=== PATIENT | female | born 1980 | race Hispanic/Latino ===

== ENCOUNTER 2019-09-09 08:38 | Emergency (ER) | payer OTHER, SELFPAY ==
--- OUTSIDE RECORDS SUMMARY | 2019-09-09 08:40 | XMS REPORT ---
:1980 [facility] Address [address] [place] [address] Dr. D[address] [place] [id number] Care Team Providers Name Role Phone Unavailable Unavailable Unavailable Problems This patient has no known problems. Allergies, Adverse Reactions, Alerts This patient has no known allergies or adverse reactions. Medications This patient has no known medications.
[2019-09-09 10:17] LABS: Absolute Lymphocytes (CBC) 0.7 K/uL (0.7-4.9); Basophils % 0.2 % (0-1.3); Hematocrit 43.4 % (36.0-45.0); Lymphocytes % 7.1 % (15.3-44.8); MPV 9.2 fL (7.6-11.3); RBC Red Blood Cell Count 5.19 M/uL (3.86-4.86)
[2019-09-09 10:31] LABS: ALT/SGPT 86 U/L (12-78); AST/SGOT 51 U/L (15-37); Albumin 3.8 g/dL (3.4-5.0); Alkaline Phosphatase 87 U/L (45-117); BUN Blood Urea Nitrogen 18 mg/dL (7-18); Bicarbonate 27 mmol/L (21-32); Bilirubin Direct 0.2 mg/dL (0-0.2); Bilirubin Total 0.7 mg/dL (0.2-1.0); Glucose Level 88 mg/dL (74-106); Lipase 131 U/L (73-393); Potassium 3.7 mmol/L (3.5-5.1); Protein, Total 7.1 g/dL (6.4-8.2); Sodium Level 142 mmol/L (136-145)
[2019-09-09] MEDS ORDERED: NA CHLORIDE 0.9% 500 ML ONE (10:31)
[2019-09-09 10:39] LABS: Urine Blood NEGATIVE (NEG); Urine Glucose NEGATIVE (NEG); Urine Protein NEGATIVE (NEG); Urine Specific Gravity 1.025 (1.005-1.030); Urine pH 7.5 (5.0-7.0)
--- NOTE | 2019-09-09 10:44 | RAD REPORT ---
EXAM DESCRIPTION: US - Abdomen Exam Limited - 09/09/2019 10:32 am CLINICAL HISTORY: Abdominal pain. COMPARISON: 2016 FINDINGS: The gallbladder wall is borderline thickened. A gallstone is not seen The biliary tree is normal caliber. IMPRESSION: Borderline gallbladder wall thickening probably not significant. Acalculous cholecystiti s can also have this appearance and should be correlated clinically
[2019-09-09 11:00] LABS: Blood Morphology Comment NOT SEEN (NOT SEEN); Platelet Estimate ADEQ
--- NOTE | 2019-09-09 11:37 | EDPHYS ---
Physician Documentation [facility] Name: Yanique Mcrae Age: 38 yrs Sex: Female : 1980 Arrival Date: 09/09/2019 Time: 08:45 Bed 15 Private MD: ED Physician Jarvis Patel HPI: 09/09 09:36 This 38 yrs old Female presents to ER via Ambulatory with complaints of khushboo Abdominal Pain, Vomiting. 09:36 The patient presents to the emergency department with nausea, vomiting, abdominal pain, khushboo of the right upper quadrant and left upper quadrant. Onset: The symptoms/episode began/occurred just prior to arrival, this morning. Possible causes: unknown. The symptoms are aggravated by food , The symptoms are alleviated by nothing. Associated signs and symptoms: The patient has no apparent associated signs or symptoms. 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 - Coronavirus screen:: The patient has NOT traveled to [place], [place], or [place] in the past 14 days. Proceed with normal triage process as indicated. - Social history:: Smoking status: Patient denies any tobacco usage or history of. - Ebola Screening: : Patient denies exposure to infectious person Patient denies travel to an Ebola-affected area in the 21 days before illness onset. ROS: 09:40 Constitutional: Negative for fever, chills, and weight loss, Eyes: Negative for injury, khushboo pain, redness, and discharge, ENT: Negative for injury, pain, and discharge, Neck: Negative for injury, pain, and swelling, Cardiovascular: Negative for chest pain, palpitations, and edema, Respiratory: Negative for shortness of breath, cough, wheezing, and pleuritic chest pain, Back: Negative for injury and pain, : Negative for injury, bleeding, discharge, and swelling, MS/Extremity: Negative for injury and deformity, Skin: Negative for injury, rash, and discoloration, Neuro: Negative for headache, weakness, numbness, tingling, and seizure, Psych: Negative for depression, anxiety, suicide ideation, homicidal ideation, and hallucinations, Allergy/Immunology: Negative for hives, rash, and allergies, Endocrine: Negative for neck swelling, polydipsia, polyuria, polyphagia, and marked weight changes, Hematologic/Lymphatic: Negative for swollen nodes, abnormal bleeding, and unusual bruising. 09:40 Abdomen/GI: Positive for abdominal pain, of the epigastric area, right upper quadrant and left upper quadrant. Exam: 09:40 Constitutional: This is a well developed, well nourished patient who is awake, alert, khushboo and in no acute distress. Head/Face: Normocephalic, atraumatic. Eyes: Pupils equal round and reactive to light, extra-ocular motions intact. Lids and lashes normal. Conjunctiva and sclera are non-icteric and not injected. Cornea within normal limits. Periorbital areas with no swelling, redness, or edema. ENT: Nares patent. No nasal discharge, no septal abnormalities noted. Tympanic membranes are normal and external auditory canals are clear. Oropharynx with no redness, swelling, or masses, exudates, or evidence of obstruction, uvula midline. Mucous membranes moist. Neck: Trachea midline, no thyromegaly or masses palpated, and no cervical lymphadenopathy. Supple, full range of motion without nuchal rigidity, or vertebral point tenderness. No Meningismus. Chest/axilla: Normal chest wall appearance and motion. Nontender with no deformity. No lesions are appreciated. Cardiovascular: Regular rate and rhythm with a normal S1 and S2. No gallops, murmurs, or rubs. Normal PMI, no JVD. No pulse deficits. Respiratory: Lungs have equal breath sounds bilaterally, clear to auscultation and percussion. No rales, rhonchi or wheezes noted. No increased work of breathing, no retractions or nasal flaring. Back: No spinal tenderness. No costovertebral tenderness. Full range of motion. Pelvic Exam: Normal external genitalia. Speculum exam with closed cervical os, no discharge or bleeding noted. Bimanual exam with normal adnexa, no adnexal or cervical motion tenderness. Normal uterus. Female : Normal external genitalia. Skin: Warm, dry with normal turgor. Normal color with no rashes, no lesions, and no evidence of cellulitis. MS/ Extremity: Pulses equal, no cyanosis. Neurovascular intact. Full, normal range of motion. Neuro: Awake and alert, GCS 15, oriented to person, place, time, and situation. Cranial nerves II-XII grossly intact. Motor strength 5/5 in all extremities. Sensory grossly intact. Cerebellar exam normal. Normal gait. Psych: Awake, alert, with orientation to person, place and time. Behavior, mood, and affect are within normal limits. 09:40 Abdomen/GI: Inspection: abdomen appears normal, Bowel sounds: normal, Palpation: Liver: no appreciated palpable abnormalities, Hernia: not appreciated. Vital Signs: 09:04 BP 104 / 75; Pulse 80; Resp 15; Temp 98.4(TE); Pulse Ox 97% on R/A; Weight 55.79 kg; ss Height 5 ft. 1 in. (154.94 cm); Pain 0/10; 10:17 BP 117 / 85; Pulse 74; Resp 18 S; Pulse Ox 95% on R/A; ca1 11:00 BP 106 / 74; Pulse 75; Resp 19 S; Pulse Ox 98% on R/A; ca1 12:00 BP 111 / 73; Pulse 64; Resp 16 S; Pulse Ox 95% on R/A; ca1 09:04 Body Mass Index 23.24 (55.79 kg, 154.94 cm) MDM: 08:52 Patient medically screened. [facility] 09:41 Data reviewed: vital signs, nurses notes, lab test result(s), radiologic studies, [facility] ultrasound. 09/09 09:36 Order name: Basic Metabolic Panel [facility] 09/09 09:36 Order name: CBC with Diff [facility] 09/09 09:36 Order name: Creatinine for Radiology [facility] 09/09 09:36 Order name: Hepatic Function [facility] 09/09 09:36 Order name: Lipase [facility] 09/09 10:15 Order name: Urine Dipstick--Ancillary (enter results) 09/09 10:15 Order name: Urine --Ancillary (enter results) 09/09 10:24 Order name: CBC with Automated Diff; Complete Time: 11:11 [facility] 09/09 10:28 Order name: Creatinine (Radiology Only); Complete Time: 11:11 [facility] 09/09 10:32 Order name: Basic Metabolic Panel; Complete Time: 11:11 [facility] 09/09 10:32 Order name: Liver (Hepatic) Function; Complete Time: 11:11 [facility] 09/09 10:32 Order name: Lipase; Complete Time: 11: [facility] 09/09 10:39 Order name: Urine --Ancillary; Complete Time: : [facility] 09/09 10:39 Order name: Urine Dipstick-Ancillary; Complete Time: 11:11 [facility] 09/09 09:36 Order name: IV Saline Lock; Complete Time: 10:15 [facility] 09/09 09:36 Order name: Labs collected and sent; Complete Time: 10:16 [facility] 09/09 09:36 Order name: US Abdomen Limited [facility] 09/09 09:36 Order name: Urine Dipstick-Ancillary (obtain specimen); Complete Time: 10:14 [facility] 09/09 09:36 Order name: Urine Test (obtain specimen); Complete Time: 10:14 [facility] 09/09 10:50 Order name: US; Complete Time: : [facility] 09/09 11:01 Order name: Manual Differential; Complete Time: : [facility] Administered Medications: 10:30 Drug: NS 0.9% 500 ml Route: IV; Rate: bolus; Site: right antecubital; ca1 11:05 Follow up: Response: No adverse reaction; IV Status: Completed infusion ca1 Disposition: 09/09/19 11:36 Discharged to Home. Impression: Abdominal tenderness, Cholelithiasis, Functional dyspepsia. - Condition is Stable. - Discharge Instructions: Abdominal Pain, Adult, Nausea and Vomiting, Adult, Cholelithiasis, Cholelithiasis, Drpk-fa-[id number], Nausea and Vomiting, Adult, Xwql-td-[id number], Abdominal Pain, Adult, Xrxu-ap-Cqfm. - Prescriptions for Bentyl 20 mg Oral Tablet - take 1 tablet by ORAL route every 6 hours As needed; 20 tablet. Pepcid 20 mg Oral Tablet - take 1 tablet by ORAL route every 12 hours for 10 days; 20 tablet. Zofran 4 mg Oral Tablet - take 1 tablet by ORAL route every 12 hours As needed; 20 tablet. Keflex 500 mg Oral Capsule - take 1 capsule by ORAL route every 6 hours for 10 days; 28 capsule. - Medication Reconciliation Form, Thank You Letter, Antibiotic Education, Prescription Opioid Use form. - Follow up: Fuentes Bishop; When: 2 - 3 days; Reason: Recheck today's complaints, Re-evaluation by your physician. - Problem is new. - Symptoms have improved. Signatures: Dispatcher [employer] EDWI Jarvis Patel MD MD cha Smirch, Shelby, RN RN ss Vi Fierro RN RN ca1 Corrections: (The following items were deleted from the chart) 12:35 11:36 09/09/2019 11:36 Discharged to Home. Impression: Abdominal tenderness; ca1 Cholelithiasis; Functional dyspepsia. Condition is Stable. Discharge Instructions: Abdominal Pain, Adult, Cholelithiasis, Cholelithiasis, Jyeb-ae-Zwgn, Abdominal Pain, Adult, Oluc-qn-Gpyp. Prescriptions for Bentyl 20 mg Oral Tablet - take 1 tablet by ORAL route every 6 hours As needed; 20 tablet, Pepcid 20 mg Oral Tablet - take 1 tablet by ORAL route every 12 hours for 10 days; 20 tablet, Zofran 4 mg Oral Tablet - take 1 tablet by ORAL route every 12 hours As needed; 20 tablet. and Forms are Medication Reconciliation Form, Thank You Letter, Antibiotic Education, Prescription Opioid Use. Follow up: Fuentes Bishop; When: 2 - 3 days; Reason: Recheck today's complaints, Re-evaluation by your physician. Problem is new. Symptoms have improved. khushboo
--- NOTE | 2019-09-09 11:37 | ER ---
Nurse's Notes [facility] Name: Yanique Mcrae Age: 38 yrs Sex: Female : 1980 Arrival Date: 09/09/2019 Time: 08:45 Bed 15 Private MD: Diagnosis: Abdominal tenderness;Cholelithiasis;Functional dyspepsia Presentation: 09/09 09:06 Presenting complaint: Patient states: vomiting x 1 and upper abd cramping that comes ss and goes x 2 days. Transition of care: patient was not received from another setting of care. Onset of symptoms was September 09, 2019. Risk Assessment: Do you want to hurt yourself or someone else? Patient reports no desire to harm self or others. Initial Sepsis Screen: Does the patient meet any 2 criteria? No. Patient's initial sepsis screen is negative. Does the patient have a suspected source of infection? No. Patient's initial sepsis screen is negative. Care prior to arrival: None. 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 - Coronavirus screen:: The patient has NOT traveled to [place], [place], or [place] in the past 14 days. Proceed with normal triage process as indicated. - Social history:: Smoking status: Patient denies any tobacco usage or history of. - Ebola Screening: : Patient denies exposure to infectious person Patient denies travel to an Ebola-affected area in the 21 days before illness onset. Screenin:02 Abuse screen: Denies threats or abuse. Denies injuries from another. Nutritional ca1 screening: No deficits noted. Tuberculosis screening: No symptoms or risk factors identified. Fall Risk IV access (20 points). Assessment: 10:02 General: Appears in no apparent distress. comfortable, Behavior is calm, cooperative, ca1 appropriate for age. 10:02 Pain: Complains of pain in epigastric area and left upper quadrant and right upper ca1 quadrant Pain does not radiate. Pain currently is 6 out of 10 on a pain scale. Pain began 1 day ago. Neuro: Level of Consciousness is awake, alert, obeys commands, Oriented to person, place, time, situation, Appropriate for age. Respiratory: Airway is patent Respiratory effort is even, unlabored, Respiratory pattern is regular, symmetrical, Breath sounds are clear bilaterally. GI: Abdomen is round non-distended, Bowel sounds present X 4 quads. Abd is soft X 4 quads Abdomen is tender to palpation in epigastric area and left upper quadrant and right upper quadrant Reports nausea, vomiting, since last night. : No signs and/or symptoms were reported regarding the genitourinary system. EENT: No deficits noted. No signs and/or symptoms were reported regarding the EENT system. Derm: Skin is intact, is healthy with good turgor, Skin is pink, warm \T\ dry. Musculoskeletal: Circulation, motion, and sensation intact. Capillary refill < 3 seconds. 10:17 Reassessment: Patient appears in no apparent distress at this time. Patient and/or ca1 family updated on plan of care and expected duration. Pain level reassessed. Patient is alert, oriented x 3, equal unlabored respirations, skin warm/dry/pink. 11:11 Reassessment: Patient appears in no apparent distress at this time. Patient and/or ca1 family updated on plan of care and expected duration. Pain level reassessed. Patient is alert, oriented x 3, equal unlabored respirations, skin warm/dry/pink. 12:05 Reassessment: Patient appears in no apparent distress at this time. Patient is alert, ca1 oriented x 3, equal unlabored respirations, skin warm/dry/pink. Vital Signs: 09:04 BP 104 / 75; Pulse 80; Resp 15; Temp 98.4(TE); Pulse Ox 97% on R/A; Weight 55.79 kg; Height 5 ft. 1 in. (154.94 cm); Pain 0/10; 10:17 BP 117 / 85; Pulse 74; Resp 18 S; Pulse Ox 95% on R/A; ca1 11:00 BP 106 / 74; Pulse 75; Resp 19 S; Pulse Ox 98% on R/A; ca1 12:00 BP 111 / 73; Pulse 64; Resp 16 S; Pulse Ox 95% on R/A; ca1 09:04 Body Mass Index 23.24 (55.79 kg, 154.94 cm) ED Course: 08:45 Patient arrived in ED. mr 08:52 Jarvis Patel MD is Attending Physician. khushboo 08:56 Karma Blanc, RN is Primary Nurse. [facility] 09:04 Arm band placed on right wrist. 09:07 Triage completed. 10:02 Patient has correct armband on for positive identification. Placed in gown. Bed in low ca1 position. Call light in reach. Side rails up X 1. Pulse ox on. NIBP on. Warm blanket given. 10:16 No provider procedures requiring assistance completed. Initial lab(s) drawn, by id, ca1 sent to lab. Inserted saline lock: 20 gauge in right antecubital area, using aseptic technique. Blood collected. 11:36 Fuentes Bishop MD is Referral Physician. khushboo 12:33 IV discontinued, intact, bleeding controlled, No redness/swelling at site. Pressure ca1 dressing applied. Administered Medications: 10:30 Drug: NS 0.9% 500 ml Route: IV; Rate: bolus; Site: right antecubital; ca1 11:05 Follow up: Response: No adverse reaction; IV Status: Completed infusion ca1 Outcome: 11:36 Discharge ordered by . khushboo 12:33 Discharged to home ambulatory, with family. ca1 12:33 Condition: stable 12:33 Discharge instructions given to patient, Instructed on discharge instructions, follow up and referral plans. medication usage, Demonstrated understanding of instructions, follow-up care, medications, Prescriptions given X 4. 12:35 Patient left the ED. ca1 Signatures: Jarvis Patel MD MD cha Rivera, Mary mr Chelsey Washington, RN RN Karma Blanc, JENIFFER SWIFT jlVi Rivera RN RN ca1
[2019-09-11 05:51] VITALS: BP 111/73; O2SAT 95
[2019-09-11 06:08] VITALS: TEMP 98.4
== END 2019-09-09 12:35 | disposition home or self-care (01) ==
LOC: ER 08:38
DX: K80.20 Calculus of gallbladder without cholecystitis without obstruction (principal); K30 Functional dyspepsia
CPT/HCPCS: 85025; 80048; 36415; 81025; 80076; 81003; 83690; 76705; 96360; 99284; J7040

== ENCOUNTER 2019-09-19 07:31 | Day surgery (SDC) | payer OTHER ==
--- OUTSIDE RECORDS SUMMARY | 2019-09-19 07:35 | XMS REPORT | Summary of Care ---
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 (vaginal after ) docusate calcium 240 mg Take 1 capsule 60 capsule 1 08/04/2019 Active capsuleIndications: by mouth once (vaginal daily as needed after ) for Constipation. ferrous sulfate 325 mg Take 1 tablet by 60 tablet 2 08/04/2019 Active (65 mg iron) mouth 2 (two) tabletIndications: times daily. (vaginal after ) ibuprofen 600 mg Take 1 tablet by 60 tablet 1 08/04/2019 Active tabletIndications: mouth every 6 (vaginal after (six) hours as ) needed (Pain). Take with food or milk. metroNIDAZOLE (FLAGYL) Take 1 tablet by 10 tablet 0 08/04/2019 Active 500 mg mouth 2 (two) tabletIndications: times daily. (vaginal after ) ibuprofen 800 mg Take 1 tablet by 30 tablet 1 08/04/2019 Active tabletIndications: mouth every 6 (vaginal after (six) hours as ) needed for Pain (scale 4-6). HYDROcodone-acetaminoph Take 1 tablet by 10 tablet 0 08/04/2019 Active en 5-325 mg mouth every 6 tabletIndications: (six) hours as Multiparity needed for Pain (scale 4-6). documented as of this encounter (statuses as of 08/22/2019) Active Problems Problem Noted Date S/P tubal ligation 08/04/2019 Labor and delivery, indication for care 07/31/2019 35 weeks gestation of 07/31/2019 IUGR (intrauterine growth restriction) affecting care of mother, third 2018 trimester, fetus 1 (vaginal after ) 03/21/2018 Rubella non-immune status, antepartum 10/23/2017 Overview: Address Previous delivery affecting , antepartum 10/22/2017 Multiparity 10/22/2017 AMA (advanced maternal age) multigravida 35+, second trimester 10/22/2017 Supervision of high risk in third trimester 12/26/2013 Overview: ICD10 Diagnosis Term Art Gilder Utility documented as of this encounter (statuses as of 08/22/2019) Resolved Problems Problem Noted Date Resolved Date Normal spontaneous vaginal delivery 08/03/2019 08/04/2019 Abnormal maternal glucose tolerance, antepartum 05/14/2019 06/10/2019 Well woman exam 05/10/2018 04/30/2019 Contraceptive management 05/10/2018 04/30/2019 Routine follow-up 04/09/2018 04/30/2019 (spontaneous vaginal delivery) 03/21/2018 03/21/2018 Single live 03/21/2018 04/09/2018 Thrombocytopenia 03/21/2018 04/09/2018 Laceration, obstetrical, Minor 03/21/2018 04/09/2018 39 weeks gestation of 03/20/2018 04/09/2018 Tubal ligation status 01/03/2018 05/10/2018 Overview: desires Pain of round ligament affecting , antepartum 11/19/2017 04/09/2018 Abnormal quad screen 10/23/2017 04/09/2018 Overview: Needs detailed usg with genetics Supervision of high-risk with insufficient 10/22/201705/2018 care History of 10/22/2017 04/09/2018 Overview: 05/2008- see scanned records UTI symptoms 10/03/2016 10/22/2017 Well woman exam 11/23/2015 10/22/2017 Contraceptive management 11/23/2015 10/22/2017 Vaginal yeast infection 11/23/2015 10/22/2017 Missed 01/16/2014 02/09/2014 Family history of Downs syndrome 12/26/2013 02/09/2014 Nausea and vomiting in prior to 22 weeks gestation 12/26/201302/09 Cervical high risk human papillomavirus (HPV) DNA test positive 12/08/2013 Overview: Neg pap. +HR HPV. Repeat screening in 1 year. Rubella non-immune status, antepartum 12/01/2013 11/23/2015 Other malaise and fatigue 11/28/2013 11/23/2015 Supervision of normal 11/28/2013 12/26/2013 documented as of this encounter (statuses as of 08/22/2019) Immunizations Name Administration Dates Next Due MMR 03/21/2018 Tdap 06/10/2019, 01/02/2018, 11/23/2015 documented as of this encounter Social History Tobacco Use Types Packs/Day Years Used Date Never Smoker Smokeless Tobacco: Never Used Alcohol Use Drinks/Week oz/Week Comments Yes 0 Standard drinks or equivalent 0.0 socially prior to Education Answer Date Recorded What is the highest level of school you have completed or 11th grade 2019 the highest degree you have received? Sex Assigned at Date Recorded Not on file Job Start Date Occupation Industry Not on file Not on file Not on file Travel History Travel Start Travel End No recent travel history available. documented as of this encounter Last Filed Vital Signs Not on filedocumented in this encounter Plan of Treatment Date Type Specialty Care Team Description 08/25/2019 Routine Visit [facility] [address] [place] [address] [phone] Health Maintenance Due Date Last Done Comments INFLUENZA VACCINE (#1) 2020 Postponed from 03/30/2019 (Refused) PAP SMEAR 10/22/2020 10/22/2017, 11/23/2015, 11/28/2013 DTaP,Tdap,and Td Vaccines (4 06/10/2029 06/10/2019, - Td) 01/02/2018, 11/23/2015 PNEUMOCOCCAL 0-64 YEARS Aged Out No longer eligible based COMBINED SERIES on patient's age to complete this topic documented as of this encounter Results Not on filedocumented in this encounter Insurance Payer Benefit Plan / Subscriber ID Effective Dates Phone Address Type Group [facility] xxxxxxxxx 2017-Present Medicaid COMM PLAN - MANAGED MEDICAID documented as of this encounter Advance Directives Name Relationship Healthcare Agent Communication Relationship Eros Mcrae Spouse Primary healthcare agent Mackenzie Mcrae Child Second alternate healthcare [phone] agent (Mobile) Jazmine Lancaster Other Second alternate healthcare [phone] agent (Home)
--- OUTSIDE RECORDS SUMMARY | 2019-09-19 07:35 | XMS REPORT ---
:1980 [facility] Address [address] [place] [address] Dr. D[address] [place] [id number] Care Team Providers Name Role Phone Unavailable Unavailable Unavailable Problems This patient has no known problems. Allergies, Adverse Reactions, Alerts This patient has no known allergies or adverse reactions. Medications This patient has no known medications.
--- OUTSIDE RECORDS SUMMARY | 2019-09-19 07:36 | XMS REPORT | Summary of Care ---
:[address] [facility] Address [address] [place] [id number] Care Team Providers Name Role Phone Kristin Ghotra Insurance [employer] Cordelia Fregoso SEALS ENGRAVER Primary Care Provider Reason for Visit Reason Comments Well Woman Exam Encounter Details Date Type Department Care Team Description 09/15/2019 Office Visit [facility]- Cordelia Fregoso Well woman exam (Primary Dx); S[facility] [place] Encounter for surveillance of contraceptives, unspecified contraceptive; [address] [place] [address] History of bilateral tubal ligation [place] [id number] [place] [id number] Allergies No Known Allergiesdocumented as of this encounter (statuses as of 09/15/2019) Medications Medication Sig Dispensed Refills Start Date [...] as Multiparity needed for Pain (scale 4-6). famotidine (PEPCID) 20 Take 20 mg by 0 Active mg tablet mouth 2 (two) times daily. documented as of this encounter (statuses as of 09/15/2019) Active Problems Problem Noted Date S/P tubal ligation 08/04/2019 Rubella non-immune status, antepartum 10/23/2017 Overview: Address documented as of this encounter (statuses as of 09/15/2019) Resolved Problems Problem Noted Date Resolved Date Routine follow-up 08/25/2019 09/15/2019 Normal spontaneous vaginal delivery 08/03/2019 08/04/2019 Labor and delivery, indication for care 07/31/2019 08/25/2019 35 weeks gestation of 07/31/2019 08/25/2019 IUGR (intrauterine growth restriction) affecting care of 06/24/20192019 mother, third trimester, fetus 1 Abnormal maternal glucose tolerance, antepartum 05/14/2019 06/10/2019 Well woman exam 05/10/2018 04/30/2019 Contraceptive management 05/10/2018 04/30/2019 Routine follow-up 04/09/2018 04/30/2019 (spontaneous vaginal delivery) 03/21/2018 03/21/2018 Single live 03/21/2018 04/09/2018 Thrombocytopenia 03/21/2018 04/09/2018 Laceration, obstetrical, Minor 03/21/2018 04/09/2018 (vaginal after ) 03/21/2018 08/25/2019 39 weeks gestation of 03/20/2018 04/09/2018 Tubal ligation status 01/03/2018 05/10/2018 Overview: desires Pain of round ligament affecting , antepartum 11/19/2017 04/09/2018 Abnormal quad screen 10/23/2017 04/09/2018 Overview: Needs detailed usg with genetics Previous delivery affecting , antepartum 10/22/20172019 Multiparity 10/22/2017 08/25/2019 Supervision of high-risk with insufficient 10/22/201705/2018 care AMA (advanced maternal age) multigravida 35+, second trimester 10/22/2017 History of 10/22/2017 04/09/2018 Overview: 05/2008- see scanned records UTI symptoms 10/03/2016 10/22/2017 Well woman exam 11/23/2015 10/22/2017 Contraceptive management 11/23/2015 10/22/2017 Vaginal yeast infection 11/23/2015 10/22/2017 Missed 01/16/2014 02/09/2014 Family history of Downs syndrome 12/26/2013 02/09/2014 Nausea and vomiting in prior to 22 weeks gestation 12/26/201302/09 Supervision of high risk in third trimester 12/26/2013 08/25/2019 Overview: ICD10 Diagnosis Term 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 +HR HPV. Repeat screening in 1 year. Rubella non-immune status, antepartum 12/01/2013 11/23/2015 Other malaise and fatigue 11/28/2013 11/23/2015 Supervision of normal 11/28/2013 12/26/2013 documented as of this encounter (statuses as of 09/15/2019) Immunizations Name Administration Dates Next Due MMR [...] of this encounter Last Filed Vital Signs Vital Sign Reading Time Taken Comments Blood Pressure 97/67 09/15/2019 9:53 AM BUSINESS BANKING REPRESENTATIVE Pulse 64 09/15/2019 9:53 AM BUSINESS BANKING REPRESENTATIVE Temperature 36.4 C (97.5 F) 09/15/2019 9:53 AM BUSINESS BANKING REPRESENTATIVE Respiratory Rate 16 09/15/2019 9:53 AM BUSINESS BANKING REPRESENTATIVE Oxygen Saturation - - Inhaled Oxygen Concentration - - Weight 54.4 kg (120 lb) 09/15/2019 9:53 AM BUSINESS BANKING REPRESENTATIVE Height 154.9 cm (5' 1") 09/15/2019 9:53 AM BUSINESS BANKING REPRESENTATIVE Body Mass Index 22.67 09/15/2019 9:53 AM BUSINESS BANKING REPRESENTATIVE documented in this encounter Patient Instructions Patient InstructionsSonal Christiansen RN - 09/15/2019 9:30 AM CST Breast Health: Breast Self-Awareness What is breast self-awareness? Breast self-awareness is knowing how your breasts normally look and feel. Your breasts change as yougo through different stages of your life. So its important to learn what is normal for your breasts. Knowing about your breasts helps you spot any changes in them right away. Tell your healthcare provider about any changes. Why is breast self-awareness important? Many experts now say that women should focus on breast self-awareness instead of doing a breast self-examination (BSE). These experts include the [employer] and the [place] [employer] Gynec[employer]. Some experts even advise not teaching women to do a BSE. Thats because research hasnt shown a clear benefit to doing BSEs. Breast self-awareness is different than a BSE. It isnt about following a certain method and schedule. Its about knowing what's normal for your breasts. That way you can spot even small changes right away. If you see any changes, tell your healthcare provider. Changes to look for Call your healthcare provider if you find any changes in your breasts that worry you. These changes may be: A lump Nipple discharge other than breastmilk, especially if it's bloody Swelling A change in size or shape Skin changes, such as redness, thickening, or dimpling of the skin Swollen lymph nodes in the armpit Nipple problems, such as pain or redness If you find a lump Call your provider if you find lumpiness in one breast. Also call if you feel something different inthe tissue or feel a definite lump. Sometimes lumpiness may be due to menstrual changes. But there may be reason for concern. Your provider may want to see you right away if you have: Nipple discharge that is bloody Skin changes on your breast, such as dimpling or puckering Its okay to be upset if you find a lump. Be sure to call your provider right away. Remember that most breast lumps are benign. This means they are not cancer. [employer] last reviewed this educational content on 02/27/201719994751-8979 [employer]. [address] [place] [address]. All rights reserved. This information is not intended as a substitute for professional medical care. Always follow your healthcare professional's instructions. Clinical Breast Exam Many health organizations recommend a yearly clinical breast exam. This exam may be done by a civil engineer helper, family healthcare provider, nurse practitioner, nurse sales demonstrator, or specially trained nurse. Yearly breast exams help tomake surethat breast conditions are found early. Your healthcare providers role A healthcare professional knows the tests and follow-up care needed if a problem is found. Your clinical exam is also a great time to ask questions about breast self-exams. You can find out if yourechecking your breasts in the best way. Or you may want to ask how , breast implants, or breast reduction surgery affect the way you should check your breasts. Diagnostic tests If a clinical exam reveals a breast change, you may have other tests to find out more. These tests may include: Mammography. A low-dose X-ray of your breast tissue. Ultrasound. An imaging test that uses sound waves to create images of your breast. Biopsy. A small amount of breast tissue is removed by needle or by a cut ( incision). The tissue is then checked under a microscope. Guidelines for having clinical breast exams The [employer]ians [employer] Gynec[employer] recommends that starting at age 29, you should have a clinical breast exam every 1 to 3 years. After age 40, have a clinical breast exam each year. If youre at higher risk for breast cancer, you may need exams more often. Risk factors for breast cancer may include: Being over 50 or postmenopausal Having a family history of breast cancer Having the BRCA1 or BRCA2 gene mutation or certain other gene mutations Having more menstrual periods due to starting menstruation early(before age 12) or having a late menopause (after age 55) Having no pregnancies Having a first after age 30 Being obese Having a history of radiation treatment to your chest area Exposure to ORLIN during your mother's Not being active Drinking too much alcohol Having dense breast tissue Taking hormone therapy after menopause Other health organizations have different recommendations. Talk with your healthcare provider about what is best for you. [employer] claudia reviewed this educational content on 02/27/201719996427-9086 [employer]. [address] [place] [address]. All rights reserved. This information is not intended as a substitute for professional medical care. Always follow your healthcare professional's instructions. Prevention Guidelines,Women Ages 18 to 39 Screening tests and vaccines are an important part of managing your health. A screening test is doneto find possible disorders or diseases in people who don' t have any symptoms. The goal is to find a disease early so lifestyle changes can be made and you can be watched more closely to reduce the riskof disease, or to detect it early enough to treat it most effectively. Screening tests are not considered diagnostic, but are used to determine if more testing is needed. Health counseling is essential, too. Below are guidelines for these, for women ages 18 to 39. Talk with your healthcare provider tomake sure youre up-to- date on what you need. Screening Who needs it How often Alcohol misuse All women in this age group At routine exams Blood pressure All women in this age group Yearly checkup if your blood pressure is normal Normal blood pressure is less than 120/80 mm Hg If your blood pressure reading is higher than normal, follow the advice of your healthcare provider Breast cancer All women in this age group should talk with their healthcare providers about the needfor clinical breast exams (CBE)1 Clinical breast exam every 3 years1 Cervical cancer Women ages 21 and older Women between ages 21 and 29 should have a Pap test every 3 years; women between ages 30 and 65 are advised to have a Pap test plus an HPV test every 5 years Chlamydia Sexually active women ages 25 and younger, and women at increased risk for infection (suchas having multiple sex partners) Every year if you're at risk or have symptoms Depression All women in this age group At routine exams Type 2 diabetes, prediabetes All women with no symptoms who are overweight or obese and have 1 or more other risk factors for diabetes At least every 3 years. Also, testing for diabetes during after the 24th week. Type 2 diabetes, prediabetes All women diagnosed with gestational diabetes Lifelong testing every 3 years Type 2 diabetes All women with prediabetes Every year Gonorrhea Sexually active women at increased risk for infection At routine exams Hepatitis C Anyone at increased risk At routine exams HIV All women should be tested at least once for HIV between the ages of 13 and 64 At routine exams.Those with risk factors for HIV should be tested at least annually. Obesity All women in this age group At routine exams Syphilis Women at increased risk for infection should talk with their healthcare provider At routineexams Tuberculosis Women at increased risk for infection should talk with their healthcare provider Ask your healthcare provider Vision All women in this age group At least 1 complete exam in your 20s, and 2 in your 30s Vaccine2 Who needs it How often Chickenpox (varicella) All women in this age group who have no record of this infection or vaccine 2doses; the second dose should be given 4 to 8 weeks after the first dose Hepatitis A Women at increased risk for infection should talk with their healthcare provider 2 dosesgiven at least 6 months apart Hepatitis B Women at increased risk for infection should talk with their healthcare provider 3 dosesover 6 months; second dose should be given 1 month after the first dose; the third dose should be given at least 2 months after the second dose and at least 4 months after the first dose Haemophilus influenzaeType B (HIB) Women at increased risk for infection should talk with their healthcare provider 1 to 3 doses Human papillomavirus (HPV) All women in this age group up to age 26 3 doses; the second dose should be given 1 to 2 months after the first dose and the third dose given 6 months after the first dose Influenza (flu) All women in this age group Once a year Measles, mumps, rubella (MMR) All women in this age group who have no record of these infections or vaccines 1 or 2 doses Meningococcal Women at increased risk for infection should talk with their healthcare provider 1 or more doses Pneumococcal conjugate vaccine (PCV13)and pneumococcal polysaccharide vaccine(PPSV23) Women at increased risk for infection should talk with their healthcare provider PCV13: 1 dose ages 19 to 65 (protects against 13 types of pneumococcal bacteria) PPSV23: 1 to2 doses through age 64, or 1 dose at 65 or older (protects against 23 types of pneumococcal bacteria) Tetanus/diphtheria/pertussis (Td/Tdap) booster All women in this age group Td every 10 years, or a one-time dose of Tdap instead of a Td booster after age 18 , then Td every 10 years Counseling Who needs it How often BRCA gene mutation testing for breast and ovarian cancer susceptibility Women with increased risk for having gene mutation When your risk is known Breast cancer and chemoprevention Women at high risk for breast cancer When your risk is known Diet and exercise Women who are overweight or obese When diagnosed, and then at routine exams Domestic violence Women at the age in which they are able to have children At routine exams Sexually transmitted infection prevention Women who are sexually active At routine exams Skin cancer Prevention of skin cancer in fair-skinned adults At routine exams Use of tobacco and the health effects it can cause All women in this age group Every visit 1 According to the ACS, women ages 20 to 39 years should have a clinical breast exam (CBE) as part of their routine health exam every 3 years. Breast self- exams are an option for women starting in their 20s.But the USPSTF does not recommend CBE. [employer] last reviewed this educational content on 04/29/201719998416-7922 [employer]. [address] [place] [address]. All rights reserved. This information is not intended as a substitute for professional medical care. Always follow your healthcare professional's instructions. What Are Sexually Transmitted Infections (STIs)? A sexually transmitted infection (STI) is an infection that is spread during sex. An STI can also becalled STD for sexually transmitted disease. You can become infected with an STI if you have sex with someone who has an STI. Any sex that involves the penis, vagina, anus, or mouth can spread these infections. Some STIs also spread through body fluids such as semen, vaginal fluid, or blood. Others spread through contact with infected skin. The most common STIs are chlamydia, genital warts , genital herpes, syphilis, HIV, gonorrhea, and trichomoniasis. Who is at risk? It doesnt matter if youre straight or delgadillo, male or female, young or old. Any person who has sex can get an STI. Your risk increases if: You have more than one partner. The more partners you have, the greater your risk. Your partner has other partners. If your partner is exposed to an STI, you could be, too. You or your partner have had sex with other people in the past. Either of you might be carrying an STI from an earlier partner. You have an STI. The STI may cause sores or other health problems that increase your risk for newinfections. Your risk will stay high unless you are treated for your current STI and change the behaviors that put you at risk. Prevent future problems Left untreated, certain STIs can lead to cancer or, rarely, . Some can harm unborn babies whosemothers are infected. Others can cause you to not be able to have children (sterility) or can affectchanges in behavior or your ability to think. You can prevent these problems with safer sex, regularcheckups , and early treatment. Always use a latex condom when you have sex. Get tested if youre at risk. And get treated early if you have an STI. Places on or in the body where STDs cause damage include reproductive organs, the rectum, and the mouth. Getting checked The only sure way to know if you have an STI is to get checked by a healthcare provider. If you notice a change in how your body looks or feels, have it checked out. But keep in mind, STIs dont always show symptoms. So if you re at risk for STIs, get checked regularly. If you find you have an STI, have your partner get treatment. If not, his or her health is at risk. And left untreated, your partner could pass the STI back to you, or on to others. Common symptoms Be alert to any changes in your body and your partners body. Symptoms may appear in or near the vagina, penis, rectum, mouth, or throat. They may include: Unusual discharge Lumps, bumps, or rashes Sores that may be painful, itchy, or painless Itchy skin Burning with urination Pain in the pelvis, belly (abdomen), or rectum Bleeding from the rectum Even if you dont have symptoms You may have an STI even if you dont have symptoms. If you think you are at risk, get checked. Goto a clinic or to your healthcare provider. If your partner has an STI, you need to be tested even if you feel fine. Vaccines to prevent disease Vaccines are available to prevent hepatitis A and hepatitis B. These are 2 kinds of STIs. There is also a vaccine to prevent human papillomavirus (HPV). This is a virus that can be passed from person to person through sexual contact. Ask your healthcare provider whether any of these vaccines is right for you. [employer] last reviewed this educational content on 06/29/201819990892-2122 [employer]. [address] [place] [address]. All rights reserved. This information is not intended as a substitute for professional medical care. Always follow your healthcare professional's instructions. Understanding HPV (Human Papillomavirus) HPV (human papillomavirus) is a virus that causes warts. It can be hard to detect, so many people never even know they have it. Some types (strains) of HPV may cause warts on the hands, legs, or other parts of the body. These can spread from person to person. Other strains of HPV cause wartsin the genital area. A few of these strains can cause certain cancers: Cancers of the cervix, vagina, and vulva in women Cancers of the penis in men Cancers of the anus and back of the throat, including the base of the tongue and tonsils in both women and men . Treating genital forms of HPV now can help prevent serious health problems in the future. How was I infected? HPV is passed from person to person through contact with infected skin. Everyone with HPV has a different experience. Some people notice genital warts ( condyloma) within a few months of exposure. In other people, warts take years to appear or may never appear. This makes it almost impossible to know when or by whom you were infected. How warts form HPV lives inside skin and mucous membrane (including in the mouth and vagina). The virus can make skin cells reproduce more often than they should. These extra skin cells build up into warts. 1. HPV invades the skin. 2. DNA from the virus enters skin cells. 3. HPV causes infected skin cells to multiply and form warts. 4. The virus sheds, allowing it to be passed to others. [employer] last reviewed this educational content on 12/28/201819996970-9074 [employer]. [address] [place] [address]. All rights reserved. This information is not intended as a substitute for professional medical care. Always follow your healthcare professional's instructions. Understanding HIV and AIDS It's important to know how HIV can get into your body and what happens once it s there. Then youll be better prepared to protect yourself or others against this virus. A person with HIV can look and feel perfectly healthy. But that person can give HIV to others as soon as he or she is infected with the virus. Having unsafe or unprotected sex or sharing needles puts you at risk for HIV. Talk with your healthcare provider about ways to protect yourself or a loved one from getting HIV. How HIV infection progresses After HIV enters the body, it attacks the immune system in the stages below. A person with HIV can infect others once the virus gets into the blood. HIV with no symptoms. A person with HIV may have no symptoms for years. The only sign of infection may be a positive blood test for HIV 2 weeks to 3 months or later after HIV enters the body. HIV with symptoms. Some people develop an illness similar to mono ( mononucleosis) 2 to 4 weeks after the virus enters the body. This is called acute retroviral syndrome. Symptoms may include swollen lymph glands, chills, fever, night sweats, weakness, weight loss, skin rashes, mouth ulcers, or sore throat. Symptoms may be mild or the person can feel quite sick. Even without treatment the symptoms almost always go away in a few days or up to 2 to 3 weeks. Then the person has no symptoms, often for years. But over time the immune system starts to get weaker and symptoms start appearing. People at this stage may have a yeast infection in the mouth (oral thrush), shingles, skin problems, pneumonia, diarrhea that keeps coming back, or weight loss. AIDS. AIDS is the most advanced stage of HIV infection, when the immune system is severely weakened.Certain rare diseases and cancers that normally would not occur, now can occur because the body can no longer fight them well enough. It is often these diseases that cause in people with AIDS. HIV may also directly attack the brain and nervous system. This causes seizures and loss of memory and body movement. It also affects many other parts of the body. This leads to problems such as anemia, low white blood cell count, diarrhea, belly pain, skin problems, and many others. How HIV enters the body HIV is carried in semen, vaginal fluid, blood, and breastmilk. During sex, HIV can enter the body. It gets in through the fragile tissue and linings, sores, or cuts in or around the vagina, penis, anus, and mouth. During drug use, tattooing, or body piercing, the virus can enter the blood through an infected needle. A mother who has HIV can infect her child during , childbirth, and . [employer] last reviewed this educational content on 12/28/201819999011-6144 [employer]. [address] [place] [address]. All rights reserved. This information is not intended as a substitute for professional medical care. Always follow your healthcare professional's instructions. Control Methods control methods are used to help prevent .There are many different methods to choose from. Talk to your healthcare provider about which method is right for you.Be sure to ask your provider about the effectiveness of each method. Also ask about the benefits, risks, and side effects of each method. Hormones Some control methods work by releasing hormones such as progestin and estrogen. These methods include hormone implants, hormone shots, the vaginal ring, the patch,and control pills. They all work by stopping ovulation ( release of the egg from the ovary). The implant is a small device that needs to be placed in the upper arm by a trained healthcare provider. It works for up to 3 years.Hormone injections must be repeated every 3 months.The vaginal ring must be replaced monthly (it can be removed during the fourth week of each cycle). The patch must be replaced weekly (it is not worn during the fourth week of each cycle). control pills must be taken every day. All of these methods are effective and can be stopped at any time. Intrauterine device (IUD) An IUD is a small, T-shaped device. It must be placed in the uterus by a trained healthcare provider.There are different types of IUDs available. They work by causing changes in the uterus that make it harder for sperm to reach the egg. Depending on the type of IUD you have, it may work for several years or longer. The IUD is a reversible control method. This means it can be removed at any time. Condom A condom is a sheath that forms a thin barrier between the penis and the vagina.It helps prevent by keeping sperm from entering the vagina. When latex condoms are used, they have the added benefit of protecting against most STIs (sexually transmitted infections).Condoms are used each time there is sexual intercourse and should be discarded after each use. Ask your healthcare provider about the different types of condoms available. These include both the male condom and female condom. Spermicide Spermicides come as foams, jellies, creams, suppositories, andtablets. They help prevent by killing sperm. When used alone they are not that reliable. They work best when combined with other control methods such as diaphragms and cervical caps. Sponge, diaphragm, and cervical cap All of these methods help prevent by covering the opening of the uterus (cervix). This prevents sperm from passing through. The sponge contains spermicide. It can be bought over the counter. The sponge must be left in place for at least 6 hours after the last time you have sex. However, it should not stay in place for morethan 24 hours. It should be discarded after it is used. Thediaphragmand cervical cap must be fitted and prescribed by your healthcare provider. Both areused with spermicide.The diaphragm must be left in place for at least 6 hours after sex. However, it should not stay in place for more than 24 hours.It can be washed and reused. The cervical cap must be left in place for at least 6 hours after sex. However, it should not stay in place for more than 48 hours. It can be washed and reused. Withdrawal method This is when the man pulls his penis out of the vagina just before ejaculation ( coming). This lowers the amount of sperm entering the vagina. Be aware that fluids released just before ejaculationoften still contain some sperm, so this method is not as reliable as certain other methods. Rhythm method This method requires that you know when in your menstrual cycle you are likely to become . Then, you avoid sex during those days. This requires careful planning and good discipline. Your healthcare provider can explain more about how this works. Tubal ligation and vasectomy These are surgical methods to prevent . Tubal ligation is an option for women. The fallopian tubes are blocked or cut (ligated). This keeps the egg from passing into the uterus or sperm from reaching the egg. Vasectomy is an option for men. The tubes that normally carry sperm to the penis areeither closed or blocked. Both tubal ligation and vasectomy are permanent control methods. This means reversal is either not possible or unlikely to work.They are good choices for women and menwho know that they do not want to have children in the future. [employer] last reviewed this educational content on 05/30/201719997045-5438 [employer]. [address] [place] [address]. All rights reserved. This information is not intended as a substitute for professional medical care. Always follow your healthcare professional's instructions. How Control Works control prevents by preventing conception. Some methods prevent an egg from maturing. Some keep the sperm and egg from meeting. And some methods work in both ways. Preventing ovulation Certain hormones help prevent an egg from maturing and being released. Hormone methods include: control pills Skin patches Contraceptive vaginal rings Injections Preventing sperm and egg from meeting Methods that prevent the sperm and egg from joining include: Barrier methods, such as the condom, the diaphragm, and the cervical cap Spermicide The IUD (intrauterine device) Sterilization Natural family planning Some types of hormone methods [employer] last reviewed this educational content on 09/27/201619996930-7698 [employer]. [address] [place] [id number]. All rights reserved. This information is not intended as a substitute for professional medical care. Always follow your healthcare professional's instructions. 4 Steps for Eating Healthier Changing the way you eat can improve your health. It can lower your cholesterol and blood pressure, and help you stay at a healthy weight. Your diet doesnt have to be bland and boring to be healthy.Just watch your calories and follow these steps: Step 1. Eat fewer unhealthy fats Choose more fish and lean meats instead of fatty cuts of meat. Skip butter and lard, and use less margarine. Pass on foods that have palm, coconut, or hydrogenated oils. Eat fewer high-fat dairy foods like cheese, ice cream, and whole milk. Get a heart-healthy cookbook and try some low-fat recipes. Step 2.Go light on salt Keep the saltshaker off the table. Limit high-salt ingredients, such as soy sauce, bouillon, and garlic salt. Instead of adding salt when cooking, season your food with herbs and flavorings. Try lemon, garlic, and onion, or salt-free herb seasonings. Limit convenience foods, such as boxed or canned foods and restaurant food. Read food labels and choose lower-sodium options. Step 3. Limit sugar Pause before you add sugars to pancakes, cereal, coffee, or tea. This includes white and brown table sugar, syrup, honey, and molasses. Cut your usual amount by half. Use non-sugar sweeteners. Stevia, aspartame, and sucralose can satisfy a sweet tooth without adding calories. Swap out sugar-filled soda and other drinks. Buy sugar-free or low-calorie beverages. Remember water is always the best choice. Read labels and choose foods with less added sugar. Keep in mind that dairy foods and foods with fruit will have some natural sugar. Cut the sugar in recipes by 1/3 to 1/2. Boost the flavor with extracts like almond, vanilla, or orange. Or add spices such as cinnamon or nutmeg. Step 4. Eatmore fiber Eat fresh fruits and vegetables every day. Boost your diet with whole grains. Go for oats, whole-grain rice, and bran. Add beans and lentils to your meals. Drink more water to match your fiber increase to help prevent constipation. [employer] last reviewed this educational content on 12/28/201619998327-0403 [employer]. [address] [place] [address]. All rights reserved. This information is not intended as a substitute for professional medical care. Always follow your healthcare professional's instructions. 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 Patient delivered baby on 08/02/2019. Patient denies any complaints at this time time. Patient reports having a bilateral tubal ligation on . Patient declines need for STD and STI testing. Patient denies current or past physical, sexual or emotional abuse. Histories OB History Para Term AB Living 8 5 4 1 3 5 SAB TAB Ectopic Multiple Live Births 3 0 0 0 5 # Outcome Date GA Lbr Jose/2nd Weight Sex Delivery Anes PTL Lv 8 08/02/19 36w0d 4 lb 0.7 oz (1.835 kg) M NORMAL SPONT Declines Y CORONA 7 Term 03/20/18 39w0d 5 lb 7 oz (2.466 kg) F VAGINAL CORONA 6 SAB 12/28/13 13w0d 5 Term 06/02/08 39w0d 08:00 5 lb (2.268 kg) M NORMAL SPONT NONE CORONA 4 SAB 02/21/06 6w0d 3 SAB 10/22/02 6w0d 2 Term 09/08/99 39w0d 08:00 6 lb (2.722 kg) M NORMAL SPONT NONE CORONA 1 Term 02/04/98 39w0d 08:00 5 lb 8.9 oz (2.52 kg) F SEC EPIDURAL N CORONA Obstetric Comments All pregnancies from same partner, including SABs. Past Medical History: Diagnosis Date Abnormal maternal glucose tolerance, antepartum 05/14/2019 Cervical high risk human papillomavirus (HPV) DNA test positive 12/08/2013 STD (sexually transmitted disease) 2002 chlamydia, treated Thrombocytopenia 03/21/2018 Vaginal yeast infection 11/23/2015 Family History Problem Relation Age of Onset Diabetes Mother High cholesterol Father Hypertension Father Arthritis Maternal Grandmother Diabetes Maternal Grandmother Heart Maternal Grandfather Asthma NoFHx defects NoFHx Breast Cancer NoFHx Colon Cancer NoFHx Ovarian Cancer NoFHx Uterine Cancer NoFHx Cancer NoFHx Depression NoFHx Genetic NoFHx Mental retardation NoFHx Neurological NoFHx Osteoporosis NoFHx Psychiatry NoFHx Family Status Relation Name Status Mo Alive Fa Alive MGMo Alive MGFa Alive NoFHx (Not Specified) Past Surgical History: Procedure Laterality Date SECTION 02/04/1998 DILATION AND CURETTAGE (SHX) 2006 DILATION AND CURETTAGE (SHX) 2002 TUTTLE BULB PLACEMENT. OBTAIN SUPPLIES AND NOTIFY ULTRASOUND APPLICATIONS SPECIALIST WHEN READY 08/02/2019 TUBAL LIGATION N/A 08/02/2019 Surgeon: Bola See MD; Location: Labor and Delivery - [place] Social History Socioeconomic History Marital status: Spouse name: Eors Mcrae Number of children: 2 Years of education: 12 Highest education level: 11th grade Occupational History Occupation: unemployed Social Needs Financial resource strain: Not on file Food insecurity: Worry: Not on file Inability: Not on file Transportation needs: Medical: Not on file Non-medical: Not on file Tobacco Use Smoking status: Never Smoker Smokeless tobacco: Never Used Substance and Sexual Activity Alcohol use: Yes Alcohol/week: 0.0 standard drinks Comment: socially prior to Drug use: No Sexual activity: Yes Partners: Male control/protection: Surgical Comment: last sexual intercourse: 09/14/2019 Lifestyle Physical activity: Days per week: Not on file Minutes per session: Not on file Stress: Not on file Relationships Social connections: Talks on phone: Not on file Gets together: Not on file Attends anglican service: Not on file Active member of club or organization: Not on file Attends meetings of clubs or organizations: Not on file Relationship status: Not on file Intimate partner violence: Fear of current or ex partner: Not on file Emotionally abused: Not on file Physically abused: Not on file Forced sexual activity: Not on file Other Topics Concern Service Not Asked Blood Transfusions No Caffeine Concern Not Asked Occupational Exposure Not Asked Hobby Hazards Not Asked Sleep Concern Not Asked Stress Concern Not Asked Weight Concern Not Asked Special Diet Not Asked Back Care Not Asked Exercise Not Asked Bike Helmet Not Asked Seat Belt Not Asked Self-Exams Not Asked Social History Narrative Pt denies current or past physical, sexual or emotional abuse. Patient lives with , patient feels safe at home. Patient denies any cats. Social History Substance and Sexual Activity Sexual Activity Yes Partners: Male control/protection: Surgical Comment: last sexual intercourse: 09/14/2019 Labs Labs are pending. Radiology No new radiology. Allergies Yanique has No Known Allergies. Medications Yanique has a current medication list which includes the following prescription(s) : famotidine, vitamin w/fa, docusate calcium, ferrous sulfate, hydrocodone-acetaminophen, ibuprofen, ibuprofen, and metronidazole. Review of Systems Constitutional: Negative for activity change, appetite change, fatigue, unexpected weight change, weight gain and weight loss. HENT: Negative for sore throat. Eyes: Negative for visual disturbance. Respiratory: Negative for cough and shortness of breath. Breasts: Negative for discharge, mass, pain and unequal size. Cardiovascular: Negative for chest pain, palpitations and leg swelling. Gastrointestinal: Negative. Negative for abdominal pain, anal bleeding, blood in stool, constipation, diarrhea, nausea, rectal pain and vomiting. Genitourinary: Negative for bladder incontinence, dysuria, urgency, flank pain, vaginal bleeding, vaginal discharge, genital sores, vaginal pain and pelvic pain. Skin: Negative for color change and rash. Neurological: Negative. Negative for dizziness, syncope and headaches. Psychiatric/Behavioral: Negative for confusion, self-injury and sleep disturbance. The patient is not nervous/anxious. Hematological: Negative for cold intolerance and heat intolerance. Endocrine: Negative for hair loss, cold intolerance, heat intolerance, weight gain and weight loss. BP 97/67 (BP Location: Right arm, Patient Position: Sitting, BP CUFF SIZE: Adult Medium) | Pulse 64 | Temp 36.4 C (97.5 F) (Oral) | Resp 16 | Ht 5' 1" (1.549 m) | Wt 120 lb (54.4 kg) | LMP 11/23/2018 | No | BMI 22.67 kg/m Pregravid BMI: 22.3 Physical Exam Vitals reviewed. Constitutional: She is oriented to person, place, and time. She appears well- developed, well-nourished and well-groomed. She has no deformities. Neck: No tenderness and no mass. No thyroid nodules and no thyromegaly palpated. Cardiovascular: Regular rate and rhythm. No murmur auscultated. Pulmonary/Chest: Breath sounds clear to auscultation. Normal inspiratory effort. Abdominal: Abdomen is soft. No mass palpated. No tenderness present. There is no guarding. Neuro/Psychiatric: She has a normal mood and affect. She is oriented to person, place, and time. Skin: Skin normal. No lesion and no rash present. Tattoo present on right ankle, left inner wrist and back of neck. BTL incision healing well, no redness or drainage noted. Breast: Right breast exhibits no mass, no nipple discharge and no tenderness. Left breast exhibits no mass, no nipple discharge and no tenderness. Normal left breast and normal right breast Rectal: normal rectum External genitalia: Normal external genitalia appropriate for age. Normal hair distribution. No labial lesion. Vagina:Normal vagina. No lesion inspected. No abnormal vaginal discharge found. Cervix: Normal cervix. No lesion. No tenderness and no discharge present. Uterus: Uterus is normal size and non-tender. Normal uterus Adnexa: Right adnexa without tenderness or mass. Left adnexa without tenderness or mass. Normal leftadnexa and normal right adnexa Anus/perineum: Normal perineum. Assessment/Plan Rubella:Equivocal VZV:POsitive BMI:22.67 Td:2019 Pap Smear:2018, WNL Gardasil:N/A Mammogram:N/A Guaiac:N/A Colonoscopy:N/A Well woman exam (primary encounter diagnosis) Comment: Routine WWE Plan: Denies zika virus risk, signs and symptoms such as fever,rash,joint pain, conjunctivitis (red eyes), muscle pain, headaches; outside [place] travel to areas affected by zika, and FOB exposure to zika.Educated on use of mosquito repellent. Encounter for surveillance of contraceptives, unspecified contraceptive History of bilateral tubal ligation Comment: patient happy with method Plan: patient desires to continue. Return to clinic in 1 year for WWE or PRN. Discussed treatment options. Medications as ordered. Reviewed patient instructions and provided printed copy. This visit did not involve counseling and coordination that comprised more than 50% of the visit time. SACHA Waller 09/15/2019 10:42 AM Sonal Nolasco RN - 09/15/2019 9:30 AM CST38 year old presented to the clinic for WWE. 1) Previous BCM: BTL 2) Desired BCM: BTL 3) LMP: Recently 4) Last [place]: 09/14/2019 without protection 5) Last Pap: 10/22/2017 Results: Neg HPV: neg 6) Tdap in last 10 years? yes 7) C/O none 8) Patient denies history of physical, emotional, or sexual abuse. Patient states she currently feels safe at home. documented in this encounter Plan of Treatment Health Maintenance Due Date Last Done Comments INFLUENZA VACCINE (#1) 2020 Postponed from 03/30/2019 (Refused) PAP SMEAR 10/22/2020 10/22/2017, 11/23/2015, 11/28/2013 DTaP,Tdap,and Td Vaccines (4 06/10/2029 06/10/2019, - Td) 01/02/2018, 11/23/2015 PNEUMOCOCCAL 0-64 YEARS Aged Out No longer eligible based COMBINED SERIES on patient's age to complete this topic documented as of this encounter Results Not on filedocumented in this encounter Visit Diagnoses Diagnosis Well woman exam - Primary Routine general medical examination at a health care facility Encounter for surveillance of contraceptives, unspecified contraceptive History of bilateral tubal ligation documented in this encounter Insurance Payer Benefit Plan / Subscriber ID Effective Dates Phone Address Type Group [facility] xxxxxxxxx 2017-Present Medicaid COMM PLAN - MANAGED MEDICAID documented as of this encounter Advance Directives Name Relationship Healthcare Agent Communication Relationship Eros Mcrae Spouse Primary healthcare agent Mackenzie Mcrae Child Second alternate healthcare [phone] agent (Mobile) Jazmine Lancaster Other [facility] healthcare [phone] agent (Home)
--- OUTSIDE RECORDS SUMMARY | 2019-09-19 07:36 | XMS REPORT | Summary of Care ---
:1980 Author Organization [facility] Address [address] [place] [address] Care Team Providers Name Role Phone Kristin Ghotra Insurance Hmo Cordelia Fregoso Primary Care Provider Reason for Visit Reason Comments Care 3WK (Routine) Status Reason Specialty Diagnoses / Referred By Referred To Procedures Contact Contact New Request OB Satellites Diagnoses (vaginal after ) Yanira Page, Procedures DISCHARGE FOLLOW-UP: [facility] [address] [place] [address] Encounter Details Date Type Department Care Team Description 08/25/2019 Routine [facility]- [place], Routine Visit ISMAEL Hall follow-up (Primary [address] Dx) [facility] [address] [facility] [phone] [place] [phone] Allergies No Known Allergiesdocumented as of this encounter (statuses as of 08/25/2019) Medications Medication Sig Dispensed Refills Start Date [...] as of this encounter (statuses as of 08/25/2019) Active Problems Problem Noted Date Routine follow-up 08/25/2019 S/P tubal ligation 08/04/2019 Rubella non-immune status, antepartum 10/23/2017 Overview: Address documented as of this encounter (statuses as of 08/25/2019) Resolved Problems Problem Noted Date Resolved Date Normal spontaneous vaginal delivery 08/03/2019 08/04/2019 Labor [...] trimester 12/26/2013 08/25/2019 Overview: ICD10 Diagnosis Term 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 +HR HPV. Repeat screening in 1 year. Rubella non-immune status, antepartum 12/01/2013 11/23/2015 Other malaise and fatigue 11/28/2013 11/23/2015 Supervision of normal 11/28/2013 12/26/2013 documented as of this encounter (statuses as of 08/25/2019) Immunizations Name Administration Dates Next Due MMR [...] Sign Reading Time Taken Comments Blood Pressure 110/79 08/25/2019 9:28 AM SHIP WASHER Pulse 72 08/25/2019 9:28 AM SHIP WASHER Temperature 36.5 C (97.7 F) 08/25/2019 9:28 AM SHIP WASHER Respiratory Rate 16 08/25/2019 9:28 AM SHIP WASHER Oxygen Saturation - - Inhaled Oxygen Concentration - - Weight 56.9 kg (125 lb 6 oz) 08/25/2019 9:28 AM SHIP WASHER Height 154.9 cm (5' 1") 08/25/2019 9:28 AM SHIP WASHER Body Mass Index 23.69 08/25/2019 9:28 AM SHIP WASHER documented in this encounter Progress Notes Hue Ellis, CNP - 08/25/2019 9:15 AM CST Chief complaint: Chief Complaint Patient presents with Care 3WK HPI The patient is here for a routine PP visit. She has no complaints today. She states that she is formula feeding her infant, is bonding well, and coping well with less sleep. She reports that she has no pain, small lochia, and denies all s/s of PP depression. She received tubal for PP contraception. Patient was teary eyed on todays visit, reporting that she is not pleased with her tubal ligation site, stating she feels as though her incision looks like a second belly button. She reports feeling insecure around her . Histories OB History Para Term AB Living [...] TUTTLE BULB PLACEMENT. OBTAIN SUPPLIES AND NOTIFY BOOT REPAIRER WHEN READY 08/02/2019 TUBAL LIGATION N/A 08/02/2019 Surgeon: Bola See MD; Location: Labor and Delivery - [place] Social History Socioeconomic History Marital status: Spouse name: Eros Mcrae Number of children: 2 Years of [...] No Sexual activity: Yes Partners: Male control/protection: None Comment: last sexual intercourse: 04/16/2019 Lifestyle Physical activity: Days per week: Not on file Minutes per session: Not on file Stress: Not on file Relationships Social connections: Talks on phone: Not on file Gets together: Not on file Attends evangelical service: Not on file Active member of [...] Activity Sexual Activity Yes Partners: Male control/protection: None Comment: last sexual intercourse: 04/16/2019 Labs No new labs and Admission on 07/31/2019, Discharged on 08/04/2019 Component Date Value ABO & RH 07/31/2019 B POSITIVE IAT 07/31/2019 Negative APPEARANCE 08/01/2019 Clear COLOR 08/01/2019 Straw* PH 08/01/2019 7.0 SP GRAVITY 08/01/2019 1.012 GLU U QUAL 08/01/2019 Normal BLOOD 08/01/2019 Negative KETONES 08/01/2019 Negative PROTEIN 08/01/2019 Negative UROBILIN 08/01/2019 Normal BILIRUBIN 08/01/2019 Negative NITRITE 08/01/2019 Negative LEUK JOSE 08/01/2019 Negative RBC/HPF 08/01/2019 1 WBC/HPF 08/01/2019 <1 BACTERIA 08/01/2019 Negative MUCOUS 08/01/2019 Slight* SQ EPITH 08/01/2019 1 ASCORBIC ACID 08/01/2019 Negative URINE CULTURE 08/01/2019 > 100,000 CFU/mL mixed aerobic organisms - suggests endogenous microbial contamination C. trachomatis Nucleic A* 07/31/2019 Negative N. gonorrhoeae Nucleic A* 07/31/2019 Negative Group B Streptococcus by* 07/31/2019 Negative Syphilis IgG/IgM 08/02/2019 Non-reactive HIV 1/2 Ag-Ab with Reflex 08/02/2019 Negative HIV Semi-quantitative 08/02/2019 0.07 HBsAg 08/02/2019 Negative HBsAg Semi-Quantitative 08/02/2019 0.06 VENOUS BASE EXCESS, CORD 08/02/2019 -2.3 VENOUS PH, CORD 08/02/2019 7.42 VENOUS PC02, CORD 08/02/2019 34 VENOUS PO2, CORD 08/02/2019 24 VENOUS BICARBONATE, CORD 08/02/2019 21 Case Report 08/03/2019 Value:Surgical Pathology Case: [id number] Authorizing Provider: Bola See MD Collected: 2019 0056 Ordering Location: Labor and Delivery ([facility]) Received: 2019 0847 Pathologist: Deshaun Jensen MD Specimens: A) - FALLOPIAN TUBE, LEFT B) - FALLOPIAN TUBE, RIGHT Final Diagnosis 08/03/2019 Value:This result contains rich text formatting which cannot be displayed here. Clinical Information 08/03/2019 Value:38yo s/p MPDPS Gross Description 08/03/2019 Value:This result contains rich text formatting which cannot be displayed here. RHIG CANDIDATE? 07/31/2019 No- see comment WBC 08/03/2019 17.66* RBC 08/03/2019 4.12 HGB 08/03/2019 11.3* HCT 08/03/2019 34.5* MCV 08/03/2019 83.7 MCH 08/03/2019 27.4 MCHC 08/03/2019 32.8 RDW-SD 08/03/2019 40.0 RDW-CV 08/03/2019 13.3 PLT 08/03/2019 161* MPV 08/03/2019 12.1 NRBC/100 WBC 08/03/2019 0.3 NRBC x10^3 08/03/2019 0.06 GRAN MAT (NEUT) % 08/03/2019 80.3 IMM GRAN % 08/03/2019 1.50 LYMPH % 08/03/2019 10.4 MONO % 08/03/2019 7.7 EOS % 08/03/2019 0.0 BASO % 08/03/2019 0.1 GRAN MAT x10^3(ANC) 08/03/2019 14.19* IMM GRAN x10^3 08/03/2019 0.26* LYMPH x10^3 08/03/2019 1.83 MONO x10^3 08/03/2019 1.36* EOS x10^3 08/03/2019 <0.03* BASO x10^3 08/03/2019 <0.03 Routine Visit on 07/31/2019 Component Date Value POCT U PROT 07/31/2019 trace POCT U GLU 07/31/2019 neg Routine Visit on 07/28/2019 Component Date Value POCT PH U 07/28/2019 . POCT U LEUK EST 07/28/2019 . POCT U NIT 07/28/2019 . POCT U PROT 07/28/2019 Trace POCT U GLU 07/28/2019 Neg POCT U KETONE 07/28/2019 . POCT U BLD 07/28/2019 .. Group B Streptococcus by* 07/28/2019 Negative WBC 07/28/2019 7.63 RBC 07/28/2019 4.42 HGB 07/28/2019 12.1 HCT 07/28/2019 37.6 MCV 07/28/2019 85.1 MCH 07/28/2019 27.4 MCHC 07/28/2019 32.2 RDW-SD 07/28/2019 40.7 RDW-CV 07/28/2019 13.2 PLT 07/28/2019 166 MPV 07/28/2019 12.5 NRBC/100 WBC 07/28/2019 0.0 NRBC x10^3 07/28/2019 <0.01 GRAN MAT (NEUT) % 07/28/2019 69.1 IMM GRAN % 07/28/2019 0.80 LYMPH % 07/28/2019 22.9 MONO % 07/28/2019 6.0 EOS % 07/28/2019 0.8 BASO % 07/28/2019 0.4 GRAN MAT x10^3(ANC) 07/28/2019 5.27 IMM GRAN x10^3 07/28/2019 0.06 LYMPH x10^3 07/28/2019 1.75 MONO x10^3 07/28/2019 0.46 EOS x10^3 07/28/2019 0.06 BASO x10^3 07/28/2019 0.03 Routine Visit on 07/08/2019 Component Date Value POCT PH U 07/08/2019 7 POCT U LEUK EST 07/08/2019 tr POCT U NIT 07/08/2019 neg POCT U PROT 07/08/2019 neg POCT U GLU 07/08/2019 neg POCT U KETONE 07/08/2019 neg POCT U BLD 07/08/2019 neg HIV 1/2 Ag-Ab with Reflex 07/08/2019 Negative HIV Semi-quantitative 07/08/2019 0.07 Syphilis IgG/IgM 07/08/2019 Non-reactive Routine Visit on 06/24/2019 Component Date Value POCT U PROT 06/24/2019 trace POCT U GLU 06/24/2019 negative HIV 1/2 Ag-Ab with Reflex 06/24/2019 Negative HIV Semi-quantitative 06/24/2019 0.11 Syphilis IgG/IgM 06/24/2019 Non-reactive Routine Visit on 06/10/2019 Component Date Value POCT PH U 06/10/2019 7 POCT U LEUK EST 06/10/2019 neg POCT U NIT 06/10/2019 neg POCT U PROT 06/10/2019 tr POCT U GLU 06/10/2019 neg POCT U KETONE 06/10/2019 neg POCT U BLD 06/10/2019 neg Routine Visit on 05/28/2019 Component Date Value POCT U PROT 05/28/2019 trace POCT U GLU 05/28/2019 negative Radiology No new radiology. Allergies Yanique has No Known Allergies. Medications Yanique has a current medication list which includes the following prescription(s) : ibuprofen, vitamin w/fa, docusate calcium, ferrous sulfate, hydrocodone-acetaminophen, ibuprofen, and metronidazole. Review of Systems Constitutional: Negative. HENT: Negative. Eyes: Negative. Respiratory: Negative. Breasts: Negative. Cardiovascular: Negative. Gastrointestinal: Negative. Genitourinary: Positive for vaginal bleeding. Musculoskeletal: Negative. Skin: Negative. Neurological: Negative. Psychiatric/Behavioral: Negative. Endocrine: Endocrine negative BP 110/79 (BP Location: Right arm, Patient Position: Sitting, BP CUFF SIZE: Adult Medium) | Pulse 72 | Temp 36.5 C (97.7 F) (Oral) | Resp 16 | Ht 5 ' 1" (1.549 m) | Wt 125 lb 6 oz (56.9 kg) | LMP 11/23/2018 | BMI 23.69 kg/m Pregravid BMI: 22.3 Physical Exam Vitals reviewed. Constitutional: She is oriented to person, place, and time. She appears well- developed, well-nourished and well-groomed. Cardiovascular: Regular rate and rhythm. No peripheral edema present. Pulmonary/Chest: Normal inspiratory effort. Abdominal: Abdomen is soft. Normal appearance. No mass palpated. No tenderness present. There is no hepatosplenomegaly, splenomegaly or hepatomegaly. There is no rigidity and no guarding. No hernia palpated or inspected. Fundus firm Neuro/Psychiatric: She has a normal mood and affect. She is oriented to person, place, and time. Skin: Skin normal. Tubal ligation site well approximated, no redness, drainage noted at site Breast: Right breast exhibits no mass, no nipple discharge and no tenderness. Left breast exhibits no mass, no nipple discharge and no tenderness. Breasts are symmetrical. Normal left breast and normalright breast Rectal: Rectal exam with normal anal tone. No mass, no external hemorrhoid and no internal hemorrhoid palpated or inspected. normal rectum External genitalia: Normal external genitalia appropriate for age. Normal hair distribution. No labial lesion. Vagina:No lesion inspected. Normal estrogen effect. Normal support. Vaginal discharge found. Lochia WNL, small rubra Uterus: Uterus is normal size, normal contour, normal position and non-tender. Involution WNL Normal uterus Assessment/Plan Return to clinic in 3 weeks. Routine follow-up (primary encounter diagnosis) Comment: routine Plan: return in 3 weeks This visit did not involve counseling and coordination that comprised more than 50% of the visit time. ISMAEL Almeida 08/25/2019 10:31 AM Christi Carbajal RN - 08/25/2019 9:15 AM CSTPt in clinic today for 3 wk pp visit. 1) Delivery method Vaginal 2) Patient delivered on 08/02/2019 at [facility] 3) Patient is currently bottlefeeding 4) Desired BCM: BTL 5) Patient experiencing pp depression, Pp depression screening, a 16. Provider notified. 5. Pt complains of left sided incision pain 4/10, patient complains of drainage from site. Pt denies any vaginal bleeding. CHRISTI JULIO RN 08/25/2019 9:38 AM documented in this encounter Plan of Treatment Date Type Specialty Care Team Description 09/15/2019 Office Visit OB Satellites Cordelia Fregoso, RN SECURITY [address] [place], [place] [address] Health Maintenance Due Date Last Done Comments [...] filedocumented in this encounter Visit Diagnoses Diagnosis Routine follow-up - Primary documented in this encounter Insurance Payer Benefit Plan / Subscriber ID Effective Dates Phone Address Type Group [facility] xxxxxxxxx 2017-Present Medicaid COMM PLAN - MANAGED MEDICAID documented as of this encounter Advance Directives Name Relationship Healthcare Agent Communication Relationship Eros Sosan Spouse Primary healthcare agent Mackenzie Mcrae Child [facility] healthcare [phone] agent (Mobile) Jazmine Lancaster Other [facility] [phone] agent (Home)
--- OUTSIDE RECORDS SUMMARY | 2019-09-19 07:37 | XMS REPORT | Summary of Care ---
:1980 Author Organization [facility] Address [address] [place] [address] Care Team Providers Name Role Phone Kristin Ghotra Insurance Hmo Cordelia Fregoso CORD TIRE BUILDER Primary Care Provider Reason for Visit Reason Comments Well Woman Exam Encounter Details Date Type Department Care Team Description 09/15/2019 Office Visit [facility]- Cordelia Fregoso Well woman exam (Primary Dx); S[facility] [place] Encounter for surveillance of contraceptives, unspecified contraceptive; [address] [place] [address] History of bilateral tubal ligation [place] [address] [place] [phone] Allergies No Known Allergiesdocumented as of this [...] trimester 12/26/2013 08/25/2019 Overview: ICD10 Diagnosis Term Powder Worker 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 Cervical high risk human papillomavirus (HPV) [...] Comments Blood Pressure 97/67 09/15/2019 9:53 AM TELEVISION PROGRAM DIRECTOR Pulse 64 09/15/2019 9:53 AM TELEVISION PROGRAM DIRECTOR Temperature 36.4 C (97.5 F) 09/15/2019 9:53 AM TELEVISION PROGRAM DIRECTOR Respiratory Rate 16 09/15/2019 9:53 AM TELEVISION PROGRAM DIRECTOR Oxygen Saturation - - Inhaled Oxygen Concentration - - Weight 54.4 kg (120 lb) 09/15/2019 9:53 AM TELEVISION PROGRAM DIRECTOR Height 154.9 cm (5' 1") 09/15/2019 9:53 AM TELEVISION PROGRAM DIRECTOR Body Mass Index 22.67 09/15/2019 9:53 AM TELEVISION PROGRAM DIRECTOR documented in this encounter Patient Instructions Patient [...] breast self-examination (BSE). These experts include the [place] [employer] and the [place] [employer] of Obstetricians and Gynecologists. Some experts [...] benign. This means they are not cancer. [employer] last reviewed this educational content on 02/27/201719991254-3055 [facility]. [address] [place] [address]. All rights reserved. This information is not intended as a substitute for professional medical care. Always follow your healthcare professional's instructions. Clinical Breast Exam Many health organizations recommend a yearly clinical breast exam. This exam may be done by a wire roller, family healthcare provider, nurse practitioner, nurse logging operations inspector, or specially trained nurse. Yearly breast exams [...] Guidelines for having clinical breast exams The [place] [employer] Obst[employer]ians and Gynecologists recommends that [...] provider about what is best for you. [employer] claudia reviewed this educational content on 02/27/201719998882-0983 [facility]. [address] [place] [address]. All rights reserved. This information is not [...] 20s.But the USPSTF does not recommend CBE. [employer] last reviewed this educational content on 04/29/201719997309-4604 [facility]. [address] [place] [address]. All rights reserved. This information is not [...] of these vaccines is right for you. [employer] last reviewed this educational content on 06/29/201819998967-4902 [facility]. [address] [place] [address]. All rights reserved. This information is not [...] allowing it to be passed to others. [employer] last reviewed this educational content on 12/28/201819992335-3572 [facility]. [address] [place] [address]. All rights reserved. This information is not [...] her child during , childbirth, and . [employer] last reviewed this educational content on 12/28/201819994188-2160 [facility]. [address] [place] [address]. All rights reserved. This information is not [...] want to have children in the future. [employer] last reviewed this educational content on 05/30/201719999160-9278 [facility]. [address] [place] [address]. All rights reserved. This information is not [...] family planning Some types of hormone methods [employer] last reviewed this educational content on 09/27/201619995402-9872 [facility]. [address] [place] [address]. All rights reserved. This information is not [...] your fiber increase to help prevent constipation. [employer] last reviewed this educational content on 12/28/201619991403-5700 [facility]. [address] [place] [address]. All rights reserved. This information is not intended as a substitute for professional medical care. Always follow your healthcare professional's instructions. VISION PROGRAM DIRECTOR documented in this encounter Progress Notes Cordelia [...] TUTTLE BULB PLACEMENT. OBTAIN SUPPLIES AND NOTIFY SENIOR PROPERTY ACCOUNTANT WHEN READY 08/02/2019 TUBAL LIGATION N/A 08/02/2019 Surgeon: Bola See MD; Location: Labor and Delivery - [place] Social History Socioeconomic History Marital status: Spouse [...] file Gets together: Not on file Attends orthodox service: Not on file Active member of [...] BCM: BTL 3) LMP: Recently 4) Last Zinc: 09/14/2019 without protection 5) Last Pap: 10/22/2017 [...] ID Effective Dates Phone Address Type Group [facility] xxxxxxxxx 2017-Present Medicaid COMM PLAN - MANAGED MEDICAID documented as of this encounter Advance Directives Name Relationship Healthcare Agent Communication Relationship Eros Mcrae Spouse Primary healthcare agent Mackenzie Mcrae Child [facility] alternate healthcare [phone] agent (Mobile) Jazmine Lancaster Other [facility] healthcare [phone] agent (Home)
[2019-09-19] MEDS ORDERED: Ringers Lactate 1,000 ML IV ONE (07:39)
[2019-09-19] MEDS ORDERED: LIDOCAINE 1% MPF 5 ML VIAL ONE (08:16)
[2019-09-19] MEDS ORDERED: propofoL 200 MG/20 ML VIAL IV ONE ×2 (08:16→08:47)
--- NOTE | 2019-09-19 08:41 | ENDO RPT ---
[address], [address] EGD PROCEDURE REPORT EXAM DATE: 09/19/2019 PATIENT NAME: Yanique Mcrae MR#: [id number] BIRTHDATE: 1980 ATTENDING: Fuentes Bishop DR STATUS: outpatient ACCOUNT AUDITOR: Charity Harrell CST, Saji Vargas [facility], and Mag Day RN INDICATIONS: The patient is a 38 yr old Female here for an EGD due to mid epigastric abdominal pain, dyspepsia, and History of H.Pylori PROCEDURE PERFORMED: EGD with biopsy for H. pylori MEDICATIONS: Per Anesthesia. TOPICAL ANESTHETIC: none CONSENT: The patient understands the risks and benefits of the procedure and understands that these risks include, but are not limited to: sedation, allergic reaction, infection, perforation and/or bleeding. Alternative means of evaluation and treatment include, among others: physical exam, x-rays, and/or surgical intervention. The patient elects to proceed with this endoscopic procedure. DESCRIPTION OF PROCEDURE: During intra-op preparation period all mechanical medical equipment was checked for proper function. Hand hygiene and appropriate measures for infection prevention was taken. Procedure, possible complications, and alternatives including but not limited to the possibility of bleeding, perforation, tear, infection, sepsis, need for surgery, need for blood transfusion, and anesthesia related complications were explained to the patient. After the risks, benefits and alternatives of the procedure were thoroughly explained, Informed consent was verified, confirmed and timeout was successfully executed by the treatment team. The patient was placed in the left lateral position. The patient was anesthetized with topical anesthesia. Through the anesthetized oropharyngeal area, the scope was passed without any difficulty. The Pentax [id number] ([id number]) endoscope was introduced through the mouth and advanced to the second portion of the duodenum. Retroflexed views revealed a small hiatal hernia. The gastroscope was then slowly withdrawn and removed. Mild gastritis was found at the pylorus. A biopsy for H. pylori was taken. A small hiatal hernia was found ADVERSE EVENTS: There were no complications. IMPRESSIONS: 1. Mild gastritis was found at the pylorus 2. A small hiatal hernia was found RECOMMENDATIONS: 1. anti-reflux regimen 2. await biopsy results 3. follow-up: office 2 week(s) 4. avoid NSAIDS 5. follow-up of helicobacter pylori status, treat if indicated REPEAT EXAM: Fuentes Bishop DR eSigned: Fuentes Bishop DR 09/19/2019 8:41 AM cc: CPT CODES: ICD9 CODES: PATIENT NAME: Yanique McraePaulette MR#: [id number]
[2019-09-19 08:57] VITALS: TEMP 97.8
[2019-09-19 09:16] VITALS: BP 116/61; O2SAT 99
== END 2019-09-19 09:20 | disposition home or self-care (01) ==
LOC: OR 07:31
PROVIDERS: ATTEND Surgery
PROC: 0DB78ZX Excision of Stomach, Pylorus, Via Natural or Artificial Opening Endoscopic, Diagnostic (ICD-10-PCS; 2019-09-19)
PROC: 0DB98ZX Excision of Duodenum, Via Natural or Artificial Opening Endoscopic, Diagnostic (ICD-10-PCS; principal; 2019-09-19 08:15)
DX: K29.50 Unspecified chronic gastritis without bleeding (principal); K29.80 Duodenitis without bleeding; K44.9 Diaphragmatic hernia without obstruction or gangrene
CPT/HCPCS: 88312; 88305; 43239; J2704 ×2; J7120

== ENCOUNTER 2022-01-02 11:40 | Observation (INO) | payer OTHER ==
--- OUTSIDE RECORDS SUMMARY | 2022-01-02 11:45 | XMS REPORT | Continuity of Care Document ---
:1980 Author Organization [facility] t Address [address] [place] [address] Care Team Providers Name Role Phone Uvaldo Greco DO Attending Clinician Bret Taylor Attending Clinician Bret SCHOFIELD Attending Clinician Unavailable Rhonda GUEVARA C Attending Clinician Payers Payer Name Policy Type Policy Number Effective Date Expiration Date S ource Problems Condition Condition Condition Status Onset Resolution Last Treating Co mments Source Name Details Category Date Date Treatment Clinician Date Routine Routine Disease Active Univers 08-25 [place] S/P tubal S/P tubal Disease Active Uni vers ligation ligation -06 ity of 00:00: [place] 00 [facility] Branch Labor and Labor and Disease Active Uni vers delivery, delivery, 07-31 [place] indication [place] for care for care 00 Medica l Branch 35 weeks 35 weeks Disease Active Unive rs gestation gestation - ity of of of 00:00: [place] 00 [facility] IUGR IUGR Disease Active 2018-07 Univers (intrauter (intrauter 08-24 it y of ine growth ine [place] restrict[place] restrictio 00 Me dical n) n) Branch affecting affecting care of care of mother, mother, third third trimester, trimester, fetus 1 fetus 1 Disease Active Univers (vaginal (vaginal 8-23 ity of 00:00: [place] after after 00 Medical ) ) Bran ch Rubella Rubella Disease Active Overview: Univ ers non-immune non-immune 10-23 Address i ty of status, status, 00:00: [place] antepartum antepartum [facility] Previous Previous Disease Active Unive rs 10-22 ity of delivery delivery 00:00: [place] affecting affecting 00 Medi jefry , , Br anch antepartum antepartum Multiparit Multiparit Disease Active U nivers y y 10-22 ity of 00:00: [place] 00 Medical Branch AMA AMA Disease Active Univers (advanced (advanced 10-22 ity of maternal maternal 00:00: [place] age) age) 00 Medical multigravi multigravi Br anch da 35+, da 35+, second second trimester trimester Supervisio Supervisio Disease Active Overview : Univers n of high n of high 5-30 ICD10 ity of risk risk 00:00: Diagnosis [place] 00 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 Utility Allergies, Adverse Reactions, Alerts Allergy Allergy Status Severity Reaction(s) Onset Inactive Treating Comm ents Source Name Type Date Date Clinician NO KNOWN Drug Active Univers ALLERGIE Class ity of S [facility] Social History Social Habit Start Date Stop Date Quantity Comments Source Alcohol intake 2019-09-15 2019-09-15 Current drinker Unive rsity of 00:00:00 00:00:00 of alcohol [facility] (finding) [place] Tobacco use and 2019-09-15 2019-09-15 Never used Universit y of exposure 00:00:00 00:00:00 [facility] History SDOH 2019-08-01 2019-08-01 11 University o f Education 00:00:00 00:00:00 [facility] Alcohol Comment 2013-11-28 2013-11-28 socially prior to Un iversity of 00:00:00 00:00:00 [facility] Sex [birth year] At [birth year] Universit y of 00:00:00 00:00:00 [facility] Smoking Status Start Date Stop Date Source Never smoker [facility] Medications Ordered Filled Start Stop Current Ordering Indication Dosage Frequency Signature Comments Components Source Medication Medication Date Date Medication? Clinician (SIG) Name Name famotidine Yes 20mg Take 20 mg U nivers (PEPCID) 20 2-17 by mouth 2 it y of mg tablet 16:06: (two) [place] 38 times Medical daily. Branch famotidine 2020-0 Yes 20mg Take 20 mg U nivers (PEPCID) 20 2-17 by mouth 2 it y of mg tablet 16:06: (two) [place] 38 times Medical daily. Branch famotidine 2020-0 Yes 20mg Take 20 mg U nivers (PEPCID) 20 2-17 by mouth 2 it y of mg tablet 16:06: (two) [place] 38 times Medical daily. Branch ibuprofen 2020-0 Yes [id number] 800mg Take 1 Univers 800 mg 1-06 tablet by ity of tablet 00:00: mouth [place] 00 every 6 Medical (six) Branch hours as needed for Pain (scale 4-6). HYDROcodone 2020-0 Yes [id number] 1{tbl} Take 1 Univers -acetaminop 1-06 tablet by ity of hen 5-325 00:00: mouth [place] mg tablet 00 every 6 Medical (six) Branch hours as needed for Pain (scale 4-6). 2020-0 Yes [id number] 1{tbl} Take 1 Univers vitamin 1-06 tablet by ity of w/FA tablet 00:00: mouth [place] 00 daily. Medical Branch docusate 2020-0 Yes [id number] 240mg Take 1 U nivers calcium 240 1-06 capsule by it y of mg capsule 00:00: mouth once [place] 00 daily as Medical needed for Branch Constipati on. ferrous 2020-0 Yes [id number] 325mg Take 1 Un everardo sulfate 325 1-06 tablet by ity of mg (65 mg 00:00: mouth 2 [place] iron) 00 (two) Medical tablet times Branch daily. ibuprofen 2020-0 Yes [id number] 600mg Take 1 Univers 600 mg 1-06 tablet by ity of tablet 00:00: mouth [place] 00 every 6 Medical (six) Branch hours as needed (Pain). Take with food or milk. metroNIDAZO 2020-0 Yes [id number] 500mg Take 1 Univers LE (FLAGYL) 1-06 tablet by ity of 500 mg 00:00: mouth 2 [place] tablet 00 (two) Medical times Branch daily. ibuprofen 2020-0 Yes [id number] 800mg Take 1 Univers 800 mg 1-06 tablet by ity of tablet 00:00: mouth [place] 00 every 6 Medical (six) Branch hours as needed for Pain (scale 4-6). HYDROcodone 2020-0 Yes [id number] 1{tbl} Take 1 Univers -acetaminop 1-06 tablet by ity of hen 5-325 00:00: mouth [place] mg tablet 00 every 6 Medical (six) Branch hours as needed for Pain (scale 4-6). 2020-0 Yes [id number] 1{tbl} Take 1 Univers vitamin 1-06 tablet by ity of w/FA tablet 00:00: mouth [place] 00 daily. Medical Branch docusate 2020-0 Yes [id number] 240mg Take 1 U nivers calcium 240 1-06 capsule by it y of mg capsule 00:00: mouth once [place] 00 daily as Medical needed for Branch Constipati on. ferrous 2020-0 Yes [id number] 325mg Take 1 Un everardo sulfate 325 1-06 tablet by ity of mg (65 mg 00:00: mouth 2 [place] iron) 00 (two) Medical tablet times Branch daily. ibuprofen 2020-0 Yes [id number] 600mg Take 1 Univers 600 mg 1-06 tablet by ity of tablet 00:00: mouth [place] 00 every 6 Medical (six) Branch hours as needed (Pain). Take with food or milk. metroNIDAZO 2020-0 Yes [id number] 500mg Take 1 Univers LE (FLAGYL) 1-06 tablet by ity of 500 mg 00:00: mouth 2 [place] tablet 00 (two) Medical times Branch daily. ibuprofen 2020-0 Yes [id number] 800mg Take 1 Univers 800 mg 1-06 tablet by ity of tablet 00:00: mouth [place] 00 every 6 Medical (six) Branch hours as needed for Pain (scale 4-6). HYDROcodone 2020-0 Yes [id number] 1{tbl} Take 1 Univers -acetaminop 1-06 tablet by ity of hen 5-325 00:00: mouth [place] mg tablet 00 every 6 Medical (six) Branch hours as needed for Pain (scale 4-6). 2020-0 Yes [id number] 1{tbl} Take 1 Univers vitamin 1-06 tablet by ity of w/FA tablet 00:00: mouth [place] 00 daily. Medical Branch docusate 2020-0 Yes [id number] 240mg Take 1 U nivers calcium 240 1-06 capsule by it y of mg capsule 00:00: mouth once [place] 00 daily as Medical needed for Branch Constipati on. ferrous 2020-0 Yes [id number] 325mg Take 1 Un everardo sulfate 325 1-06 tablet by ity of mg (65 mg 00:00: mouth 2 [place] iron) 00 (two) Medical tablet times Branch daily. ibuprofen 2020-0 Yes [id number] 600mg Take 1 Univers 600 mg 1-06 tablet by ity of tablet 00:00: mouth [place] 00 every 6 Medical (six) Branch hours as needed (Pain). Take with food or milk. metroNIDAZO 2020-0 Yes [id number] 500mg Take 1 Univers LE (FLAGYL) 1-06 tablet by ity of 500 mg 00:00: mouth 2 [place] tablet 00 (two) Medical times Branch daily. ibuprofen 2020-0 Yes [id number] 800mg Take 1 Univers 800 mg 1-06 tablet by ity of tablet 00:00: mouth [place] 00 every 6 Medical (six) Branch hours as needed for Pain (scale 4-6). HYDROcodone 2020-0 Yes [id number] 1{tbl} Take 1 Univers -acetaminop 1-06 tablet by ity of hen 5-325 00:00: mouth [place] mg tablet 00 every 6 Medical (six) Branch hours as needed for Pain (scale 4-6). 2020-0 Yes [id number] 1{tbl} Take 1 Univers vitamin 1-06 tablet by ity of w/FA tablet 00:00: mouth [place] 00 daily. Medical Branch docusate 2020-0 Yes [id number] 240mg Take 1 U nivers calcium 240 1-06 capsule by it y of mg capsule 00:00: mouth once [place] 00 daily as Medical needed for Branch Constipati on. ferrous 2020-0 Yes [id number] 325mg Take 1 Un everrado sulfate 325 1-06 tablet by ity of mg (65 mg 00:00: mouth 2 [place] iron) 00 (two) Medical tablet times Branch daily. ibuprofen 2020-0 Yes [id number] 600mg Take 1 Univers 600 mg 1-06 tablet by ity of tablet 00:00: mouth [place] 00 every 6 Medical (six) Branch hours as needed (Pain). Take with food or milk. metroNIDAZO 2020-0 Yes [id number] 500mg Take 1 Univers LE (FLAGYL) 1-06 tablet by ity of 500 mg 00:00: mouth 2 [place] tablet 00 (two) Medical times Branch daily. ibuprofen 2020-0 Yes [id number] 800mg Take 1 Univers 800 mg 1-06 tablet by ity of tablet 00:00: mouth [place] 00 every 6 Medical (six) Branch hours as needed for Pain (scale 4-6). HYDROcodone 2020-0 Yes [id number] 1{tbl} Take 1 Univers -acetaminop 1-06 tablet by ity of hen 5-325 00:00: mouth [place] mg tablet 00 every 6 Medical (six) Branch hours as needed for Pain (scale 4-6). 2020-0 Yes [id number] 1{tbl} Take 1 Univers vitamin 1-06 tablet by ity of w/FA tablet 00:00: mouth [place] 00 daily. Medical Branch docusate 2020-0 Yes [id number] 240mg Take 1 U nivers calcium 240 1-06 capsule by it y of mg capsule 00:00: mouth once [place] 00 daily as Medical needed for Branch Constipati on. ferrous 2020-0 Yes [id number] 325mg Take 1 Un everardo sulfate 325 1-06 tablet by ity of mg (65 mg 00:00: mouth 2 [place] iron) 00 (two) Medical tablet times Branch daily. ibuprofen 2020-0 Yes [id number] 600mg Take 1 Univers 600 mg 1-06 tablet by ity of tablet 00:00: mouth [place] 00 every 6 Medical (six) Branch hours as needed (Pain). Take with food or milk. metroNIDAZO 2020-0 Yes [id number] 500mg Take 1 Univers LE (FLAGYL) 1-06 tablet by ity of 500 mg 00:00: mouth 2 [place] tablet 00 (two) Medical times Branch daily. Immunizations Ordered Filled Immunization Date Status Comments [facility] e Immunization Name Name TDAP 2019-06-10 Completed University of 00:00:00 [facility] Tdap 2019-06-10 Completed University of 00:00:00 [facility] Tdap 2019-06-10 Completed University of 00:00:00 [facility] Tdap 2019-06-10 Completed University of 00:00:00 [facility] Tdap 2019-06-10 Completed University of 00:00:00 [facility] MMR 2018-03-21 Completed University of 00:00:00 [facility] MMR 2018-03-21 Completed University of 00:00:00 [facility] MMR 2018-03-21 Completed University of 00:00:00 [place] [facility] MMR 2018-03-21 Completed University of 00:00:00 [place] [facility] MMR 2018-03-21 Completed University of 00:00:00 [place] [facility] TDAP 2018-01-02 Completed University of 00:00:00 [place] [facility] Tdap 2018-01-02 Completed University of 00:00:00 [place] [facility] Tdap 2018-01-02 Completed University of 00:00:00 [place] [facility] Tdap 2018-01-02 Completed University of 00:00:00 [place] [facility] Tdap 2018-01-02 Completed University of 00:00:00 [place] [facility] TDAP 2015-11-23 Completed University of 00:00:00 [place] [facility] Tdap 2015-11-23 Completed University of 00:00:00 [place] [facility] Tdap 2015-11-23 Completed University of 00:00:00 [place] [facility] Tdap 2015-11-23 Completed University of 00:00:00 [place] [facility] Tdap 2015-11-23 Completed University of 00:00:00 [facility] Vital Signs Vital Name Observation Time Observation Value Comments Source Systolic blood 2019-09-15 15:53:00 97 mm[Hg] Univer sity of pressure [facility] Diastolic blood 2019-09-15 15:53:00 67 mm[Hg] Unive rsity [facility] Heart rate 2019-09-15 15:53:00 64 /min [facility] Body temperature 2019-09-15 15:53:00 36.39 [facility] 2019-09-15 15:53:00 16 /min [facility] Body height 2019-09-15 15:53:00 154.9 cm [facility] Body weight 2019-09-15 15:53:00 54.432 kg [facility] BMI 2019-09-15 15:53:00 22.67 kg/m2 [facility] Systolic blood 2019-08-25 15:28:00 110 mm[Hg] Univer sity of pressure [facility] Diastolic blood 2019-08-25 15:28:00 79 mm[Hg] Unive rsity of pressure [facility] Heart rate 2019-08-25 15:28:00 72 /min [facility] Body temperature 2019-08-25 15:28:00 36.5 Chastity [facility] Respiratory rate 2019-08-25 15:28:00 16 /min [facility] Body height 2019-08-25 15:28:00 154.9 cm [facility] Body weight 2019-08-25 15:28:00 56.87 kg [facility] BMI 2019-08-25 15:28:00 23.69 kg/m2 [facility] Procedures This patient has no known procedures. Encounters Start End Encounter Admission Attending Care Care Encounter Source Date/Time Date/Time Type Type Clinicians Facility Department ID 2020-10-18 2020-10-18 Patient Angus [facility] [id number] Univers 00:00:00 00:00:00 Outreach Tushar PRIMARY [id number] i ty [facility] [id number] [place] [phone] [place] [address] 2019-09-15 2019-09-[address] [facility] [id number] Univers 09:38:32 10:23:11 Visit Cordelia Queen [employer] [id number] ity of REGIONAL [id number] [place] as MATERNAL [phone] Med ical & CHILD [address] [place] [address] 2019-09-15 2019-09-15 Outpatient R CHANDU [facility] [id number] Univers 09:30:00 10:23:11 CORDELIA ity o f [facility] 2019-08-25 2019-08-25 Routine Akinkvng [facility] [id number] Univers 09:15:24 10:15:07 Hue C [employer] [id number] ity of Visit [facility] [id number] [place] as MATERNAL [phone] [facility] ical & CHILD [address] [place] [address] 2019-08-22 2019-08-22 [facility] [id number] Univers 00:00:00 00:00:00 Rosedmundo Queen [employer] [id number] ity of [facility] [id number] [place] as MATERNAL [phone] Med ical & CHILD [address] [place] [address] Results This patient has no known results.
[2022-01-02 12:21] LABS: Absolute Lymphocytes (CBC) 1.7 K/uL (0.7-4.9); Hematocrit 42.1 % (36.0-45.0); Lymphocytes % 16.1 % (15.3-44.8)
--- NOTE | 2022-01-02 12:33 | RAD REPORT ---
EXAM DESCRIPTION: US - Abdomen Exam Limited - 01/02/2022 12:10 pm CLINICAL HISTORY: upper abdomen pain COMPARISON: Abdomen Exam Limited dated 09/09/2019 FINDINGS: The gallbladder demonstrates no gallstones. No pericholecystic fluid or gallbladder wall t hickening. The common bile duct is normal measuring 4 mm. The liver demonstrates no findings of intrahepatic biliary dilatation. IMPRESSION: Unremarkable examination.
[2022-01-02 13:03] LABS: Urine Blood 1+ (Negative); Urine Glucose Negative (Negative); Urine Protein Negative (Negative); Urine Specific Gravity 1.025 (1.005-1.030); Urine pH 6.5 (5.0-7.0)
[2022-01-02 13:05] LABS: Albumin 3.9 g/dL (3.4-5.0); Bilirubin Total 0.5 mg/dL (0.2-1.0); Potassium 3.9 mmol/L (3.5-5.1); Protein, Total 7.6 g/dL (6.4-8.2)
[2022-01-02] MEDS ORDERED: NA CHLORIDE 0.9% 1,000 ML ONE (13:12)
[2022-01-02] MEDS ORDERED: ONDANSETRON 4 MG/2 ML VIAL ONE ×2 (13:12→16:42)
[2022-01-02] MEDS ORDERED: PANTOPRAZOLE 40 MG INJ ONE (13:14)
[2022-01-02 13:18] LABS: Urine Bacteria 20-50 /HPF (<20); Urine RBC <5 /HPF (NONE SEEN)
[2022-01-02 13:19] LABS: Urine Mucus 1+ /HPF (NONE SEEN)
--- NOTE | 2022-01-02 13:37 | RAD REPORT ---
EXAM DESCRIPTION: CT - Abdomen Pelvis W Contrast - 01/02/2022 1:22 pm CLINICAL HISTORY: Abdominal pain, acute, nonlocalized COMPARISON: Transvaginal OB dated 08/22/2017; TRANSVAGINAL STUDY PROBE dated 02/02/2014 TECHNIQUE: Biphasic, helical CT imaging of the abdomen and pelvis was performed following 100 ml non -ionic IV contrast. No oral contrast administered. All CT scans are performed using dose optimization technique as appropriate and may include automated exposure control or mA/KV adjustment according to patient size. FINDINGS: No suspicious findings in the lung bases. The liver, spleen, and pancreas show no suspicious findings. Gallbladder and biliary tree are also wi thout suspicious finding. Symmetric renal function is seen with no hydronephrosis or suspicious renal mass. No pyelonephritis o r acute parenchymal process. No bladder abnormalities. No adrenal abnormalities. No ovarian abnormality. Overall uterine size is within normal range. There is a 4 centimeter area of generally rounded heterogeneous hypodense attenuation in the fundal portion. This is probably a pia l fibroid as a common etiology. The endometrial mass or hydrometrocolpos cannot be excluded. Gastric han are not thickened or edematous. No duodenal abnormality seen. The appendix is abnormal. There is thickening and edema of the tip of the cecum. Base of the appendix shows thickened and roger atous han. Overall diameter of the appendix is enlarged at 12 mm with a mild stranding or edema in the periappendiceal fat. Appendix is in classic right lower quadrant location. Perforation is not eusebio pected. No free air abscess or extravasation of bowel content. No hernia, mass or bulky lymphadenopathy. No suspicious bony findings. IMPRESSION: Acute appendicitis. Perforation or other complication is not suspected. Appendix is in classic right lower quadrant location. A 4 centimeter sized area of rounded heterogeneous hypodense attenuation is seen in the fundal portio n of the uterus. May represent development of fibroids since prior imaging. An endometrial abnormali ty or hydrometrocolpos cannot be excluded. Follow-up outpatient endovaginal pelvic ultrasound could b e performed once the patient has recovered from the appendicitis.
[2022-01-02] MEDS ORDERED: PIPERACIL/TAZO 3.375 GM VIAL IV ONE (14:06)
[2022-01-02] MEDS ORDERED: NA CHLORIDE 0.9% 100 ML ONE (14:06)
[2022-01-02 14:45] LABS: Urine Specific Gravity/Preg 1.025 (1.005-1.030)
--- NOTE | 2022-01-02 14:50 | ER ---
Nurse's Notes [facility] Name: Yanique Mcrae Age: 41 yrs Sex: Female : 1980 Arrival Date: 01/02/2022 Time: 11:44 Bed 9 Private MD: Diagnosis: Unspecified acute appendicitis Presentation: 01/02 11:50 Chief complaint: Patient states: upper and pain, epigastric pain since last night. iw Coronavirus screen: At this time, the client does not indicate any symptoms associated with coronavirus-19. Ebola Screen: Patient negative for fever greater than or equal to 101.5 degrees Fahrenheit, and additional compatible Ebola Virus Disease symptoms Patient denies exposure to infectious person. Patient denies travel to an Ebola-affected area in the 21 days before illness onset. No symptoms or risks identified at this time. Initial Sepsis Screen: Does the patient meet any 2 criteria? No. Patient's initial sepsis screen is negative. Does the patient have a suspected source of infection? No. Patient's initial sepsis screen is negative. Risk Assessment: Do you want to hurt yourself or someone else? Patient reports no desire to harm self or others. Onset of symptoms was January 01, 2022. 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 Denies injuries from another. Nutritional iw screening: No deficits noted. Tuberculosis screening: No symptoms or risk factors identified. Fall Risk None identified. Assessment: 15:14 Reassessment: Patient appears in no apparent distress at this time. Patient and/or iw family updated on plan of care and expected duration. Pain level reassessed. Patient is alert, oriented x 3, equal unlabored respirations, skin warm/dry/pink. Vital Signs: 11:50 BP 102 / 69; Pulse 82; Resp 16; Temp 98.6; Pulse Ox 98% on R/A; iw ED Course: 11:44 Patient arrived in ED. as 11:51 Jarvis Waldron PA is PHCP. cp 11:51 Kirby Lugo MD is Attending Physician. cp 11:51 Triage completed. iw 11:51 Arm band placed on. iw 12:12 Abdomen Limited US In Process Unspecified. EDMS 12:14 Initial lab(s) drawn, by me, sent to lab. Inserted saline lock: 22 gauge in left em1 antecubital area, using aseptic technique. Blood collected. 12:36 Yvonne Edwards RN is Primary Nurse. iw 13:24 CT Abd/Pelvis - IV Contrast Only In Process Unspecified. EDMS 14:49 Shayne Ford MD is Hospitalizing Provider. cp Administered Medications: 13:13 Drug: NS 0.9% 1000 ml Route: IV; Rate: 1 bolus; Site: left antecubital; iw 14:15 Follow up: IV Status: Completed infusion iw 13:14 Drug: Zofran (Ondansetron) 4 mg Route: IVP; Site: left antecubital; iw 14:00 Follow up: Response: No adverse reaction iw 13:14 Drug: ProTONIX (pantoprazole) 40 mg Route: IVP; Site: left antecubital; iw 13:40 Follow up: Response: No adverse reaction iw 14:37 Drug: Zosyn (piperacillin-tazobactam) 3.375 grams Route: IVPB; Infused Over: 60 mins; iw Site: left antecubital; 15:10 Follow up: IV Status: Completed infusion iw Outcome: 14:49 Decision to Hospitalize by Provider. cp 16:05 Patient left the ED. iw Signatures: Dispatcher [employer] EDRI Marta Lancaster as Yvonne Edwards RN RN [facility] em1 Jarvis Waldron PA PA cp Corrections: (The following items were deleted from the chart) 11:52 11:50 Resp 16bpm; Pulse Ox 98% RA; Temp 98.6F; iw iw
--- NOTE | 2022-01-02 14:50 | EDPHYS ---
Physician Documentation [facility] Name: Yanique Mcrae Age: 41 yrs Sex: Female : 1980 Arrival Date: 01/02/2022 Time: 11:44 Bed 9 Private MD: ED Physician Kirby Lugo HPI: 01/02 11:52 This 41 yrs old Female presents to ER via Ambulatory with complaints of cp Abdominal Pain. 11:52 The patient presents with abdominal pain in the upper abdomen. Onset: The cp symptoms/episode began/occurred last night. 11:52 The symptoms do not radiate. cp 11:52 Associated signs and symptoms: Pertinent negatives: constipation, diarrhea, dysuria, cp fever, hematuria, vomiting. The symptoms are described as constant. Severity of pain: in the emergency department the pain is unchanged despite home interventions. 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 cp 11:55 Eyes: Negative for injury, pain, redness, and discharge. cp 11:55 ENT: Negative for drainage from ear(s), ear pain, sore throat, difficulty swallowing, difficulty handling secretions. 11:55 Cardiovascular: Negative for chest pain, palpitations. 11:55 Respiratory: Negative for cough, shortness of breath, wheezing. 11:55 Abdomen/GI: Positive for abdominal pain, anorexia, Negative for vomiting, diarrhea, constipation. 11:55 Back: Negative for pain at rest, pain with movement. 11:55 Neuro: Negative for altered mental status, headache, weakness. 11:55 All other systems are negative. Exam: 12:00 Constitutional: The patient appears in no acute distress, alert, awake, non-toxic, well cp developed, well nourished, uncomfortable. 12:00 Head/Face: Normocephalic, atraumatic. cp 12:00 Eyes: Periorbital structures: appear normal, Conjunctiva: normal, no exudate, no injection, Lids and lashes: appear normal, bilaterally. 12:00 ENT: External ear(s): are unremarkable, Nose: is normal, Mouth: Lips: moist, Oral mucosa: moist, Posterior pharynx: Airway: no evidence of obstruction, patent. 12:00 Chest/axilla: Inspection: normal. 12:00 Cardiovascular: Rate: normal, Rhythm: regular. 12:00 Respiratory: the patient does not display signs of respiratory distress, Respirations: normal, no use of accessory muscles, no retractions, labored breathing, is not present, Breath sounds: are clear throughout, no decreased breath sounds, no stridor, no wheezing. 12:00 Abdomen/GI: Inspection: abdomen appears normal, Bowel sounds: active, all quadrants, Palpation: soft, in all quadrants, moderate abdominal tenderness, in the right upper quadrant and right lower quadrant, rebound tenderness, is not appreciated, voluntary guarding, is not appreciated, involuntary guarding, is not appreciated. 12:00 Back: CVA tenderness, is absent. 12:00 Skin: no rash present. 12:00 Neuro: Orientation: to person, place \\T\\ time. Mentation: is normal, Motor: moves all fours, strength is normal, Sensation: is normal. Vital Signs: 11:50 BP 102 / 69; Pulse 82; Resp 16; Temp 98.6; Pulse Ox 98% on R/A; iw MDM: 12:00 Patient medically screened. 12:00 Differential diagnosis: appendicitis, cholecystitis, Cholelithiasis, non-specific abd cp pain, Ovarian Torsion, Pelvic Inflammatory Disease, Pyelonephritis, Ureterolithiasis, urinary tract infection. 13:44 Physician consultation: Shayne Ford MD was called at 13:44, left message on voicemail. 13:45 Data reviewed: vital signs, nurses notes, lab test result(s), radiologic studies, CT cp scan, and as a result, I will admit patient. 13:45 Counseling: I had a detailed discussion with the patient and/or guardian regarding: the cp historical points, exam findings, and any diagnostic results supporting the discharge/admit diagnosis, lab results, radiology results, the need for further work-up and treatment in the hospital. 14:41 Physician consultation: Shayne Ford MD sent text message. 01/02 11:52 Order name: CBC with Diff; Complete Time: 12:39 01/02 13:38 Interpretation: Normal except: RBC 5.10; MICHAEL% 75.9; NEUT A 8.2. cp 01/02 11:52 Order name: CMP; Complete Time: 13:37 cp 01/02 13:37 Interpretation: Normal except: AST 13; GLOB 3.7. cp 01/02 11:52 Order name: Lipase; Complete Time: 13:37 cp 01/02 11:52 Order name: Urine Microscopic Only; Complete Time: 13:37 cp 01/02 13:38 Interpretation: Normal except: UBACT 20-50. cp 01/02 13:03 Order name: Urine Dipstick-Ancillary; Complete Time: 13:37 EDMS 01/02 13:38 Interpretation: Normal except: UBLD 1+. cp 01/02 13:05 Order name: Urine --Ancillary (enter results); Complete Time: 14:52 bd 01/02 13:22 Order name: Urine Culture EDMS 01/02 13:42 Order name: COVID-19 SARS RT PCR (Document "Date of Onset" if Symptomatic) cp 01/02 15:11 Order name: Basic Metabolic Panel EDMS 01/02 15:11 Order name: Basic Metabolic Panel EDMS 01/02 15:11 Order name: CBC with Automated Diff EDMS 01/02 15:11 Order name: CBC with Automated Diff EDMS 01/02 15:11 Order name: Lipase EDMS 01/02 15:11 Order name: Lipase EDMS 01/02 11:52 Order name: Abdomen Limited US; Complete Time: 12:39 cp 01/02 13:39 Interpretation: Report reviewed. cp 01/02 11:52 Order name: IV Saline Lock; Complete Time: 12:14 cp 01/02 11:52 Order name: Labs collected and sent; Complete Time: 12:14 cp 01/02 11:52 Order name: Urine Dipstick-Ancillary (obtain specimen); Complete Time: 13:05 cp 01/02 11:52 Order name: Urine Test (obtain specimen); Complete Time: 13:05 cp 01/02 11:52 Order name: NPO; Complete Time: 13:14 cp 01/02 12:41 Order name: CT Abd/Pelvis - IV Contrast Only; Complete Time: 14:41 cp 01/02 15:11 Order name: NPO EDMS 01/02 15:11 Order name: Liver (Hepatic) Function EDMS 01/02 15:11 Order name: Liver (Hepatic) Function EDMS Administered Medications: 13:13 Drug: NS 0.9% 1000 ml Route: IV; Rate: 1 bolus; Site: left antecubital; iw 14:15 Follow up: IV Status: Completed infusion iw 13:14 Drug: Zofran (Ondansetron) 4 mg Route: IVP; Site: left antecubital; iw 14:00 Follow up: Response: No adverse reaction iw 13:14 Drug: ProTONIX (pantoprazole) 40 mg Route: IVP; Site: left antecubital; iw 13:40 Follow up: Response: No adverse reaction iw 14:37 Drug: Zosyn (piperacillin-tazobactam) 3.375 grams Route: IVPB; Infused Over: 60 mins; iw Site: left antecubital; 15:10 Follow up: IV Status: Completed infusion iw Disposition: 17:41 Co-signature as Attending Physician, Kirby Lugo MD I agree with the assessment and rn plan of care. Attestation: The patient's history, exam findings, diagnostics, and a summary of any interventions or procedures was reviewed in detail with Jarvis LIN. Disposition Summary: 01/02/22 14:49 Hospitalization Ordered Provider: Shayne Ford cp Condition: Stable cp Problem: new cp Symptoms: have improved cp Bed/Room Type: Standard cp Location: Operating Room(01/02/22 14:56) cp Room Assignment: (01/02/22 14:56) cp Hospitalization Status: Observation(01/02/22 15:09) cp Diagnosis - Unspecified acute appendicitis cp Forms: - Medication Reconciliation Form cp - SBAR form cp Signatures: Dispatcher [employer] EDMS Yvonne Edwards RN RN iw Nieto, Roman, MD MD rn Page, Corey, PA PA cp Corrections: (The following items were deleted from the chart) 13:38 13:37 Normal except. cp cp 14:56 14:49 Telemetry/MedSurg (Inpatient) cp cp 14:56 14:49 cp cp 15:09 14:49 Inpatient Admission cp cp 06 08:29 06/06 12:00 Abdomen/GI: Inspection: abdomen appears normal, Bowel sounds: active, all cp quadrants, Palpation: soft, in all quadrants, moderate abdominal tenderness, in the right lower quadrant, rebound tenderness, is not appreciated, voluntary guarding, is not appreciated, involuntary guarding, is not appreciated, cp
[2022-01-02] MEDS ORDERED: ONDANSETRON 4 MG/2 ML VIAL IV PRN (15:08)
[2022-01-02] MEDS ORDERED: MORPHINE 2 MG/ML SYR IV PRN (15:08)
[2022-01-02] MEDS ORDERED: Ringers Lactate 1,000 ML IV ONE (16:01)
[2022-01-02] MEDS ORDERED: propofoL 200 MG/20 ML VIAL IV ONE (16:23)
[2022-01-02] MEDS ORDERED: LIDOCAINE 1% MPF 5 ML VIAL ONE (16:23)
--- NOTE | 2022-01-02 16:24 | P.HP ---
Date of Service: 01/02/22 PC: This 41-year-old female presented to the emergency room with severe right lower quadrant abdominal pain for diagnosis and treatment. HPC: Patient began yesterday evening. Noticed that she was having some vague abdominal comfort and did not feel well. Throughout the night and early this morning the pain intensified, is now located in the lower portion of her abdomen. Has not had anything to eat or drink since last night. PSHx: Previous tubal ligation, PMHx: Negative Social Hx: No known allergies Sys R: No cough, wheeze, shortness of breath. No chest pain or palpitations. No urinary complaints O/E: Awake alert vital signs are stable HEENT: Within normal limits Chest: Chest movement equal bilaterally Abd: Tender with guarding in the right lower quadrant [place]: Intact Data: Slight shift in white count, CT scan correlates with clinical diagnosis of acute abdomen and appendicitis Impression: Acute abdomen with appendicitis Plan: I will take to the operating room for laparoscopic possible open appendectomy. The risks of this procedure have been discussed. The possibility of bleeding, infection, injury to bowel and surrounding structures was outlined. Scar formation, abscess formation, and other unforeseen complications were outlined. She understands and wants us to proceed.
[2022-01-02] MEDS ORDERED: FENTANYL CITR 100 MCG/2 ML ONE (16:25)
[2022-01-02] MEDS ORDERED: ROCURONIUM 50 MG/5 ML VIAL IV ONE (16:25)
[2022-01-02] MEDS ORDERED: dexAMETHasone 10 MG/ML VIAL ONE (16:42)
[2022-01-02] MEDS ORDERED: KETOROLAC 30 MG/ML INJ ONE (16:42)
[2022-01-02] MEDS ORDERED: GLYCOPYRROLATE 0.2 MG/ML SYR ONE (16:44)
[2022-01-02] MEDS ORDERED: NEOSTIGMINE 1 MG/ML -10 ML VIAL ONE (16:45)
--- NOTE | 2022-01-02 17:29 | P.OP ---
Preoperative diagnosis: Acute abdomen with appendicitis Postoperative diagnosis: The same Primary procedure: Laparoscopic appendectomy Anesthesia: General anesthesia Estimated blood loss: 17 cc Specimen: Appendix Operative Technique: Patient brought the operating room placed supine on the table. After the induction of adequate general anesthesia, there the abdomen was prepped with a DuraPrep solution, she was draped in usual aseptic manner. Attention was turned towards the patient's umbilicus. The subumbilical scar that she had from her tubal ligation was excised. This allowed us access to the subcutaneous tissue and the muscles in the midline. Gentle dissection allowed us to expose the fascia. The blunt trocar was placed down this to ensure we are down to the fascia. A pneumoperitoneum was created to approximately 12 mmHg. The cutting trocar was then used to gently enter the peritoneal cavity. The 10 mm camera was then placed down through this. We could see an acutely inflamed appendix in the right lower quadrant. The the bladder was found to be distended. Careful probing with the index finger allowed us to make an incision in the skin above the peritoneum over the bladder. A 5 mm trocar was placed. Another for 5 mm trocar was placed in the right upper quadrant. The patient was then placed into Trendelenburg and the table rolled to the left side. We could clearly visualize the appendix itself. It had a considerable retroperitoneal attachment. On grasping the appendix we could isolate the peritoneum and gently dissected off. This having been done a window was made between the appendix and the cecum itself. We tried to place the trocar above the cecum at this time however the vasculature prevented easy placement. Hence the vasculature was taken down first. This was done by using a 40 mm stapler. Placed across the mesentery of the appendix and fired. The base of the appendix was clearly seen. The reload of the stapling device allowed us to place it across the base of the appendix at its junction with the cecum. The instrument was fired. The appendix having been detached was now placed into an Endopouch, and brought out through the umbilical trocar site. At this point attention was turned back to the right lower quadrant. General irrigation allowed us to clear the area of the small amount of blood and clot in the area. This was inspected to ensure adequate hemostasis. The patient was returned to the neutral position on the OR table. The umbilical trocar site was now approximated using the Endo Close and an absorbable suture. The pneumoperitoneum was now collapsed, the trochars removed, and dao were applied to the skin. Where we had exposed the scar tissue at the umbilicus was cleared. The skin was then loosely approximated u sing dao. At the end of the procedure she was in a stable condition was sent to the recovery room. Needle sponge instrument count were correct. No drains were placed.
[2022-01-02] MEDS ORDERED: MEPERIDINE HCL 25 MG/ML SYR ONE (17:40)
[2022-01-02] MEDS ORDERED: HYDROCODONE/APAP 7.5/325 MG TAB PO PRN (17:41)
[2022-01-02 18:05] VITALS: O2SAT 99
[2022-01-02] MEDS ORDERED: HYDROCODONE/APAP 7.5/325 MG TAB ONE (18:15)
[2022-01-02] MEDS: D5 0.45 NS 1,000 ML IV SCH (19:45)
[2022-01-02 20:14] VITALS: BMI 23.8
[2022-01-03] MEDS: PIPER TAZO 3.375 GM in NA CHLORIDE 0.9% 100 ML IV SCH ×2 (00:44→08:27)
[2022-01-03 03:49] LABS: Absolute Lymphocytes (CBC) 0.7 K/uL (0.7-4.9); Hematocrit 36.9 % (36.0-45.0); Lymphocytes % 7.2 % (15.3-44.8); MPV 9.4 fL (7.6-11.3); RBC Red Blood Cell Count 4.53 M/uL (3.86-4.86)
[2022-01-03 04:04] LABS: Albumin 3.4 g/dL (3.4-5.0); Bilirubin Direct 0.1 mg/dL (0-0.2); Bilirubin Total 0.4 mg/dL (0.2-1.0); Protein, Total 6.9 g/dL (6.4-8.2)
[2022-01-03 04:26] LABS: Blood Morphology Comment NOT SEEN (NOT SEEN); Platelet Estimate ADEQ; White Blood Cell Scan OK (OK)
[2022-01-03] MEDS: D5 0.45 NS 1,000 ML IV SCH ×2 (07:36→08:00)
[2022-01-03 12:51] VITALS: BP 94/49; TEMP 98
== END 2022-01-03 14:15 | disposition home health service (06) ==
LOC: ER 11:40 → ERHOLD 15:07 → 4TH 16:09
PROVIDERS: ADMIT Surgery; ATTEND Surgery
PROC: 0DTJ4ZZ Resection of Appendix, Percutaneous Endoscopic Approach (ICD-10-PCS; principal; 2022-01-02 16:30)
DX: K35.80 Unspecified acute appendicitis (principal); Z98.51 Tubal ligation status; Z20.822 Contact with and (suspected) exposure to COVID-19
CPT/HCPCS: 96365; 96361; 87088; 85025 ×2; 87086; 80048; 36415; 81025; 80076; 88304; 83690 ×2; 80053; 74177; 76705; 94010; 96375; 99284; 44970; U0003; Q9967; J2704; J2710; J2543 ×3; C9113; J3010; J1100; J2175; J7799 ×2; J7120; J7030; J2405 ×3; G0378 ×3; 81003; 81015

== ENCOUNTER 2022-01-04 18:53 | Emergency (ER) | payer OTHER ==
--- OUTSIDE RECORDS SUMMARY | 2022-01-04 18:55 | XMS REPORT | Continuity of Care Document ---
:1980 Author Organization [facility] t Address [address] [place] [address] Care Team Providers Name Role Phone Uvaldo Greco DO Attending Clinician Bret Taylor Attending Clinician Bret SCHOFIELD Attending Clinician Unavailable Adarsh Jean Attending Clinician Payers Payer Name Policy Type [...] ligation -06 ity of 00:00: [place] [facility] Labor and Labor and Disease Active Uni vers delivery, delivery, 07-31 [place] of [place] for care 00 Medica l Branch 35 weeks 35 weeks Disease Active Unive rs gestation gestation - ity of of of 00:00: [place] 00 [facility] IUGR IUGR Disease Active 2018-07 Univers (intrauter (intrauter 1 it y of ine growth ine growth [...] 00:00: [facility] [place] [facility] Previous Previous Disease Active Unive rs [...] 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 Utility Allergies, Adverse Reactions, Alerts Allergy Allergy Status Severity Reaction(s) Onset Inactive Treating Comm ents Source Name Type Date Date Clinician NO KNOWN Drug Active Univers ALLERGIE Class ity of S [facility] Social History Social Habit Start Date Stop Date Quantity Comments Source Alcohol intake 2019-09-15 2019-09-15 Current drinker Unive rsity of 00:00:00 00:00:00 of alcohol [facility] (finding) [place] Tobacco use and 2019-09-15 2019-09-15 Never used Universit y of exposure 00:00:00 00:00:00 [facility] History SDOH 2019-08-01 2019-08-01 11 University o f Education 00:00:00 00:00:00 [facility] Alcohol Comment 2013-11-28 2013-11-28 socially prior to Un iversity of 00:00:00 00:00:00 [facility] Sex [birth year] Universit y of 00:00:00 00:00:00 [facility] Smoking Status Start Date Stop Date Source Never smoker [facility] Medications Ordered Filled Start Stop Current Ordering Indication Dosage Frequency Signature Comments Components Source Medication Medication Date Date Medication? Clinician (SIG) Name Name famotidine Yes 20mg Take 20 mg U nivers (PEPCID) 20 2-17 by mouth 2 it y of mg tablet 16:06: (two) [place] 38 times Medical daily. Branch famotidine 2020-0 Yes 20mg Take 20 mg U nivers (PEPCID) 20 2-17 by mouth 2 it y of mg tablet 16:06: (two) [place] 38 times Medical daily. Branch famotidine 2020-0 Yes 20mg Take 20 mg U nivers (PEPCID) 20 2-17 by mouth 2 it y of mg tablet 16:06: (two) [place] 38 times Medical daily. Branch ibuprofen 2020-0 Yes [id number] 800mg Take 1 Univers 800 mg 1-06 tablet by ity of tablet 00:00: mouth [place] 00 every 6 Medical (six) Branch hours as needed for Pain (scale 4-6). HYDROcodone 2020-0 Yes [id number] 1{tbl} Take 1 Univers -acetaminop 1-06 tablet by ity of hen 5-325 00:00: mouth [place] mg tablet 00 every 6 Medical (six) Branch hours as needed for Pain (scale 4-6). 2020-0 Yes [id number] 1{tbl} Take 1 Univers vitamin 1-06 tablet by ity of w/FA tablet 00:00: mouth [place] 00 daily. Medical Branch docusate 2020-0 Yes [id number] 240mg Take 1 U nivers calcium 240 1-06 capsule by it y of mg capsule 00:00: mouth once [place] 00 daily as Medical needed for Branch Constipati on. ferrous 2020-0 Yes [id number] 325mg Take 1 Un everardo sulfate 325 1-06 tablet by ity of mg (65 mg 00:00: mouth 2 [place] iron) 00 (two) Medical tablet times Branch daily. ibuprofen 2020-0 Yes [id number] 600mg Take 1 Univers 600 mg 1-06 tablet by ity of tablet 00:00: mouth [place] 00 every 6 Medical (six) Branch hours as needed (Pain). Take with food or milk. metroNIDAZO 2020-0 Yes [id number] 500mg Take 1 Univers LE (FLAGYL) 1-06 tablet by ity of 500 mg 00:00: mouth 2 [place] tablet 00 (two) Medical times Branch daily. ibuprofen 2020-0 Yes [id number] 800mg Take 1 Univers 800 mg 1-06 tablet by ity of tablet 00:00: mouth [place] 00 every 6 Medical (six) Branch hours as needed for Pain (scale 4-6). HYDROcodone 2020-0 Yes [id number] 1{tbl} Take 1 Univers -acetaminop 1-06 tablet by ity of hen 5-325 00:00: mouth [place] mg tablet 00 every 6 Medical (six) Branch hours as needed for Pain (scale 4-6). 2020-0 Yes [id number] 1{tbl} Take 1 Univers vitamin 1-06 tablet by ity of w/FA tablet 00:00: mouth [place] 00 daily. Medical Branch docusate 2020-0 Yes [id number] 240mg Take 1 U nivers calcium 240 1-06 capsule by it y of mg capsule 00:00: mouth once [place] 00 daily as Medical needed for Branch Constipati on. ferrous 2020-0 Yes [id number] 325mg Take 1 Un everardo sulfate 325 1-06 tablet by ity of mg (65 mg 00:00: mouth 2 [place] iron) 00 (two) Medical tablet times Branch daily. ibuprofen 2020-0 Yes [id number] 600mg Take 1 Univers 600 mg 1-06 tablet by ity of tablet 00:00: mouth [place] 00 every 6 Medical (six) Branch hours as needed (Pain). Take with food or milk. metroNIDAZO 2020-0 Yes [id number] 500mg Take 1 Univers LE (FLAGYL) 1-06 tablet by ity of 500 mg 00:00: mouth 2 [place] tablet 00 (two) Medical times Branch daily. ibuprofen 2020-0 Yes [id number] 800mg Take 1 Univers 800 mg 1-06 tablet by ity of tablet 00:00: mouth [place] 00 every 6 Medical (six) Branch hours as needed for Pain (scale 4-6). HYDROcodone 2020-0 Yes [id number] 1{tbl} Take 1 Univers -acetaminop 1-06 tablet by ity of hen 5-325 00:00: mouth [place] mg tablet 00 every 6 Medical (six) Branch hours as needed for Pain (scale 4-6). 2020-0 Yes [id number] 1{tbl} Take 1 Univers vitamin 1-06 tablet by ity of w/FA tablet 00:00: mouth [place] 00 daily. Medical Branch docusate 2020-0 Yes [id number] 240mg Take 1 U nivers calcium 240 1-06 capsule by it y of mg capsule 00:00: mouth once [place] 00 daily as Medical needed for Branch Constipati on. ferrous 2020-0 Yes [id number] 325mg Take 1 Un everardo sulfate 325 1-06 tablet by ity of mg (65 mg 00:00: mouth 2 [place] iron) 00 (two) Medical tablet times Branch daily. ibuprofen 2020-0 Yes [id number] 600mg Take 1 Univers 600 mg 1-06 tablet by ity of tablet 00:00: mouth [place] 00 every 6 Medical (six) Branch hours as needed (Pain). Take with food or milk. metroNIDAZO 2020-0 Yes [id number] 500mg Take 1 Univers LE (FLAGYL) 1-06 tablet by ity of 500 mg 00:00: mouth 2 [place] tablet 00 (two) Medical times Branch daily. ibuprofen 2020-0 Yes [id number] 800mg Take 1 Univers 800 mg 1-06 tablet by ity of tablet 00:00: mouth [place] 00 every 6 Medical (six) Branch hours as needed for Pain (scale 4-6). HYDROcodone 2020-0 Yes [id number] 1{tbl} Take 1 Univers -acetaminop 1-06 tablet by ity of hen 5-325 00:00: mouth [place] mg tablet 00 every 6 Medical (six) Branch hours as needed for Pain (scale 4-6). 2020-0 Yes [id number] 1{tbl} Take 1 Univers vitamin 1-06 tablet by ity of w/FA tablet 00:00: mouth [place] 00 daily. Medical Branch docusate 2020-0 Yes [id number] 240mg Take 1 U nivers calcium 240 1-06 capsule by it y of mg capsule 00:00: mouth once [place] 00 daily as Medical needed for Branch Constipati on. ferrous 2020-0 Yes [id number] 325mg Take 1 Un everardo sulfate 325 1-06 tablet by ity of mg (65 mg 00:00: mouth 2 [place] iron) 00 (two) Medical tablet times Branch daily. ibuprofen 2020-0 Yes [id number] 600mg Take 1 Univers 600 mg 1-06 tablet by ity of tablet 00:00: mouth [place] 00 every 6 Medical (six) Branch hours as needed (Pain). Take with food or milk. metroNIDAZO 2020-0 Yes [id number] 500mg Take 1 Univers LE (FLAGYL) 1-06 tablet by ity of 500 mg 00:00: mouth 2 [place] tablet 00 (two) Medical times Branch daily. ibuprofen 2020-0 Yes [id number] 800mg Take 1 Univers 800 mg 1-06 tablet by ity of tablet 00:00: mouth [place] 00 every 6 Medical (six) Branch hours as needed for Pain (scale 4-6). HYDROcodone 2020-0 Yes [id number] 1{tbl} Take 1 Univers -acetaminop 1-06 tablet by ity of hen 5-325 00:00: mouth [place] mg tablet 00 every 6 Medical (six) Branch hours as needed for Pain (scale 4-6). 2020-0 Yes [id number] 1{tbl} Take 1 Univers vitamin 1-06 tablet by ity of w/FA tablet 00:00: mouth [place] 00 daily. Medical Branch docusate 2020-0 Yes [id number] 240mg Take 1 U nivers calcium 240 1-06 capsule by it y of mg capsule 00:00: mouth once [place] 00 daily as Medical needed for Branch Constipati on. ferrous 2020-0 Yes [id number] 325mg Take 1 Un everardo sulfate 325 1-06 tablet by ity of mg (65 mg 00:00: mouth 2 [place] iron) 00 (two) Medical tablet times Branch daily. ibuprofen 2020-0 Yes [id number] 600mg Take 1 Univers 600 mg 1-06 tablet by ity of tablet 00:00: mouth [place] 00 every 6 Medical (six) Branch hours as needed (Pain). Take with food or milk. metroNIDAZO 2020-0 Yes [id number] 500mg Take 1 Univers LE (FLAGYL) 1-06 tablet by ity of 500 mg 00:00: mouth 2 [place] tablet 00 (two) Medical times Branch daily. Immunizations Ordered Filled Immunization Date Status Comments [facility] e Immunization Name Name TDAP 2019-06-10 Completed University of 00:00:00 [facility] Tdap 2019-06-10 Completed University of 00:00:00 [facility] Tdap 2019-06-10 Completed University of 00:00:00 [facility] Tdap 2019-06-10 Completed University of 00:00:00 [facility] Tdap 2019-06-10 Completed University of 00:00:00 [facility] MMR 2018-03-21 Completed University of 00:00:00 [facility] MMR 2018-03-21 Completed University of 00:00:00 [facility] MMR 2018-03-21 Completed University of 00:00:00 [place] [facility] MMR 2018-03-21 Completed University of 00:00:00 [place] [facility] MMR 2018-03-21 Completed University of 00:00:00 [place] [facility] TDAP 2018-01-02 Completed University of 00:00:00 [place] [facility] Tdap 2018-01-02 Completed University of 00:00:00 [place] [facility] Tdap 2018-01-02 Completed University of 00:00:00 [place] [facility] Tdap 2018-01-02 Completed University of 00:00:00 [place] [facility] Tdap 2018-01-02 Completed University of 00:00:00 [place] [facility] TDAP 2015-11-23 Completed University of 00:00:00 [place] [facility] Tdap 2015-11-23 Completed University of 00:00:00 [place] [facility] Tdap 2015-11-23 Completed University of 00:00:00 [place] [facility] Tdap 2015-11-23 Completed University of 00:00:00 [place] [facility] Tdap 2015-11-23 Completed University of 00:00:00 [facility] Vital Signs Vital Name Observation Time Observation Value Comments Source Systolic blood 2019-09-15 15:53:00 97 mm[Hg] Univer sity of pressure [facility] Diastolic blood 2019-09-15 15:53:00 67 mm[Hg] Unive rsity [facility] Heart rate 2019-09-15 15:53:00 64 /min [facility] Body temperature 2019-09-15 15:53:00 36.39 [facility] Res[facility] rate 2019-09-15 15:53:00 16 /min [facility] Body height 2019-09-15 15:53:00 154.9 cm [facility] Body weight 2019-09-15 15:53:00 54.432 kg [facility] BMI 2019-09-15 15:53:00 22.67 kg/m2 [facility] Systolic blood 2019-08-25 15:28:00 110 mm[Hg] Univer sity of pressure [facility] Diastolic blood 2019-08-25 15:28:00 79 mm[Hg] Unive rsity of pressure [facility] Heart rate 2019-08-25 15:28:00 72 /min [facility] Body temperature 2019-08-25 15:28:00 36.5 Chastity [facility] Respiratory rate 2019-08-25 15:28:00 16 /min [facility] Body height 2019-08-25 15:28:00 154.9 cm [facility] Body weight 2019-08-25 15:28:00 56.87 kg [facility] BMI 2019-08-25 15:28:00 23.69 kg/m2 [facility] Procedures This patient has no known procedures. 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 [id number] ity of REGIONAL [id number] [place] as MATERNAL [id number] Med ical & CHILD [address] [place] [address] 2019-09-15 2019-09-15 Outpatient R CHANDU [facility] [id number] Univers 09:30:00 10:23:11 CORDELIA ity o f [facility] 2019-08-25 2019-08-25 Routine Akinkvng [facility] [id number] Univers 09:15:24 10:15:07 Hue C INVESTMENT BANKING MANAGER [id number] ity of Visit [facility] [id number] [place] as MATERNAL [id number] [facility] ical & CHILD [address] [place] [address] 2019-08-22 2019-08-22 [facility] [id number] Univers 00:00:00 00:00:00 Rosedmundo Queen INVESTMENT BANKING MANAGER [id number] ity of [facility] [id number] [place] as MATERNAL [id number] Med ical & CHILD [address] [place] [address] Results This patient has no known results.
[2022-01-04] MEDS ORDERED: NA CHLORIDE 0.9% 1,000 ML ONE (20:27)
[2022-01-04 21:00] LABS: Absolute Lymphocytes (CBC) 1.6 K/uL (0.7-4.9); Hematocrit 39.6 % (36.0-45.0); Lymphocytes % 21.4 % (15.3-44.8); RBC Red Blood Cell Count 4.81 M/uL (3.86-4.86)
[2022-01-04 21:06] LABS: Protime INR 1.02
[2022-01-04 21:20] LABS: Potassium 3.5 mmol/L (3.5-5.1)
--- NOTE | 2022-01-04 21:58 | EDPHYS ---
Physician Documentation 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 19:34 The patient presents with vaginal bleeding that is moderate, with clots. Onset: The rn symptoms/episode began/occurred today. Modifying factors: The symptoms are alleviated by nothing, the symptoms are aggravated by standing. Associated signs and symptoms: Pertinent positives: cramping, Pertinent negatives: fever, hematuria. Severity of symptoms: At their worst the symptoms were moderate, in the emergency department the symptoms have improved. The patient has not experienced similar symptoms in the past. The patient has been recently seen by a physician: The patient has been recently been admitted at [facility]. Pt reports just admitted and discharged for uncomplicated appendicitis. Today started having vaginal bleeding, states is her menstrual period but is heavier than usual. No new abd pain. No vomiting. No fever. + tubal ligation in past.. Historical: - Allergies: 19:11 No Known Allergies; ll1 - PMHx: 19:11 H Pylori; ll1 - PSHx: 19:11 Appendectomy; section; tubal; ll1 - Immunization history:: Client reports receiving the 2nd dose of the Covid vaccine. - Social history:: Smoking status: Patient denies any tobacco usage or history of. - Family history:: not pertinent. - Hospitalizations: : The patient was recently seen at [facility]. ROS: 19:34 Positive for vaginal bleeding, Negative for hematuria, burning with urination, rn vaginal discharge. 19:34 Constitutional: Negative for fever, chills, and weight loss, Eyes: Negative for injury, pain, redness, and discharge, Cardiovascular: Negative for chest pain, palpitations, and edema, Respiratory: Negative for shortness of breath, cough, wheezing, and pleuritic chest pain, Abdomen/GI: + abd cramping, neg for vomiting/diarrhea : + vaginal bleeding MS/Extremity: Negative for injury and deformity, Skin: Negative for injury, rash, and discoloration, Neuro: + lightheaded and generalized weakness Exam: 19:34 Constitutional: This is a well developed, well nourished patient who is awake, alert, rn and in no acute distress. Head/Face: Normocephalic, atraumatic. Eyes: Periorbital areas with no swelling, redness, or edema. Cardiovascular: Regular rate and rhythm. No pulse deficits. Respiratory: No increased work of breathing, no retractions or nasal flaring. Abdomen/GI: soft, non-tender, non-distended Skin: Warm, dry MS/ Extremity: Pulses equal, no cyanosis. Neuro: Awake and alert, GCS 15 Vital Signs: 19:08 BP 118 / 69; Pulse 85; Resp 17; Temp 98.5; Pulse Ox 99% ; Weight 57.61 kg; Height 5 ft. ll1 1 in. (154.94 cm); Pain 6/10; 20:26 BP 107 / 72; Pulse 73; Resp 18; Pulse Ox 99% on R/A; Pain 3/10; ld1 20:57 BP 102 / 77; Pulse 73; Resp 18; Pulse Ox 99% on R/A; ld1 21:41 BP 116 / 83; Pulse 72; Resp 18; Pulse Ox 100% on R/A; ld1 22:14 BP 109 / 67; Pulse 84; Resp 18; Pulse Ox 100% on R/A; ld1 19:08 Body Mass Index 24.00 (57.61 kg, 154.94 cm) ll1 MDM: 19:02 Patient medically screened. rn 21:56 Differential diagnosis: menometrorrhagia, menorrhea, dehydration. Data reviewed: vital rn signs, nurses notes, lab test result(s), and as a result, I will discharge patient. Counseling: I had a detailed discussion with the patient and/or guardian regarding: the historical points, exam findings, and any diagnostic results supporting the discharge/admit diagnosis, the need for outpatient follow up, to return to the emergency department if symptoms worsen or persist or if there are any questions or concerns that arise at home. Response to treatment: the patient's symptoms have markedly improved after treatment, and as a result, I will discharge patient. Special discussion: I discussed with the patient/guardian in detail that at this point there is no indication for admission to the hospital. It is understood, however, that if the symptoms persist or worsen the patient needs to return immediately for re-evaluation. ED course: Pt feels better after fluids, bleeding decreasing, stable vitals, normal h/h, offered oral contraceptives to slow bleeding, after long discussion, decision made to treat conservatively with watch and wait plan and understands return precautions.. 01/04 19:21 Order name: CBC with Diff; Complete Time: 21:37 rn 01/04 19:21 Order name: Basic Metabolic Panel; Complete Time: 21:37 rn 01/04 19:21 Order name: IV Start; Complete Time: 20:57 rn 01/04 19:21 Order name: Protime (+inr); Complete Time: 21:37 rn 01/04 19:21 Order name: Ptt, Activated; Complete Time: 21:37 rn Administered Medications: 20:27 Drug: NS 0.9% 1000 ml Route: IV; Rate: 1000 ml; Site: right antecubital; ld1 Disposition Summary: 01/04/22 21:57 Discharge Ordered Location: Home rn Problem: new rn Symptoms: have improved rn Condition: Stable rn Diagnosis - Abnormal uterine and vaginal bleeding, unspecified rn Followup: rn - With: Private Physician - When: 1 - 2 days - Reason: Recheck today's complaints, Re-evaluation by your physician Discharge Instructions: - Discharge Summary Sheet rn - Abnormal Uterine Bleeding rn Forms: - Medication Reconciliation Form rn - Thank You Letter rn - Antibiotic claim attorney - Prescription Opioid Use rn Signatures: Dispatcher [employer] Kirby Devries MD MD rn Lewis, Lynsay RN RN ll1 Kayla Parra RN RN ld1
--- NOTE | 2022-01-04 21:58 | ER ---
Nurse's Notes [facility] Name: Yanique Mcrae Age: 41 yrs Sex: Female : 1980 Arrival Date: 01/04/2022 Time: 18:54 Bed 24 Private MD: Diagnosis: Abnormal uterine and vaginal bleeding, unspecified Presentation: 01/04 19:08 Chief complaint: Patient states: 01/02/22 appendectomy. Started her period yesterday. ll1 Today, had a heavier bleeding than normal with clots. + feels weak. Coronavirus screen: Vaccine status: Patient reports being unvaccinated. Client denies travel out of the [place] in the last 14 days. At this time, the client does not indicate any symptoms associated with coronavirus-19. Ebola Screen: Patient denies travel to an Ebola-affected area in the 21 days before illness onset. Initial Sepsis Screen: Does the patient meet any 2 criteria? No. Patient's initial sepsis screen is negative. Does the patient have a suspected source of infection? Yes: Acute abdominal pain. Risk Assessment: Do you want to hurt yourself or someone else? Patient reports no desire to harm self or others. Onset of symptoms was January 02, 2022. 19:08 Method Of Arrival: Wheelchair ll1 19:08 Acuity: ANNE 3 ll1 Triage Assessment: 19:11 General: Appears uncomfortable, Behavior is cooperative, appropriate for age. Pain: ll1 Complains of pain in pelvic Quality of pain is described as aching, crampy. : Reports vaginal bleeding that is. Historical: - Allergies: 19:11 No Known Allergies; ll1 - PMHx: 19:11 H Pylori; ll1 - PSHx: 19:11 Appendectomy; section; tubal; ll1 - Immunization history:: Client reports receiving the 2nd dose of the Covid vaccine. - Social history:: Smoking status: Patient denies any tobacco usage or history of. - Family history:: not pertinent. - Hospitalizations: : The patient was recently seen at [facility]. Screenin:26 Abuse screen: Denies threats or abuse. Denies injuries from another. Nutritional ld1 screening: No deficits noted. Tuberculosis screening: No symptoms or risk factors identified. Fall Risk None identified. Assessment: 20:26 Reassessment: See triage assessment. Patient denies pain at this time. ld1 20:57 Reassessment: Patient appears in no apparent distress at this time. No changes from ld1 previously documented assessment. Patient and/or family updated on plan of care and expected duration. Pain level reassessed. Patient is alert, oriented x 3, equal unlabored respirations, skin warm/dry/pink. 21:41 Reassessment: Patient appears in no apparent distress at this time. Patient and/or ld1 family updated on plan of care and expected duration. Pain level reassessed. Patient is alert, oriented x 3, equal unlabored respirations, skin warm/dry/pink. 22:14 Reassessment: Patient appears in no apparent distress at this time. No changes from ld1 previously documented assessment. Patient and/or family updated on plan of care and expected duration. Pain level reassessed. Vital Signs: 19:08 BP 118 / 69; Pulse 85; Resp 17; Temp 98.5; Pulse Ox 99% ; Weight 57.61 kg; Height 5 ft. ll1 1 in. (154.94 cm); Pain 6/10; 20:26 BP 107 / 72; Pulse 73; Resp 18; Pulse Ox 99% on R/A; Pain 3/10; ld1 20:57 BP 102 / 77; Pulse 73; Resp 18; Pulse Ox 99% on R/A; ld1 21:41 BP 116 / 83; Pulse 72; Resp 18; Pulse Ox 100% on R/A; ld1 22:14 BP 109 / 67; Pulse 84; Resp 18; Pulse Ox 100% on R/A; ld1 19:08 Body Mass Index 24.00 (57.61 kg, 154.94 cm) ll1 ED Course: 18:54 Patient arrived in ED. rg4 19:02 Kirby Lugo MD is Attending Physician. rn 19:11 Triage completed. ll1 19:11 Arm band placed on. ll1 20:19 Kayla Parra, JENIFFER is Primary Nurse. ld1 20:26 Patient has correct armband on for positive identification. Placed in gown. Bed in low ld1 position. Call light in reach. Side rails up X2. monitoring coordinator on. Pulse ox on. NIBP on. Door closed. Noise minimized. Warm blanket given. 20:26 No provider procedures requiring assistance completed. ld1 20:57 Inserted saline lock: 20 gauge in right antecubital area, using aseptic technique. ld1 Blood collected. 22:14 IV discontinued, intact, bleeding controlled, No redness/swelling at site. ld1 Administered Medications: 20:27 Drug: NS 0.9% 1000 ml Route: IV; Rate: 1000 ml; Site: right antecubital; ld1 Medication: 20:26 VIS not applicable for this client. ld1 Outcome: :57 Discharge ordered by . rn 22:14 Discharged to home ambulatory, with family. ld1 22:14 Condition: stable 22:14 Discharge instructions given to patient, family, Instructed on discharge instructions, follow up and referral plans. Demonstrated understanding of instructions, follow-up care. 22:15 Patient left the ED. ld1 Signatures: Kirby uLgo MD MD rn Garcia, Rubi rg4 Mathieu Shin RN RN 1 Kayla Parra RN RN ld1
[2022-01-04 22:44] VITALS: TEMP 98.5
[2022-01-04 22:52] VITALS: O2SAT 100
[2022-01-04 22:53] VITALS: BP 109/67
== END 2022-01-04 22:15 | disposition home or self-care (01) ==
LOC: ER 18:53
DX: N93.9 Abnormal uterine and vaginal bleeding, unspecified (principal); Z98.890 Other specified postprocedural states
CPT/HCPCS: 85025; 80048; 36415; 85610; 85730; 99284; J7030

== ENCOUNTER 2023-01-21 17:28 | Emergency (ER) | payer OTHER ==
--- OUTSIDE RECORDS SUMMARY | 2023-01-21 17:31 | XMS REPORT | Continuity of Care Document ---
:1980 [facility] t Address [address] [facility] [address] [place] [address] Care Team Providers Name Role Phone Elis GONCALEVS, Eli Primary Care Physician [phone] Tushar Greco DO Attending Clinician Cordelia Taylor Attending Clinician CORDELIA SCHOFIELD Attending Clinician Unavailable Hue Jean Attending Clinician [phone] Payers Payer Name Policy Type Policy Number Effective Date Expiration Date S ource Problems Condition Condition Condition Status Onset Resolution Last Treating Co mments Source Name Details Category Date Date Treatment Clinician Date Routine Routine Disease Active Univers 08-25 [place] [address] [place] [address] S/P tubal S/P tubal Disease Active Uni vers ligation ligation 08-04 ity of 00:00: [address] Labor and Labor and Disease Active Uni vers delivery, delivery, 07-31 [place] 00 [facility] 35 weeks 35 weeks Disease Active Unive rs gestation gestation 07-31 ity of of of 00:00: [place] 00 [facility] IUGR IUGR Disease Active 2018-07 Univers (intrauter [...] 00:00: Postpartu [place] antepartum antepartum 00 m Ga dical Branch Previous Previous Disease Active Unive rs 3- ity of delivery delivery 00:00: [place] affecting affecting 00 Medi jefry , , Br anch antepartum antepartum Multiparit Multiparit Disease Active U nivers y y 3- ity of 00:00: [place] 00 Medical Branch AMA AMA Disease Active Univers (advanced (advanced 3-26 ity of maternal maternal 00:00: [place] age) age) 00 Medical multigravi multigravi Br anch da 35+, da 35+, second second trimester trimester Supervisio Supervisio Disease Active Overview : Univers n of high n of high 5-30 ICD10 ity of risk risk 00:00: Diagnosis [place] 00 Term Medi jefry in third in third [employer] Bran ch trimester trimester Utility Allergies, Adverse Reactions, Alerts Allergy Allergy Status Severity Reaction(s) Onset Inactive Treating Comm ents Source Name Type Date Date Clinician NO KNOWN Drug Active Univers ALLERGIE Class ity of S [facility] Social History Social Habit Start Date Stop Date Quantity Comments Source Alcohol intake 2019-09-15 2019-09-15 Current drinker Unive rsity of 00:00:00 00:00:00 of alcohol [facility] (finding) [facility] Tobacco use and 2019-09-15 2019-09-15 Never used Universit y of exposure 00:00:00 00:00:00 [facility] History SDOH 2019-08-01 2019-08-01 11 University o f Education 00:00:00 00:00:00 [facility] Alcohol Comment 2013-11-28 2013-11-28 socially prior to Un iversity of 00:00:00 00:00:00 [facility] Sex [birth year] Universit y of 00:00:00 00:00:00 [facility] Smoking Status Start Date Stop Date Source Never smoker [facility] Branch Medications Ordered Filled Start Stop Current Ordering Indication Dosage Frequency Signature Comments Components Source Medication Medication Date Date Medication? Clinician (SIG) Name Name metronidazo No 1mg le 500 mg - tablet 00:00: 00 permethrin No 1% 5 % topical 02-02 cream 00:00: 00 triamcinolo No 1% ne 02-02 acetonide 00:00: 0.1 % 00 topical cream hydroxyzine No 1mg HCl 25 mg - tablet 00:00: 00 erythromyci No 1(0.5 n 5 mg/gram 9-24 %) (0.5 %) eye 00:00: ointment 00 famotidine 0 Yes 20mg Take 20 mg U nivers (PEPCID) 20 2-17 by mouth 2 it y of mg tablet 16:06: (two) [place] 38 times Medical daily. Branch famotidine 2019-0 Yes 20mg Take 20 mg U nivers (PEPCID) 20 2-17 by mouth 2 it y of mg tablet 16:06: (two) [place] 38 times Medical daily. Branch famotidine 2019-0 Yes 20mg Take 20 mg U nivers (PEPCID) 20 2-17 by mouth 2 it y of mg tablet 16:06: (two) [place] 38 times Medical daily. Branch ibuprofen 2019-0 Yes [id number] 800mg Take 1 Univers 800 mg 1-06 tablet by ity of tablet 00:00: mouth [place] 00 every 6 Medical (six) Branch hours as needed for Pain (scale 4-6). HYDROcodone 2019-0 Yes [id number] 1{tbl} Take 1 Univers -acetaminop 1-06 tablet by ity of hen 5-325 00:00: mouth [place] mg tablet 00 every 6 Medical (six) Branch hours as needed for Pain (scale 4-6). 2020-0 Yes [id number] 1{tbl} Take 1 Univers vitamin 1-06 tablet by ity of w/FA tablet 00:00: mouth [place] 00 daily. Medical Branch docusate 2020-0 Yes [id number] 240mg Take 1 U nivers calcium 240 1-06 capsule by it y of mg capsule 00:00: mouth once [place] 00 daily as Medical needed for Branch Constipati on. ferrous 2020-0 Yes [id number] 325mg Take 1 Un everardo sulfate 325 1-06 tablet by ity of mg (65 mg 00:00: mouth 2 [place] iron) 00 (two) Medical tablet times Branch daily. ibuprofen 2020-0 Yes [id number] 600mg Take 1 Univers 600 mg 1-06 tablet by ity of tablet 00:00: mouth [place] 00 every 6 Medical (six) Branch hours as needed (Pain). Take with food or milk. metroNIDAZO 2020-0 Yes [id number] 500mg Take 1 Univers LE (FLAGYL) 1-06 tablet by ity of 500 mg 00:00: mouth 2 [place] tablet 00 (two) Medical times Branch daily. ibuprofen 2020-0 Yes [id number] 800mg Take 1 Univers 800 mg 1-06 tablet by ity of tablet 00:00: mouth [place] 00 every 6 Medical (six) Branch hours as needed for Pain (scale 4-6). HYDROcodone 2020-0 Yes [id number] 1{tbl} Take 1 Univers -acetaminop 1-06 tablet by ity of hen 5-325 00:00: mouth [place] mg tablet 00 every 6 Medical (six) Branch hours as needed for Pain (scale 4-6). 2020-0 Yes [id number] 1{tbl} Take 1 Univers vitamin 1-06 tablet by ity of w/FA tablet 00:00: mouth [place] 00 daily. Medical Branch docusate 2020-0 Yes [id number] 240mg Take 1 U nivers calcium 240 1-06 capsule by it y of mg capsule 00:00: mouth once [place] 00 daily as Medical needed for Branch Constipati on. ferrous 2020-0 Yes [id number] 325mg Take 1 Un everardo sulfate 325 1-06 tablet by ity of mg (65 mg 00:00: mouth 2 [place] iron) 00 (two) Medical tablet times Branch daily. ibuprofen 2020-0 Yes [id number] 600mg Take 1 Univers 600 mg 1-06 tablet by ity of tablet 00:00: mouth [place] 00 every 6 Medical (six) Branch hours as needed (Pain). Take with food or milk. metroNIDAZO 2020-0 Yes [id number] 500mg Take 1 Univers LE (FLAGYL) 1-06 tablet by ity of 500 mg 00:00: mouth 2 [place] tablet 00 (two) Medical times Branch daily. ibuprofen 2020-0 Yes [id number] 800mg Take 1 Univers 800 mg 1-06 tablet by ity of tablet 00:00: mouth [place] 00 every 6 Medical (six) Branch hours as needed for Pain (scale 4-6). HYDROcodone 2020-0 Yes [id number] 1{tbl} Take 1 Univers -acetaminop 1-06 tablet by ity of hen 5-325 00:00: mouth [place] mg tablet 00 every 6 Medical (six) Branch hours as needed for Pain (scale 4-6). 2020-0 Yes [id number] 1{tbl} Take 1 Univers vitamin 1-06 tablet by ity of w/FA tablet 00:00: mouth [place] 00 daily. Medical Branch docusate 2020-0 Yes [id number] 240mg Take 1 U nivers calcium 240 1-06 capsule by it y of mg capsule 00:00: mouth once [place] 00 daily as Medical needed for Branch Constipati on. ferrous 2020-0 Yes [id number] 325mg Take 1 Un everardo sulfate 325 1-06 tablet by ity of mg (65 mg 00:00: mouth 2 [place] iron) 00 (two) Medical tablet times Branch daily. ibuprofen 2020-0 Yes [id number] 600mg Take 1 Univers 600 mg 1-06 tablet by ity of tablet 00:00: mouth [place] 00 every 6 Medical (six) Branch hours as needed (Pain). Take with food or milk. metroNIDAZO 2020-0 Yes [id number] 500mg Take 1 Univers LE (FLAGYL) 1-06 tablet by ity of 500 mg 00:00: mouth 2 [place] tablet 00 (two) Medical times Branch daily. ibuprofen 2020-0 Yes [id number] 800mg Take 1 Univers 800 mg 1-06 tablet by ity of tablet 00:00: mouth [place] 00 every 6 Medical (six) Branch hours as needed for Pain (scale 4-6). HYDROcodone 2020-0 Yes [id number] 1{tbl} Take 1 Univers -acetaminop 1-06 tablet by ity of hen 5-325 00:00: mouth [place] mg tablet 00 every 6 Medical (six) Branch hours as needed for Pain (scale 4-6). 2020-0 Yes [id number] 1{tbl} Take 1 Univers vitamin 1-06 tablet by ity of w/FA tablet 00:00: mouth [place] 00 daily. Medical Branch docusate 2020-0 Yes [id number] 240mg Take 1 U nivers calcium 240 1-06 capsule by it y of mg capsule 00:00: mouth once [place] 00 daily as Medical needed for Branch Constipati on. ferrous 2020-0 Yes [id number] 325mg Take 1 Un everardo sulfate 325 1-06 tablet by ity of mg (65 mg 00:00: mouth 2 [place] iron) 00 (two) Medical tablet times Branch daily. ibuprofen 2020-0 Yes [id number] 600mg Take 1 Univers 600 mg 1-06 tablet by ity of tablet 00:00: mouth [place] 00 every 6 Medical (six) Branch hours as needed (Pain). Take with food or milk. metroNIDAZO 2020-0 Yes [id number] 500mg Take 1 Univers LE (FLAGYL) 1-06 tablet by ity of 500 mg 00:00: mouth 2 [place] tablet 00 (two) Medical times Branch daily. ibuprofen 2020-0 Yes [id number] 800mg Take 1 Univers 800 mg 1-06 tablet by ity of tablet 00:00: mouth [place] 00 every 6 Medical (six) Branch hours as needed for Pain (scale 4-6). HYDROcodone 2020-0 Yes [id number] 1{tbl} Take 1 Univers -acetaminop 1-06 tablet by ity of hen 5-325 00:00: mouth [place] mg tablet 00 every 6 Medical (six) Branch hours as needed for Pain (scale 4-6). 2020-0 Yes [id number] 1{tbl} Take 1 Univers vitamin 1-06 tablet by ity of w/FA tablet 00:00: mouth [place] 00 daily. Medical Branch docusate 2020-0 Yes [id number] 240mg Take 1 U nivers calcium 240 1-06 capsule by it y of mg capsule 00:00: mouth once [place] 00 daily as Medical needed for Branch Constipati on. ferrous 2020-0 Yes [id number] 325mg Take 1 Un everardo sulfate 325 1-06 tablet by ity of mg (65 mg 00:00: mouth 2 [place] iron) 00 (two) Medical tablet times Branch daily. ibuprofen 2020-0 Yes [id number] 600mg Take 1 Univers 600 mg 1-06 tablet by ity of tablet 00:00: mouth [place] 00 every 6 Medical (six) Branch hours as needed (Pain). Take with food or milk. metroNIDAZO 2020-0 Yes [id number] 500mg Take 1 Univers LE (FLAGYL) 1-06 tablet by ity of 500 mg 00:00: mouth 2 [place] tablet 00 (two) Medical times [facility] daily. Bactrim DS No 1mg 800 mg-160 3-03 mg tablet 00:00: 00 neomycin-po No 1mg/mL- lymyxin-hyd 7-05 unit/mL rocort 3.5 00:00: -% mg-10,000 00 unit/mL-1 % ear drops,susp fluconazole No 1mg 150 mg 7-05 tablet 00:00: 00 triamcinolo No 1% ne 6-08 acetonide 00:00: 0.1 % 00 dental paste clarithromy No 1mg ezekiel 500 mg 5-13 tablet 00:00: 00 amoxicillin No 2mg 500 mg 5-13 tablet 00:00: 00 omeprazole No 1mg 20 mg 5-13 tablet,norm 00:00: yed release 00 Immunizations Ordered Filled Immunization Date Status Comments Sour e Immunization Name Name HPV9 2022-02-21 Completed 00:00:00 TDAP 2019-06-10 Completed University of 00:00:00 [facility] Tdap 2019-06-10 Completed University of 00:00:00 [facility] Tdap 2019-06-10 Completed University of 00:00:00 [facility] Tdap 2019-06-10 Completed University of 00:00:00 [facility] Tdap 2019-06-10 Completed University of 00:00:00 [facility] MMR 2018-03-21 Completed University of 00:00:00 [facility] MMR 2018-03-21 Completed University of 00:00:00 [facility] MMR 2018-03-21 Completed University of 00:00:00 [facility] MMR 2018-03-21 Completed University of 00:00:00 [facility] MMR 2018-03-21 Completed University of 00:00:00 [facility] TDAP 2018-01-02 Completed University of 00:00:00 [facility] Tdap 2018-01-02 Completed University of 00:00:00 [facility] Tdap 2018-01-02 Completed University of 00:00:00 [facility] Tdap 2018-01-02 Completed University of 00:00:00 [facility] Tdap 2018-01-02 Completed University of 00:00:00 [place] [facility] TDAP 2015-11-23 Completed University of 00:00:00 [place] [facility] Tdap 2015-11-23 Completed University of 00:00:00 [place] [facility] Tdap 2015-11-23 Completed University of 00:00:00 [place] [facility] Tdap 2015-11-23 Completed University of 00:00:00 [place] [facility] Tdap 2015-11-23 Completed University of 00:00:00 [facility] Vital Signs Vital Name Observation Time Observation Value Comments Source Systolic blood 2019-09-15 15:53:00 97 mm[Hg] Univer sity of pressure [facility] Diastolic blood 2019-09-15 15:53:00 67 mm[Hg] Unive rsity of pressure [facility] Heart rate 2019-09-15 15:53:00 64 /min Universi ty of [facility] Body temperature 2019-09-15 15:53:00 36.39 Chastity Univ ersity of [facility] Respiratory rate 2019-09-15 15:53:00 16 /min Univ ersity of [facility] Body height 2019-09-15 15:53:00 154.9 cm Universi ty of [place] [facility] Body weight 2019-09-15 15:53:00 54.432 kg Universi ty of [place] [facility] BMI 2019-09-15 15:53:00 22.67 kg/m2 Universi ty of [facility] Systolic blood 2019-08-25 15:28:00 110 mm[Hg] Univer sity of pressure [facility] Diastolic blood 2019-08-25 15:28:00 79 mm[Hg] Unive rsity of pressure [facility] Heart rate 2019-08-25 15:28:00 72 /min Universi ty of [facility] Branch Body temperature 2019-08-25 15:28:00 36.5 Chastity Univ ersity of [facility] Branch Respiratory rate 2019-08-25 15:28:00 16 /min Univ ersity of [facility] Body height 2019-08-25 15:28:00 154.9 cm Universi ty of [place] [facility] Body weight 2019-08-25 15:28:00 56.87 kg Universi ty of [place] [facility] BMI 2019-08-25 15:28:00 23.69 kg/m2 Universi ty of [facility] BP Systolic 2022-02-21 13:35:00 103 mm[Hg] BP Diastolic 2022-02-21 13:35:00 71 mm[Hg] Weight Measured 2022-02-21 13:35:00 124.00 pounds Height Measured 2022-02-21 13:35:00 61.00 inches Body Temperature 2022-02-21 13:35:00 98.10 degrees Heart Rate 2022-02-21 13:35:00 87.00 /min Respiratory Rate 2022-02-21 13:35:00 16.00 /min BP Systolic 2021-02-02 14:24:00 107 mm[Hg] BP Diastolic 2021-02-02 14:24:00 76 mm[Hg] Weight Measured 2021-02-02 14:24:00 122.40 pounds Height Measured 2021-02-02 14:24:00 61.00 inches Body Temperature 2021-02-02 14:24:00 98.20 degrees Heart Rate 2021-02-02 14:24:00 81.00 /min Respiratory Rate 2021-02-02 14:24:00 16.00 /min BP Systolic 2020-04-22 14:15:00 103 mm[Hg] BP Diastolic 2020-04-22 14:15:00 69 mm[Hg] Weight Measured 2020-04-22 14:15:00 121.80 pounds Height Measured 2020-04-22 14:15:00 61.00 inches Body Temperature 2020-04-22 14:15:00 98.50 degrees Heart Rate 2020-04-22 14:15:00 86.00 /min Respiratory Rate 2020-04-22 14:15:00 17.00 /min BP Systolic 2019-08-27 17:10:00 102 mm[Hg] BP Diastolic 2019-08-27 17:10:00 72 mm[Hg] Weight Measured 2019-08-27 17:10:00 123.80 pounds Height Measured 2019-08-27 17:10:00 61.00 inches Body Temperature 2019-08-27 17:10:00 97.90 degrees Heart Rate 2019-08-27 17:10:00 78.00 /min Respiratory Rate 2019-08-27 17:10:00 20.00 /min Respiratory Rate 2017-06-05 11:18:00 BP Systolic 2017-06-05 11:18:00 95 mm[Hg] BP Diastolic 2017-06-05 11:18:00 67 mm[Hg] Weight Measured 2017-06-05 11:18:00 112.80 pounds Height Measured 2017-06-05 11:18:00 61.00 inches Body Temperature 2017-06-05 11:18:00 97.90 degrees Heart Rate 2017-06-05 11:18:00 69.00 /min BP Systolic 2016-09-28 13:53:00 115 mm[Hg] BP Diastolic 2016-09-28 13:53:00 75 mm[Hg] Weight Measured 2016-09-28 13:53:00 111.00 pounds Height Measured 2016-09-28 13:53:00 61.00 inches Body Temperature 2016-09-28 13:53:00 98.60 degrees Heart Rate 2016-09-28 13:53:00 95.00 /min Respiratory Rate 2016-09-28 13:53:00 BP Systolic 2016-02-01 15:14:00 97 mm[Hg] BP Diastolic 2016-02-01 15:14:00 64 mm[Hg] Weight Measured 2016-02-01 15:14:00 102.60 pounds Height Measured 2016-02-01 15:14:00 61.00 inches Body Temperature 2016-02-01 15:14:00 98.00 degrees Heart Rate 2016-02-01 15:14:00 81.00 /min Respiratory Rate 2016-02-01 15:14:00 14.00 /min BP Systolic 2016-01-05 14:35:00 104 mm[Hg] BP Diastolic 2016-01-05 14:35:00 70 mm[Hg] Weight Measured 2016-01-05 14:35:00 98.80 pounds Height Measured 2016-01-05 14:35:00 61.00 inches Body Temperature 2016-01-05 14:35:00 97.80 degrees Heart Rate 2016-01-05 14:35:00 75.00 /min Respiratory Rate 2016-01-05 14:35:00 17.00 /min Height Measured 2015-12-10 15:38:00 61.00 inches Body Temperature 2015-12-10 15:38:00 97.70 degrees Heart Rate 2015-12-10 15:38:00 70.00 /min Respiratory Rate 2015-12-10 15:38:00 16.00 /min BP Systolic 2015-12-10 15:38:00 105 mm[Hg] BP Diastolic 2015-12-10 15:38:00 73 mm[Hg] Weight Measured 2015-12-10 15:38:00 106.40 pounds Procedures This patient has no known procedures. Plan of Care Planned Activity Planned Date Details Comments Source Goal Plan of Care Note [code = 58131-5] Goal Plan of Care Note [code = 37113-0] Goal Plan of Care Note [code = 75183-7] Goal Plan of Care Note [code = 09620-8] Goal Plan of Care Note [code = 59397-6] Goal Plan of Care Note [code = 50244-4] Goal Plan of Care Note [code = 68155-3] Goal Plan of Care Note [code = 05500-3] Goal Plan of Care Note [code = 97661-4] Goal Plan of Care Note [code = 11875-3] Goal Plan of Care Note [code = 87619-6] Goal Plan of Care Note [code = 80609-7] Goal Plan of Care Note [code = 74633-1] Goal Plan of Care Note [code = 81608-4] Goal Plan of Care Note [code = 97899-4] Goal Plan of Care Note [code = 19440-7] Goal Plan of Care Note [code = 37388-9] Goal Plan of Care Note [code = 51162-6] Encounters Start End Encounter Admission Attending Care Care Encounter Source Date/Time Date/Time Type Type Clinicians Facility Department ID 2022-07-06 2022-07-06 Outpatient [facility] SFA [id number] Andi 17:09:15 17:09:15 1208 F Yvan 2022-02-21 2022-02-21 Outpatient [id number] 00:00:00 00:00:00 Visit [id number] 2020-10-18 2020-10-18 Patient BARBARA Greco [id number] Univers 00:00:00 00:00:00 Outreach [facility] [id number] i ty of [facility] [id number] [place] [phone] Ga dical [address] [place] [address] 2019-09-15 2019-09-15 [facility] [id number] Univers 09:38:32 10:23:11 Visit 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 [id number] ity of REGIONAL 4.2.7.2.686 [place] as MATERNAL [phone] [facility] & CHILD [address] [place] [address] 2019-09-15 2019-09-15 [facility] [id number] Univers 09:30:00 10:23:11 CORDELIA ity o f [facility] 2019-08-25 2019-08-25 [facility] [id number] Univers 09:15:24 10:15:07 Hue C 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 [id number] ity of Visit [facility] 4.2.7.2.686 [place] as MATERNAL [phone] [facility] & [address] 2019-08-22 2019-08-22 Telephone [facility] [id number] Univers 00:00:00 00:00:00 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 CHLAMYDIA, NAAT NEGATIVE NEGATIVE IMPORTA NT NOTICE: SEE ANNOUNCEMENT AT (test code = [email or web address] Note: 01202) Assay methodolo gy is nucleic acid amplification by transcriptio n mediated amplification (TMA) utilizing the A ptima Combo 2 Assay. VAGINAL PATHOGENS DNA [id number] 17:04:02 Test Item Value Reference Range Interpretation Comments LAVON SPECIES (test NEGATIVE NEGATIVE code = ) G. VAGINALIS (test NEGATIVE NEGATIVE code = ) T. VAGINALIS (test NEGATIVE NEGATIVE UNLESS O THERWISE code = ) INDICATED, ALL TESTING PERFORMED [facility] PATHOLOGY LABOR [email or web address] [address] [place] [address] 4 LABORATORY DIRE CTOR: ORALIA QURESHI M.D. CLIA NUMBER [id number] [place] [id number] HIV 1/2 4TH GEN, RFLX [id number] 06:34:55 Test Item Value Reference Range Interpretation Comments HIV 1/2 4TH GEN, RFLX CONF (test NON-REACTIVE NON-REACTIVE code = 3514) HEPATITIS PANEL, [id number] 06:34:55 Test Item Value Reference Range Interpretation Comments HEPATITIS A IgM (test NON-REACTIVE NON-REACTIVE code = 70219) HEPATITIS B CORE IgM NON-REACTIVE NON-REACTIVE (test code = 4644) HEPATITIS B SURF AG NON-REACTIVE NON-REACTIVE (test code = 2739) HEPATITIS C ANTIBODY NON-REACTIVE NON-REACTIVE (test code = 4675) INTERPRETATION (NOTE) Hepatitis A HEPATITIS A: (test code sero logy shows no = 2552) evidence of acu te hepatitis A. INTERPRETATION (NOTE) Hepatitis B HEPATITIS B: (test code sero logy shows no = 44460) evidence of acu te hepatitis B and no indication of exposure to hepatitis B vir us in the previous lulu eight months. INTERPRETATION (NOTE) Hepatitis C HEPATITIS C: (test code sero logy shows no = 70608) evidence of exposure to hepatitisC viru s at this time. I t can take up to 12 months after exposure tothe hepatitis C vir us for antibodies to become detectab le in the blood in certain patient s. [id number] 03:18:37 Test Item Value Reference Range Interpretation Comments RPR RESULT (test code = NON-REACTIVE NON-REACTIVE 3501) RPR TITER (test code = 3500) NOT INDIC. TITER NOT INDIC. CBC W/AUTO [id number] 00:00:00 Test Item Value Reference Range Interpretation Comments WBC (test code = 1001) 8.7 K/UL RBC (test code = 1002) 4.92 M/UL HEMOGLOBIN (test code = 1003) 14.4 G/DL HEMATOCRIT (test code = 1004) 42.3 % MCV (test code = 1005) 86.0 fL MCH (test code = 1006) 29.3 PG MCHC (test code = 1007) 34.0 G/DL RDW (test code = 1038) 11.9 % NEUTROPHILS (test code = 1008) 64.7 % LYMPHOCYTES (test code = 1010) 25.3 % MONOCYTES (test code = 1011) 7.6 % EOSINOPHILS (test code = 1012) 1.8 % BASOPHILS (test code = 1013) 0.6 % PLATELET COUNT (test code = 1015) 233 K/UL CBC W/AUTO [id number] 00:00:00 Test Item Value Reference Range Interpretation Comments WBC (test code = 1001) 8.7 K/UL RBC (test code = 1002) 4.92 M/UL HEMOGLOBIN (test code = 1003) 14.4 G/DL HEMATOCRIT (test code = 1004) 42.3 % MCV (test code = 1005) 86.0 fL MCH (test code = 1006) 29.3 PG MCHC (test code = 1007) 34.0 G/DL RDW (test code = 1038) 11.9 % NEUTROPHILS (test code = 1008) 64.7 % LYMPHOCYTES (test code = 1010) 25.3 % MONOCYTES (test code = 1011) 7.6 % EOSINOPHILS (test code = 1012) 1.8 % BASOPHILS (test code = 1013) 0.6 % PLATELET COUNT (test code = 1015) 233 K/UL PAP TEST, THINPREP, IMAGED [ADDED]2017-06-08 00:00:00 Test Item Value Reference Range Interpretation Comments SOURCE: (test code = Cervical/Endocervical 8001) SLIDES: (test code = 1 8011) LMP: (test code = 8021) 05/19/17 SPECIMEN ADEQUACY: (test (NOTE) code = 14164) INTERPRETATION: (test NO EPITHELIAL code = 73245) ABNORMALITY SEE BELOW E LEARNING MANAGER: (test VIKTOR code = 8101) LIDIA PERKINS(ASCP) PATHOLOGIST Freddie Clarke, INTERPRETATION BY: (test M.DPaulette code = 8122) LOCATION: (test code = (NOTE) 31719) CPT: (test code = 8140) (NOTE) CT/NG, TMA, THINPREP [ADDED]2017-06-08 00:00:00 Test Item Value Reference Range Interpretation Comments GONORRHEA, TMA (test code = 81705) NEGATIVE CHLAMYDIA, TMA (test code = 60792) NEGATIVE HPV HIGH RISK WITH GENOTYPE, TP [ADDED]2017-06-07 00:00:00 Test Item Value Reference Range Interpretation Comments HPV HIGH RISK INTERP (test code = NEGATIVE 72628) HPV 16 (test code = 57733) NEGATIVE HPV 18 (test code = 74409) NEGATIVE HPV, HR, OTHER GENOTYPES (test code NEGATIVE = 89885) CBC W/AUTO [id number] 00:00:00 Test Item Value Reference Range Interpretation Comments WBC (test code = 1001) 5.8 K/UL RBC (test code = 1002) 4.81 M/UL HEMOGLOBIN (test code = 1003) 14.4 G/DL HEMATOCRIT (test code = 1004) 43.1 % MCV (test code = 1005) 89.6 fL MCH (test code = 1006) 29.9 PG MCHC (test code = 1007) 33.4 G/DL RDW (test code = 1038) 12.1 % NEUTROPHILS (test code = 1008) 68.3 % LYMPHOCYTES (test code = 1010) 24.6 % MONOCYTES (test code = 1011) 6.1 % EOSINOPHILS (test code = 1012) 0.5 % BASOPHILS (test code = 1013) 0.5 % PLATELET COUNT (test code = 1015) 220 K/UL CBC W/AUTO [id number] 00:00:00 Test Item Value Reference Range Interpretation Comments WBC (test code = 1001) 5.8 K/UL RBC (test code = 1002) 4.81 M/UL HEMOGLOBIN (test code = 1003) 14.4 G/DL HEMATOCRIT (test code = 1004) 43.1 % MCV (test code = 1005) 89.6 fL MCH (test code = 1006) 29.9 PG MCHC (test code = 1007) 33.4 G/DL RDW (test code = 1038) 12.1 % NEUTROPHILS (test code = 1008) 68.3 % LYMPHOCYTES (test code = 1010) 24.6 % MONOCYTES (test code = 1011) 6.1 % EOSINOPHILS (test code = 1012) 0.5 % BASOPHILS (test code = 1013) 0.5 % PLATELET COUNT (test code = 1015) 220 K/UL ACUTE HEPATITIS [id number] 00:00:00 Test Item Value Reference Range Interpretation Comments HEPATITIS A IgM (test code = NON-REACTIVE 80894) HEPATITIS B CORE IgM (test code NON-REACTIVE = 4644) HEPATITIS B SURF AG (test code = NON-REACTIVE 3749) HEPATITIS C ANTIBODY (test code NON-REACTIVE = 4675) INTERPRETATION HEPATITIS A: (NOTE) (test code = 2552) INTERPRETATION HEPATITIS B: (NOTE) (test code = 76696) INTERPRETATION HEPATITIS C: (NOTE) (test code = 24608) HIV AB/AG COMBO RFLX [id number] 00:00:00 Test Item Value Reference Range Interpretation Comments HIV 1/2 4TH GEN, RFLX CONF (test NON-REACTIVE code = 3514) [id number] 00:00:00 Test Item Value Reference Range Interpretation Comments RPR RESULT (test code = NON-REACTIVE 3501) RPR TITER (test code = 3500) NOT INDIC. TITER [id number] 00:00:00 Test Item Value Reference Range Interpretation Comments RPR RESULT (test code = NON-REACTIVE 3501) RPR TITER (test code = 3500) NOT INDIC. TITER COMPREHENSIVE METABOLIC [id number] 00:00:00 Test Item Value Reference Range Interpretation Comments GLUCOSE (test code = 2217) 87 MG/DL BUN (test code = 2208) 15 MG/DL CREATININE (test code = 2214) 0.66 MG/DL eGFR AMER. (test code 134 ML/MIN/1.73 = 78678) eGFR NON- AMER. (test 115 ML/MIN/1.73 code = 28202) CALC BUN/CREAT (test code = 23 RATIO 2235) SODIUM (test code = 2231) 142 MEQ/L POTASSIUM (test code = 2228) 4.3 MEQ/L CHLORIDE (test code = 2215) 101 MEQ/L CARBON DIOXIDE (test code = 27 MEQ/L 2205) CALCIUM (test code = 2209) 9.3 MG/DL PROTEIN, TOTAL (test code = 7.8 G/DL 2228) ALBUMIN (test code = 2201) 5.1 G/DL CALC GLOBULIN (test code = 2.7 G/DL 2239) CALC A/G RATIO (test code = 1.9 RATIO 2233) BILIRUBIN, TOTAL (test code = 0.6 MG/DL 2206) ALKALINE PHOSPHATASE (test 54 U/L code = 2204) AST (test code = 2218) 21 U/L ALT (test code = 2219) 15 U/L [id number] 00:00:00 Test Item Value Reference Range Interpretation Comments TSH (test code = 2821) 3.200 UIU/ML [id number] 00:00:00 Test Item Value Reference Range Interpretation Comments TSH (test code = 2821) 3.200 UIU/ML HERPES SIMPLEX 1/2 [id number] 00:00:00 Test Item Value Reference Range Interpretation Comments HERPES SIMPLEX 1 IgG (test code = >5.00 INDEX 47371) HERPES SIMPLEX 2 IgG (test code = <0.10 INDEX 34580) CBC W/AUTO [id number] 00:00:00 Test Item Value Reference Range Interpretation Comments WBC (test code = 1001) 8.5 K/UL RBC (test code = 1002) 4.65 M/UL HEMOGLOBIN (test code = 1003) 14.2 G/DL HEMATOCRIT (test code = 1004) 41.2 % MCV (test code = 1005) 88.6 fL MCH (test code = 1006) 30.5 PG MCHC (test code = 1007) 34.5 G/DL RDW (test code = 1038) 11.6 % NEUTROPHILS (test code = 1008) 68.1 % LYMPHOCYTES (test code = 1010) 22.1 % MONOCYTES (test code = 1011) 8.0 % EOSINOPHILS (test code = 1012) 1.3 % BASOPHILS (test code = 1013) 0.5 % PLATELET COUNT (test code = 1015) 194 K/UL CBC W/AUTO [id number] 00:00:00 Test Item Value Reference Range Interpretation Comments WBC (test code = 1001) 8.5 K/UL RBC (test code = 1002) 4.65 M/UL HEMOGLOBIN (test code = 1003) 14.2 G/DL HEMATOCRIT (test code = 1004) 41.2 % MCV (test code = 1005) 88.6 fL MCH (test code = 1006) 30.5 PG MCHC (test code = 1007) 34.5 G/DL RDW (test code = 1038) 11.6 % NEUTROPHILS (test code = 1008) 68.1 % LYMPHOCYTES (test code = 1010) 22.1 % MONOCYTES (test code = 1011) 8.0 % EOSINOPHILS (test code = 1012) 1.3 % BASOPHILS (test code = 1013) 0.5 % PLATELET COUNT (test code = 1015) 194 K/UL OVA AND PARASITES WITH TRICHROME [id number] 00:00:00 Test Item Value Reference Range Interpretation Comments O AND P CONCENTRATE #1 TEST NOT PERFORMED (test code = 303729) O AND P TRICHROME #1 (test TEST NOT PERFORMED code = 998061) O AND P CONCENTRATE #2 TEST NOT PERFORMED (test code = 153727) O AND P TRICHROME #2 (test TEST NOT PERFORMED code = 271030) O AND P CONCENTRATE #3 TEST NOT PERFORMED (test code = 634709) O AND P TRICHROME #3 (test TEST NOT PERFORMED code = 020703) CULTURE, [id number] 00:00:00 Test Item Value Reference Range Interpretation Comments CULTURE, STOOL (test SPECIMEN NUMBER: code = 46333) [id number] COMPREHENSIVE METABOLIC [id number] 00:00:00 Test Item Value Reference Range Interpretation Comments GLUCOSE (test code = 2217) 74 MG/DL BUN (test code = 2208) 15 MG/DL CREATININE (test code = 2214) 0.69 MG/DL eGFR AMER. (test code 133 ML/MIN/1.73 = 26557) eGFR NON- AMER. (test 114 ML/MIN/1.73 code = 48925) CALCULATED BUN/CREAT (test 22 RATIO code = 2235) SODIUM (test code = 2231) 137 MEQ/L POTASSIUM (test code = 2228) 3.9 MEQ/L CHLORIDE (test code = 2215) 100 MEQ/L CARBON DIOXIDE (test code = 24 MEQ/L 2205) CALCIUM (test code = 2209) 10.1 MG/DL PROTEIN, TOTAL (test code = 8.2 G/DL 2229) ALBUMIN (test code = 2201) 5.1 G/DL CALCULATED GLOBULIN (test 3.1 G/DL code = 2240) CALCULATED A/G RATIO (test 1.6 RATIO code = 2234) BILIRUBIN, TOTAL (test code = 0.8 MG/DL 2207) ALKALINE PHOSPHATASE (test 55 U/L code = 2204) SGOT (AST) (test code = 2218) 17 U/L SGPT (ALT) (test code = 2219) 14 U/L CBC W/AUTO [id number] 00:00:00 Test Item Value Reference Range Interpretation Comments WBC (test code = 1001) 7.3 K/UL RBC (test code = 1002) 5.08 M/UL HEMOGLOBIN (test code = 1003) 15.4 G/DL HEMATOCRIT (test code = 1004) 44.7 % MCV (test code = 1005) 88.0 fL MCH (test code = 1006) 30.3 PG MCHC (test code = 1007) 34.5 G/DL RDW (test code = 1038) 12.5 % NEUTROPHILS (test code = 1008) 65 % LYMPHOCYTES (test code = 1010) 27 % MONOCYTES (test code = 1011) 6 % EOSINOPHILS (test code = 1012) 2 % BASOPHILS (test code = 1013) % PLATELET COUNT (test code = 1015) 266 K/UL CBC W/AUTO [id number] 00:00:00 Test Item Value Reference Range Interpretation Comments WBC (test code = 1001) 7.3 K/UL RBC (test code = 1002) 5.08 M/UL HEMOGLOBIN (test code = 1003) 15.4 G/DL HEMATOCRIT (test code = 1004) 44.7 % MCV (test code = 1005) 88.0 fL MCH (test code = 1006) 30.3 PG MCHC (test code = 1007) 34.5 G/DL RDW (test code = 1038) 12.5 % NEUTROPHILS (test code = 1008) 65 % LYMPHOCYTES (test code = 1010) 27 % MONOCYTES (test code = 1011) 6 % EOSINOPHILS (test code = 1012) 2 % BASOPHILS (test code = 1013) % PLATELET COUNT (test code = 1015) 266 K/UL [id number] 00:00:00 Test Item Value Reference Range Interpretation Comments AMYLASE (test code = 2205) 65 U/L [id number] 00:00:00 Test Item Value Reference Range Interpretation Comments LIPASE (test code = 2058) 22 U/L [id number] 00:00:00 Test Item Value Reference Range Interpretation Comments LIPASE (test code = 2057) 22 U/L
--- NOTE | 2023-01-21 18:23 | EDPHYS ---
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 - Social history:: Smoking status: Patient denies any tobacco usage or history of. Vital Signs: 17:51 BP 103 / 75; Pulse 78; Resp 16; Temp 97.8; Pulse Ox 98% ; Weight 57.15 kg; Height 5 ft. ll1 0 in. ; Pain 8/10; 17:51 Body Mass Index 24.61 (57.15 kg, 152.4 cm) ll1 17:51 Pain Scale: Adult ll1 MDM: 18:13 Patient medically screened. snw 01/21 17:54 Order name: Strep; Complete Time: 18:16 ll1 01/21 18:16 Order name: Throat Culture EDMS Administered Medications: 18:26 Not Given (left with RX): ZyrTEC - Cetirizine PO 10 mg PO once ll1 18:26 Not Given (left with RXx): Famotidine PO 20 mg PO once ll1 Disposition Summary: 01/21/23 18:22 Discharge Ordered Location: Home snw Condition: Stable snw Diagnosis - Acute pharyngitis, unspecified snw Followup: snw - With: Emergency Department - When: As needed - Reason: Worsening of condition Followup: snw - With: Private Physician - When: 2 - 3 days - Reason: Recheck today's complaints, Continuance of care, Re-evaluation by your physician Discharge Instructions: - Discharge Summary Sheet snw - Pharyngitis snw - Sore Throat snw Forms: - Medication Reconciliation Form snw - Thank You Letter snw - Antibiotic Education snw - Prescription Opioid Use snw Prescriptions: - Zyrtec 10 mg Oral Tablet - take 1 tablet by ORAL route once daily As needed; 20 tablet; Refills: 0, snw Product Selection Permitted - Zithromax Z-Joselo 250 mg Oral Tablet - take 1 tablet by ORAL route as directed for 5 days Day 1 - take two (2) tablets snw one time. Day 2, 3, 4 , 5 take one (1) tablet once daily.; 6 tablet; Refills: 0, Product Selection Permitted - Pepcid 20 mg Oral Tablet - take 1 tablet by ORAL route once daily; 20 tablet; Refills: 0, Product snw Selection Permitted Signatures: Dispatcher [employer] EDMS Kayla Young FNP-C RETAIL AREA MANAGER-Erwinw Mathieu Shin, RN RN ll1
--- NOTE | 2023-01-21 18:23 | ER ---
Nurse's Notes [facility] Name: Yanique Mcrae Age: 42 yrs Sex: Female : 1980 Arrival Date: 01/21/2023 Time: 17:28 Bed Waiting Private MD: Diagnosis: Acute pharyngitis, unspecified Presentation: 01/21 17:51 Chief complaint: Patient states: Sore throat since Sunday. Body aches and fatigue ll1 started today. Daughter diagnosed with strep recently. Coronavirus screen: Vaccine status: Patient reports being unvaccinated. Client denies travel out of the [place] in the last 14 days. fatigue, muscle pain, sore throat, Client presents with at least one sign or symptom that may indicate coronavirus-19. Standard/surgical mask placed on the client. Ebola Screen: Patient denies travel to an Ebola-affected area in the 21 days before illness onset. Initial Sepsis Screen: Does the patient meet any 2 criteria? No. Patient's initial sepsis screen is negative. Does the patient have a suspected source of infection? No. Patient's initial sepsis screen is negative. Risk Assessment: Do you want to hurt yourself or someone else? Patient reports no desire to harm self or others. Onset of symptoms was January 19, 2023. 17:51 Method Of Arrival: Ambulatory ll1 17:51 Acuity: ANNE 4 ll1 Triage Assessment: 17:51 General: Appears uncomfortable, Behavior is calm, cooperative, appropriate for age. ll1 General: Reports fatigue for. Pain: Complains of pain in throat Quality of pain is described as aching. EENT: Reports pain when swallowing. 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 - Social history:: Smoking status: Patient denies any tobacco usage or history of. Screenin:18 [facility] ED Fall Risk Assessment (Adult) Score/Fall Risk Level 0 - 2 = Low Risk ll1 Oriented to surroundings, Maintained a safe environment, Educated pt \T\ family on fall prevention, incl call for assistance when getting out of bed, Hourly rounding (assess needs \T\ fall precautionary measures) done. Abuse screen: Denies threats or abuse. Nutritional screening: No deficits noted. Tuberculosis screening: No symptoms or risk factors identified. Assessment: 18:18 EENT: Throat is pink bilaterally. ll1 18:18 Respiratory: Airway is patent Respiratory effort is even, unlabored, Breath sounds are ll1 clear bilaterally. 18:26 Reassessment: No changes from previously documented assessment. Patient and/or family ll1 updated on plan of care and expected duration. Pain level reassessed. Patient is alert, oriented x 3, equal unlabored respirations, skin warm/dry/pink. Vital Signs: 17:51 BP 103 / 75; Pulse 78; Resp 16; Temp 97.8; Pulse Ox 98% ; Weight 57.15 kg; Height 5 ft. ll1 0 in. ; Pain 8/10; 17:51 Body Mass Index 24.61 (57.15 kg, 152.4 cm) ll1 17:51 Pain Scale: Adult ll1 ED Course: 17:29 Patient arrived in ED. am2 17:42 Kayla Young FNP-Adarsh [facility] snw 17:42 Jarvis Patel MD is Attending Physician. snw 17:53 Triage completed. ll1 17:57 Strep Sent. cm10 18:17 Arm band placed on. ll1 18:18 Patient has correct armband on for positive identification. Bed in low position. Call ll1 light in reach. Cardiac monitoring not applicable on this patient. 18:26 No provider procedures requiring assistance completed. Patient did not have IV access ll1 during this emergency room visit. Administered Medications: 18:26 Not Given (left with RX): ZyrTEC - Cetirizine PO 10 mg PO once ll1 18:26 Not Given (left with RXx): Famotidine PO 20 mg PO once ll1 Medication: 18:18 VIS not applicable for this client. ll1 Outcome: 18:22 Discharge ordered by . snw 18:26 Discharged to home ambulatory. ll1 18:26 Condition: stable 18:26 Discharge instructions given to patient, Instructed on discharge instructions, follow up and referral plans. medication usage, Demonstrated understanding of instructions, follow-up care, medications, Prescriptions given X 3. 18:27 Patient left the ED. ll1 Signatures: Kayla Young, ENVIRONMENTAL PROGRAM MANAGER-C ENVIRONMENTAL PROGRAM MANAGER-Csnw Charity Siddiqui am2 Mathieu Shin, RN RN ll1 Chely Lancaster RN RN cm10
[2023-01-21 18:47] VITALS: BP 103/75; TEMP 97.8; O2SAT 98
== END 2023-01-21 18:27 | disposition home or self-care (01) ==
LOC: ER 17:28
DX: J02.9 Acute pharyngitis, unspecified (principal)
CPT/HCPCS: 87070; 87081; 99283

== ENCOUNTER 2023-04-12 20:03 | Emergency (ER) | payer OTHER ==
--- OUTSIDE RECORDS SUMMARY | 2023-04-12 20:09 | XMS REPORT | Continuity of Care Document ---
:1980 Author Organization [facility] t Address [address] [facility] [address] [place] [address] Care Team Providers Name Role Phone Elis GONCALVES, Eli Primary Care Physician [phone] Tushar Greco DO Attending Clinician Cordelia Taylor Attending Clinician CORDELIA FREGOSO Attending Clinician Unavailable Hue Jean Attending Clinician [phone] Payers Payer Name Policy Type Policy Number Effective Date Expiration Date S ource Problems Condition Condition Condition Status Onset Resolution Last Treating Co mments Source Name Details Category Date Date Treatment Clinician Date Routine Routine Disease Active Univers 08-25 [place] [address] [place] [address] S/P tubal S/P tubal Disease Active Uni vers ligation ligation 08-04 ity of 00:00: [address] Labor and Labor and Disease Active Uni vers delivery, delivery, 07-31 [place] [facility] [place] 35 weeks 35 weeks Disease Active Unive rs gestation gestation 07-31 ity of of of 00:00: [place] 00 [facility] IUGR IUGR Disease Active 2018-07 Univers [...] 00:00: [place] antepartum antepartum 00 m Mo dical Branch Previous Previous Disease Active Unive [...] 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 Utility Allergies, Adverse Reactions, Alerts Allergy Allergy Status Severity Reaction(s) Onset Inactive Treating Comm ents Source Name Type Date Date Clinician NO KNOWN Drug Active Univers ALLERGIE Class ity of S [facility] Social History Social Habit Start Date Stop Date Quantity Comments Source Alcohol intake 2019-09-15 2019-09-15 Current drinker Unive rsity of 00:00:00 00:00:00 of alcohol [facility] (finding) Dolores Tobacco use and 2019-09-15 2019-09-15 Never used Universit y of exposure 00:00:00 00:00:00 [facility] History SDOH 2019-08-01 2019-08-01 11 University o f Education 00:00:00 00:00:00 [facility] Alcohol Comment 2013-11-28 2013-11-28 socially prior to Un iversity of 00:00:00 00:00:00 [facility] Sex Ass[birth year] At [birth year] Universit y of 00:00:00 00:00:00 [facility] Smoking Status Start Date Stop Date Source Never smoker [facility] Branch Medications Ordered Filled Start Stop [...] it y of mg tablet 16:06: (two) [place] 38 times Medical daily. Branch famotidine 2019-0 Yes 20mg Take 20 mg U nivers (PEPCID) 20 2-17 by mouth 2 it y of mg tablet 16:06: (two) [place] 38 times Medical daily. Branch famotidine 2019-0 Yes 20mg Take 20 mg U nivers (PEPCID) 20 2-17 by mouth 2 it y of mg tablet 16:06: (two) [place] 38 times Medical daily. Branch ibuprofen 2019-0 Yes [id number] 800mg Take 1 Univers 800 mg 1-06 tablet by ity of tablet 00:00: mouth [place] 00 every 6 Medical (six) Branch hours as needed for Pain (scale 4-6). HYDROcodone 2019-0 Yes [id number] 1{tbl} Take 1 Univers -acetaminop 1-06 tablet by ity of hen 5-325 00:00: mouth [place] mg tablet 00 every 6 Medical (six) Branch hours as needed for Pain (scale 4-6). 2020-0 Yes [id number] 1{tbl} Take 1 Univers vitamin 1-06 tablet by ity of w/FA tablet 00:00: mouth [place] 00 daily. Medical Branch docusate 2020-0 Yes [id number] 240mg Take 1 U nivers calcium 240 1-06 capsule by it y of mg capsule 00:00: mouth once [place] 00 daily as Medical needed for Branch Constipati on. ferrous 2020-0 Yes [id number] 325mg Take 1 Un everardo sulfate 325 1-06 tablet by ity of mg (65 mg 00:00: mouth 2 [place] iron) 00 (two) Medical tablet times Branch daily. ibuprofen 2020-0 Yes [id number] 600mg Take 1 Univers 600 mg 1-06 tablet by ity of tablet 00:00: mouth [place] 00 every 6 Medical (six) Branch hours as needed (Pain). Take with food or milk. metroNIDAZO 2020-0 Yes [id number] 500mg Take 1 Univers LE (FLAGYL) 1-06 tablet by ity of 500 mg 00:00: mouth 2 [place] tablet 00 (two) Medical times Branch daily. ibuprofen 2020-0 Yes [id number] 800mg Take 1 Univers 800 mg 1-06 tablet by ity of tablet 00:00: mouth [place] 00 every 6 Medical (six) Branch hours as needed for Pain (scale 4-6). HYDROcodone 2020-0 Yes [id number] 1{tbl} Take 1 Univers -acetaminop 1-06 tablet by ity of hen 5-325 00:00: mouth [place] mg tablet 00 every 6 Medical (six) Branch hours as needed for Pain (scale 4-6). 2020-0 Yes [id number] 1{tbl} Take 1 Univers vitamin 1-06 tablet by ity of w/FA tablet 00:00: mouth [place] 00 daily. Medical Branch docusate 2020-0 Yes [id number] 240mg Take 1 U nivers calcium 240 1-06 capsule by it y of mg capsule 00:00: mouth once [place] 00 daily as Medical needed for Branch Constipati on. ferrous 2020-0 Yes [id number] 325mg Take 1 Un everardo sulfate 325 1-06 tablet by ity of mg (65 mg 00:00: mouth 2 [place] iron) 00 (two) Medical tablet times Branch daily. ibuprofen 2020-0 Yes [id number] 600mg Take 1 Univers 600 mg 1-06 tablet by ity of tablet 00:00: mouth [place] 00 every 6 Medical (six) Branch hours as needed (Pain). Take with food or milk. metroNIDAZO 2020-0 Yes [id number] 500mg Take 1 Univers LE (FLAGYL) 1-06 tablet by ity of 500 mg 00:00: mouth 2 [place] tablet 00 (two) Medical times Branch daily. ibuprofen 2020-0 Yes [id number] 800mg Take 1 Univers 800 mg 1-06 tablet by ity of tablet 00:00: mouth [place] 00 every 6 Medical (six) Branch hours as needed for Pain (scale 4-6). HYDROcodone 2020-0 Yes [id number] 1{tbl} Take 1 Univers -acetaminop 1-06 tablet by ity of hen 5-325 00:00: mouth [place] mg tablet 00 every 6 Medical (six) Branch hours as needed for Pain (scale 4-6). 2020-0 Yes [id number] 1{tbl} Take 1 Univers vitamin 1-06 tablet by ity of w/FA tablet 00:00: mouth [place] 00 daily. Medical Branch docusate 2020-0 Yes [id number] 240mg Take 1 U nivers calcium 240 1-06 capsule by it y of mg capsule 00:00: mouth once [place] 00 daily as Medical needed for Branch Constipati on. ferrous 2020-0 Yes [id number] 325mg Take 1 Un everardo sulfate 325 1-06 tablet by ity of mg (65 mg 00:00: mouth 2 [place] iron) 00 (two) Medical tablet times Branch daily. ibuprofen 2020-0 Yes [id number] 600mg Take 1 Univers 600 mg 1-06 tablet by ity of tablet 00:00: mouth [place] 00 every 6 Medical (six) Branch hours as needed (Pain). Take with food or milk. metroNIDAZO 2020-0 Yes [id number] 500mg Take 1 Univers LE (FLAGYL) 1-06 tablet by ity of 500 mg 00:00: mouth 2 [place] tablet 00 (two) Medical times Branch daily. ibuprofen 2020-0 Yes [id number] 800mg Take 1 Univers 800 mg 1-06 tablet by ity of tablet 00:00: mouth [place] 00 every 6 Medical (six) Branch hours as needed for Pain (scale 4-6). HYDROcodone 2020-0 Yes [id number] 1{tbl} Take 1 Univers -acetaminop 1-06 tablet by ity of hen 5-325 00:00: mouth [place] mg tablet 00 every 6 Medical (six) Branch hours as needed for Pain (scale 4-6). 2020-0 Yes [id number] 1{tbl} Take 1 Univers vitamin 1-06 tablet by ity of w/FA tablet 00:00: mouth [place] 00 daily. Medical Branch docusate 2020-0 Yes [id number] 240mg Take 1 U nivers calcium 240 1-06 capsule by it y of mg capsule 00:00: mouth once [place] 00 daily as Medical needed for Branch Constipati on. ferrous 2020-0 Yes [id number] 325mg Take 1 Un everardo sulfate 325 1-06 tablet by ity of mg (65 mg 00:00: mouth 2 [place] iron) 00 (two) Medical tablet times Branch daily. ibuprofen 2020-0 Yes [id number] 600mg Take 1 Univers 600 mg 1-06 tablet by ity of tablet 00:00: mouth [place] 00 every 6 Medical (six) Branch hours as needed (Pain). Take with food or milk. metroNIDAZO 2020-0 Yes [id number] 500mg Take 1 Univers LE (FLAGYL) 1-06 tablet by ity of 500 mg 00:00: mouth 2 [place] tablet 00 (two) Medical times Branch daily. ibuprofen 2020-0 Yes [id number] 800mg Take 1 Univers 800 mg 1-06 tablet by ity of tablet 00:00: mouth [place] 00 every 6 Medical (six) Branch hours as needed for Pain (scale 4-6). HYDROcodone 2020-0 Yes [id number] 1{tbl} Take 1 Univers -acetaminop 1-06 tablet by ity of hen 5-325 00:00: mouth [place] mg tablet 00 every 6 Medical (six) Branch hours as needed for Pain (scale 4-6). 2020-0 Yes [id number] 1{tbl} Take 1 Univers vitamin 1-06 tablet by ity of w/FA tablet 00:00: mouth [place] 00 daily. Medical Branch docusate 2020-0 Yes [id number] 240mg Take 1 U nivers calcium 240 1-06 capsule by it y of mg capsule 00:00: mouth once [place] 00 daily as Medical needed for Branch Constipati on. ferrous 2020-0 Yes [id number] 325mg Take 1 Un everardo sulfate 325 1-06 tablet by ity of mg (65 mg 00:00: mouth 2 [place] iron) 00 (two) Medical tablet times Branch daily. ibuprofen 2020-0 Yes [id number] 600mg Take 1 Univers 600 mg 1-06 tablet by ity of tablet 00:00: mouth [place] 00 every 6 Medical (six) Branch hours as needed (Pain). Take with food or milk. metroNIDAZO 2020-0 Yes [id number] 500mg Take 1 Univers LE (FLAGYL) 1-06 tablet by ity of 500 mg 00:00: mouth 2 [place] tablet 00 (two) Medical times [place] daily. Bactrim DS No 1mg 800 mg-160 [...] 00:00:00 TDAP 2019-06-10 Completed University of 00:00:00 [facility] Tdap 2019-06-10 Completed University of 00:00:00 [facility] Tdap 2019-06-10 Completed University of 00:00:00 [facility] Tdap 2019-06-10 Completed University of 00:00:00 [facility] Tdap 2019-06-10 Completed University of 00:00:00 [facility] MMR 2018-03-21 Completed University of 00:00:00 [facility] MMR 2018-03-21 Completed University of 00:00:00 [facility] MMR 2018-03-21 Completed University of 00:00:00 [facility] MMR 2018-03-21 Completed University of 00:00:00 [facility] MMR 2018-03-21 Completed University of 00:00:00 [facility] TDAP 2018-01-02 Completed University of 00:00:00 [facility] Tdap 2018-01-02 Completed University of 00:00:00 [facility] Tdap 2018-01-02 Completed University of 00:00:00 [facility] Tdap 2018-01-02 Completed University of 00:00:00 [facility] Tdap 2018-01-02 Completed University of 00:00:00 [place] [facility] TDAP 2015-11-23 Completed University of 00:00:00 [place] [facility] Tdap 2015-11-23 Completed University of 00:00:00 [place] [facility] Tdap 2015-11-23 Completed University of 00:00:00 [place] [facility] Tdap 2015-11-23 Completed University of 00:00:00 [place] [facility] Tdap 2015-11-23 Completed University of 00:00:00 [facility] Vital Signs Vital Name Observation Time Observation Value Comments Source Systolic blood 2019-09-15 15:53:00 97 mm[Hg] Univer sity of pressure [facility] Diastolic blood 2019-09-15 15:53:00 67 mm[Hg] Unive rsity of pressure [facility] Heart rate 2019-09-15 15:53:00 64 /min Universi ty of [facility] Body temperature 2019-09-15 15:53:00 36.39 Chastity Univ ersity of [facility] Respiratory rate 2019-09-15 15:53:00 16 /min Univ ersity of [facility] Body height 2019-09-15 15:53:00 154.9 cm Universi ty of [place] [facility] [place] Body weight 2019-09-15 15:53:00 54.432 kg Universi ty of [place] [facility] BMI 2019-09-15 15:53:00 22.67 kg/m2 Universi ty of [facility] Systolic blood 2019-08-25 15:28:00 110 mm[Hg] Univer sity of pressure [facility] Diastolic blood 2019-08-25 15:28:00 79 mm[Hg] Unive rsity of pressure [facility] Heart rate 2019-08-25 15:28:00 72 /min Universi ty of [facility] Branch Body temperature 2019-08-25 15:28:00 36.5 Chastity Univ ersity of [facility] Branch Respiratory rate 2019-08-25 15:28:00 16 /min Univ ersity of [facility] Body height 2019-08-25 15:28:00 154.9 cm Universi ty of [place] [facility] [place] Body weight 2019-08-25 15:28:00 56.87 kg Universi ty of [place] [facility] BMI 2019-08-25 15:28:00 23.69 kg/m2 Universi ty of [facility] BP Systolic 2022-02-21 13:35:00 103 mm[Hg] BP [...] /min Respiratory Rate 2020-04-22 14:15:00 17.00 /min Respiratory Rate 2019-08-27 17:10:00 20.00 /min BP Systolic 2019-08-27 17:10:00 102 mm[Hg] BP Diastolic 2019-08-27 17:10:00 72 mm[Hg] Weight Measured 2019-08-27 17:10:00 123.80 pounds Height Measured 2019-08-27 17:10:00 61.00 inches Body Temperature 2019-08-27 17:10:00 97.90 degrees Heart Rate 2019-08-27 17:10:00 78.00 /min BP Systolic 2017-06-05 11:18:00 95 mm[Hg] BP Diastolic 2017-06-05 11:18:00 67 mm[Hg] Weight Measured 2017-06-05 11:18:00 112.80 pounds Height Measured 2017-06-05 11:18:00 61.00 inches Body Temperature 2017-06-05 11:18:00 97.90 degrees Heart Rate 2017-06-05 11:18:00 69.00 /min Respiratory Rate 2017-06-05 11:18:00 BP Systolic 2016-09-28 13:53:00 115 mm[Hg] BP [...] Goal Plan of Care Note [code = 07965-9] Goal Plan of Care Note [code = 97160-7] Goal Plan of Care Note [code = 15082-2] Goal Plan of Care Note [code = 62436-9] Goal Plan of Care Note [code = 19715-5] Goal Plan of Care Note [code = 68888-1] Goal Plan of Care Note [code = 20244-6] Goal Plan of Care Note [code = 14199-8] Goal Plan of Care Note [code = 03378-0] Goal Plan of Care Note [code = 30800-0] Goal Plan of Care Note [code = 61422-3] Goal Plan of Care Note [code = 00756-9] Goal Plan of Care Note [code = 73731-9] Goal Plan of Care Note [code = 71674-6] Goal Plan of Care Note [code = 02876-5] Goal Plan of Care Note [code = 33274-5] Goal Plan of Care Note [code = 03975-5] Goal Plan of Care Note [code = 24454-4] Encounters Start End Encounter Admission Attending Care Care Encounter Source Date/Time Date/Time Type Type Clinicians Facility Department ID 2023-03-31 2023-03-31 Outpatient PB AMBRIZ [id number] Andi 10:12:53 10:12:53 0902 F Yvan 2022-07-06 2022-07-06 Outpatient PB AMBRIZ [id number] Andi 17:09:15 17:09:15 1208 F Yvan 2022-02-21 2022-02-21 Outpatient [id number] 00:00:00 00:00:00 Visit [id number] 2020-10-18 2020-10-18 [facility] [id number] Univers 00:00:00 00:00:00 Outreach Tushar PRIMARY [id number] i ty of [facility] 4.2.7.2.686 [place] [id number] [address] 2019-09-15 2019-09-15 Office [facility] [id number] Univers 09:38:32 10:23:11 Visit Cordelia Queen [employer] [id number] ity of [facility] 4.2.7.2.686 [place] as MATERNAL [phone] [facility] [address] [place] [address] 2019-09-15 2019-09-15 Outpatient R [facility] [id number] Univers 09:30:00 10:23:11 CORDELIA mansfieldy o f [facility] 2019-08-25 2019-08-25 [facility]ine [facility] [id number] Univers 09:15:24 10:15:07 Hue C [employer] [id number] ity of Visit [facility] 4.2.7.2.686 [place] as MATERNAL [id number] [address] 2019-08-22 2019-08-22 Telephone [facility] [id number] Univers 00:00:00 00:00:00 Mistyedmundo Queen [employer] [id number] ity of [facility] 4.2.7.2.686 [place] as MATERNAL [phone] [facility] & [address] Results Test Description Test Time Test Comments Results Result Comments Source HIV 1/2 4TH GEN, RFLX CONF 2023-04-04 01:49:39 Test Item Value Reference Range Interpretation Comme nts HIV 1/2 4TH GEN, RFLX CONF (test code = 3514) NON-REACTIVE NON-REAC TIVE [id number] 01:43:31 Test Item Value Reference Range Interpretation Comments RPR RESULT (test code = NON-REACTIVE NON-REACTIVE 3501) RPR TITER (test code = 3500) NOT INDIC. TITER NOT INDIC. CT/NG, NAAT, [id number] 16:02:27 Test Item Value Reference Range Interpretation Comments CHLAMYDIA, NAAT, NEGATIVE NEGATIVE Testing is performed with URINE (test code Inez JEMAL 6800/8800 = 11833) systems usingre al-time polymerase felicita n reaction (PCR) method. A negative result does not exclude low level infection , specimensamplin g error, or collection erro r. GONORRHEA, NAAT, NEGATIVE NEGATIVE Testing is performed with URINE (test code Inez JEMAL 6800/8800 = 01716) systems usingre al-time polymerase felicita n reaction (PCR) method. A negative result does not exclude low level infection , specimensamplin g error, or collection erro r. UNLESS OTHERWISE INDIC ATED, ALL TESTING PERFORM ED AT [facility]OL [place] [address] LABORATORY DIRE CTOR: ROBERT FORTUNE M.D. CLIA NUMBER [id number] CAP ACCREDITATION N O. [id number] PAP TEST, THINPREP, [id number] 23:06:19 Test Item Value Reference Interpretation Comments Range SOURCE: (test code = Cervical/Endoce 8001) rvical SLIDES: (test code = 1 8011) LMP: (test code = NOT GIVEN 8021) SPECIMEN ADEQUACY: (NOTE) Satisfac tory for (test code = 90703) evaluati on. Endocervical cells/transform ation zone component present. INTERPRETATION: NILM/NO EPITH. (test code = 76830) ABNORMALITY;SEE ----- BELOW ------ ------- NEG ATIVE FOR INTRAEPITHE LIAL LESION OR MALIG BRYSON Reactive ce llular changes present (NILM).-------- ------ ------ ------ ASSEMBLER FINAL: Shayne (test code = 8101) LIDIA Bassett(ASCP) PATHOLOGIST Oralia Rush INTERPRETATION BY: (test code = 8122) LOCATION: (test code (NOTE) Specime ns processed = 09955) and interpreted at [facility] , [address] [place], [place] [address], Phone: , CLIA: [id number] CPT: (test code = (NOTE) 32074, 881 41 UNLESS 8140) OTHERWISE INDIC ATED, COMPUTER AIDED AND CYTOTECHNOLOGIS T SCREENING PERFO RMED. The Pap test is a screening test with an inherent, bu t low probability of error. Your patient sh ould be reminded to consult you immediately if she experiences any suspicious sign s or symptoms, regar dless of her Pap test result. An alte rnate report format containing imag es or consolidated pr ior Pap history is available as applicable. HPV HIGH RISK WITH GENOTYPE, [id number] 13:49:04 Test Item Value Reference Range Interpretation Comments HPV HIGH RISK INTERP NEGATIVE NEGATIVE (test code = 48454) HPV 16 (test code = NEGATIVE 48051) HPV 18 (test code = NEGATIVE 80633) HPV, HR, OTHER NEGATIVE Testing met hodology is GENOTYPES (test code real-ti me PCR utilizing = 94120) hydrolysis prob es with the [employer] Jemal 4800 system. The cony t individually de tects genotypes 16 an d 18, as well as the oth er 12 high risk type s (31,33,35,39,45 ,51,52,56 ,58,59,66,68). The expected result is negative. A neg ative result does not rule out the presence of HPV not included in the genotype set, a low leve l of infection or sp ecimen sampling error. UNLESS OTHERWISE INDIC ATED, ALL TESTING PERFORM ED AT CLINICAL PATHOL Honey, [facility]. [address] [place] [address] LABORATORY DIR JESSIE: ROBERT FORTUNE M.D. CLIA NUMBER [id number] [place] [id number]/NG, NAAT, [id number] 07:23:03 Test Item Value Reference Range Interpretation Comments GONORRHEA, NAAT NEGATIVE NEGATIVE IMPORT ANT NOTICE: SEE (test code = [place] [address]) [email or web address] SxbbmsUrineKit Note: Assay methodology is nucleic acid amplification b y industrial economist m ediated amplification ( TMA) utilizing the A ptima Combo 2 Assay. CHLAMYDIA, NAAT NEGATIVE NEGATIVE IMPORT ANT NOTICE: SEE (test code = [place] [address]) [email or web address] CMS Global TechnologiesobasUrineKit Note: Assay methodology is nucleic acid amplification b y industrial economist m ediated amplification ( TMA) utilizing the A ptima Combo 2 Assay. VAGINAL PATHOGENS DNA [id number] 17:04:02 Test Item Value Reference Range Interpretation Comments LAVON SPECIES (test NEGATIVE NEGATIVE code = ) G. VAGINALIS (test NEGATIVE NEGATIVE code = ) T. VAGINALIS (test NEGATIVE NEGATIVE UNLESS O THERWISE code = ) INDICATED, ALL TESTING PERFORMED [facility] PATHOLOGY FOR[facility], [facility]. [address] [place] [address] LABORATORY DIRE CTOR: ORALIA QURESHI M.D. CLIA NUMBER [id number] [place] [id number] HIV 1/2 4TH GEN, RFLX [id number] 06:34:55 Test Item Value Reference Range Interpretation Comments HIV 1/2 4TH GEN, RFLX CONF (test NON-REACTIVE NON-REACTIVE code = 3514) HEPATITIS PANEL, [id number] 06:34:55 Test Item Value Reference Range Interpretation Comments HEPATITIS A IgM (test NON-REACTIVE NON-REACTIVE code = 97996) HEPATITIS B CORE IgM NON-REACTIVE NON-REACTIVE (test code = 4644) HEPATITIS B SURF AG NON-REACTIVE NON-REACTIVE (test code = 2739) HEPATITIS C ANTIBODY NON-REACTIVE NON-REACTIVE (test code = 4675) INTERPRETATION (NOTE) Hepatitis A HEPATITIS A: (test code sero logy shows no = 0842) evidence of acu te hepatitis A. INTERPRETATION (NOTE) Hepatitis B HEPATITIS B: (test code sero logy shows no = 84168) evidence of acu te hepatitis B and no indication of exposure to hepatitis B vir us in the previous lulu eight months. INTERPRETATION (NOTE) Hepatitis C HEPATITIS C: (test code sero logy shows no = 81641) evidence of exposure to hepatitisC viru s at this time. I t can take up to 12 months after exposure tothe hepatitis C vir us for antibodies to become detectab le in the blood in certain patient s. [id number] 03:18:37 Test Item Value Reference Range Interpretation Comments RPR RESULT (test code = NON-REACTIVE NON-REACTIVE 3501) RPR TITER (test code = 3500) NOT INDIC. TITER NOT INDIC. CBC W/AUTO [id number] 00:00:00 Test Item Value Reference Range Interpretation [...] code = 1015) 233 K/UL CBC W/AUTO [id number] 00:00:00 Test Item Value Reference Range Interpretation [...] 05/19/17 SPECIMEN ADEQUACY: (test (NOTE) code = 77121) INTERPRETATION: (test NO EPITHELIAL code = 04697) ABNORMALITY SEE BELOW ASSEMBLER FINAL: (test VIKTOR code = 8101) LIDIA PERKINS(ASCP) PATHOLOGIST Freddie Clarke, INTERPRETATION BY: (test M.D. code = 8122) LOCATION: (test code = (NOTE) 54807) CPT: (test code = 8140) (NOTE) CT/NG, TMA, THINPREP [ADDED]2017-06-08 00:00:00 Test Item Value Reference Range Interpretation Comments GONORRHEA, TMA (test code = 25875) NEGATIVE CHLAMYDIA, TMA (test code = 75023) NEGATIVE HPV HIGH RISK WITH GENOTYPE, TP [ADDED]2017-06-07 00:00:00 Test Item Value Reference Range Interpretation Comments HPV HIGH RISK INTERP (test code = NEGATIVE 10106) HPV 16 (test code = 62950) NEGATIVE HPV 18 (test code = 45964) NEGATIVE HPV, HR, OTHER GENOTYPES (test code NEGATIVE = 70950) CBC W/AUTO [id number] 00:00:00 Test Item Value Reference Range Interpretation [...] code = 1015) 220 K/UL CBC W/AUTO [id number] 00:00:00 Test Item Value Reference Range Interpretation [...] code = 1015) 220 K/UL ACUTE HEPATITIS [id number] 00:00:00 Test Item Value Reference Range Interpretation Comments HEPATITIS A IgM (test code = NON-REACTIVE 44098) HEPATITIS B CORE IgM (test code NON-REACTIVE = 4644) HEPATITIS B SURF AG (test code = NON-REACTIVE 9149) HEPATITIS C ANTIBODY (test code NON-REACTIVE = 4675) INTERPRETATION HEPATITIS A: (NOTE) (test code = 2552) INTERPRETATION HEPATITIS B: (NOTE) (test code = 20656) INTERPRETATION HEPATITIS C: (NOTE) (test code = 60046) HIV AB/AG COMBO RFLX [id number] 00:00:00 Test Item Value Reference Range Interpretation Comments HIV 1/2 4TH GEN, RFLX CONF (test NON-REACTIVE code = 3514) [id number] 00:00:00 Test Item Value Reference Range Interpretation Comments RPR RESULT (test code = NON-REACTIVE 3501) RPR TITER (test code = 3500) NOT INDIC. TITER [id number] 00:00:00 Test Item Value Reference Range Interpretation Comments RPR RESULT (test code = NON-REACTIVE 3501) RPR TITER (test code = 3500) NOT INDIC. TITER COMPREHENSIVE METABOLIC [id number] 00:00:00 Test Item Value Reference Range Interpretation Comments GLUCOSE (test code = 2217) 87 MG/DL BUN (test code = 2208) 15 MG/DL CREATININE (test code = 2214) 0.66 MG/DL eGFR AMER. (test code 134 ML/MIN/1.73 = 73276) eGFR NON- AMER. (test 115 ML/MIN/1.73 code = 88869) CALC BUN/CREAT (test code = 23 RATIO 2235) SODIUM (test code = 2231) 142 MEQ/L POTASSIUM (test code = 2228) 4.3 MEQ/L CHLORIDE (test code = 2215) 101 MEQ/L CARBON DIOXIDE (test code = 27 MEQ/L 220) CALCIUM (test code = 2209) 9.3 MG/DL [...] ALT (test code = 2219) 15 U/L [id number] 00:00:00 Test Item Value Reference Range Interpretation Comments TSH (test code = 2821) 3.200 UIU/ML [id number] 00:00:00 Test Item Value Reference Range Interpretation Comments TSH (test code = 2821) 3.200 UIU/ML HERPES SIMPLEX 1/2 [id number] 00:00:00 Test Item Value Reference Range Interpretation Comments HERPES SIMPLEX 1 IgG (test code = >5.00 INDEX 25055) HERPES SIMPLEX 2 IgG (test code = <0.10 INDEX 58481) CBC W/AUTO [id number] 00:00:00 Test Item Value Reference Range Interpretation [...] code = 1015) 194 K/UL CBC W/AUTO [id number] 00:00:00 Test Item Value Reference Range Interpretation [...] 194 K/UL OVA AND PARASITES WITH TRICHROME [id number] 00:00:00 Test Item Value Reference Range Interpretation Comments O AND P CONCENTRATE #1 TEST NOT PERFORMED (test code = 170001) O AND P TRICHROME #1 (test TEST NOT PERFORMED code = 409285) O AND P CONCENTRATE #2 TEST NOT PERFORMED (test code = 084452) O AND P TRICHROME #2 (test TEST NOT PERFORMED code = 515583) O AND P CONCENTRATE #3 TEST NOT PERFORMED (test code = 374710) O AND P TRICHROME #3 (test TEST NOT PERFORMED code = 542946) CULTURE, [id number] 00:00:00 Test Item Value Reference Range Interpretation Comments CULTURE, STOOL (test SPECIMEN NUMBER: code = 04038) [id number] COMPREHENSIVE METABOLIC [id number] 00:00:00 Test Item Value Reference Range Interpretation Comments GLUCOSE (test code = 2217) 74 MG/DL BUN (test code = 2208) 15 MG/DL CREATININE (test code = 2214) 0.69 MG/DL eGFR AMER. (test code 133 ML/MIN/1.73 = 28932) eGFR NON- AMER. (test 114 ML/MIN/1.73 code = 50924) CALCULATED BUN/CREAT (test 22 RATIO code = 2235) SODIUM (test code = 2231) 137 MEQ/L POTASSIUM (test code = 2228) 3.9 MEQ/L CHLORIDE (test code = 2215) 100 MEQ/L CARBON DIOXIDE (test code = 24 MEQ/L 2205) CALCIUM (test code = 2209) 10.1 MG/DL PROTEIN, TOTAL (test code = 8.2 G/DL 2228) ALBUMIN (test code = 2201) 5.1 G/DL CALCULATED GLOBULIN (test 3.1 G/DL code = 2240) CALCULATED A/G RATIO (test 1.6 RATIO code = 2234) BILIRUBIN, TOTAL (test code = 0.8 MG/DL 2206) ALKALINE PHOSPHATASE (test 55 U/L code = 220) SGOT (AST) (test code = 2218) 17 U/L SGPT (ALT) (test code = 2219) 14 U/L CBC W/AUTO [id number] 00:00:00 Test Item Value Reference Range Interpretation [...] code = 1015) 266 K/UL CBC W/AUTO [id number] 00:00:00 Test Item Value Reference Range Interpretation [...] COUNT (test code = 1015) 266 K/UL [id number] 00:00:00 Test Item Value Reference Range Interpretation Comments AMYLASE (test code = 2205) 65 U/L [id number] 00:00:00 Test Item Value Reference Range Interpretation Comments LIPASE (test code = 2057) 22 U/L [id number] 00:00:00 Test Item Value Reference Range Interpretation Comments LIPASE (test code = 2057) 22 U/L
[2023-04-12] MEDS ORDERED: ONDANSETRON 4 MG (ODT) TAB ONE (21:07)
--- NOTE | 2023-04-12 22:30 | ER ---
Nurse's Notes [facility] Name: Yanique Mcrae Age: 42 yrs Sex: Female : 1980 Arrival Date: 04/12/2023 Time: 20:03 Bed DIS6 Private MD: Diagnosis: Nausea with vomiting, unspecified;Viral infection, unspecified Presentation: 04/12 20:42 Chief complaint: Patient states: Pt reports that they all ate a pulled pork meal last kb3 night and woke up this morning with N/V/D/abdominal cramping. Mom reports her symptoms began around 1000 this morning and includes intermittent abdominal cramping nausea and vomiting. Coronavirus screen: Client denies travel out of the [place] in the last 14 days. Ebola Screen: Patient negative for fever greater than or equal to 101.5 degrees Fahrenheit, and additional compatible Ebola Virus Disease symptoms Patient denies exposure to infectious person. Patient denies travel to an Ebola-affected area in the 21 days before illness onset. Initial Sepsis Screen: Does the patient meet any 2 criteria? No. Patient's initial sepsis screen is negative. Does the patient have a suspected source of infection? No. Patient's initial sepsis screen is negative. Risk Assessment: Do you want to hurt yourself or someone else? Patient reports no desire to harm self or others. Onset of symptoms was April 12, 2023 at 08:00. 20:42 Method Of Arrival: Ambulatory kb3 20:42 Acuity: ANNE 3 kb3 Triage Assessment: 20:45 General: Appears in no apparent distress. Behavior is calm, cooperative. Pain: kb3 Complains of pain in abdomen Pain does not radiate. Pain currently is 5 out of 10 on a pain scale. Quality of pain is described as crampy. GI: Reports lower abdominal pain, upper abdominal pain, cramping, diarrhea, nausea, vomiting. Historical: - Allergies: 20:45 No Known Allergies; kb3 - Home Meds: 20:45 None [Active]; kb3 - PMHx: 20:45 H Pylori; kb3 - PSHx: 20:45 Appendectomy; section; tubal; kb3 - Immunization history:: Adult Immunizations up to date. - Social history:: Smoking status: Patient denies any tobacco usage or history of. Screenin:[facility] Risk Assessment (Adult) History of falling in the last 3 months, kb3 including since admission No falls in past 3 months (0 pts). Abuse screen: Denies threats or abuse. Denies injuries from another. Nutritional screening: No deficits noted. Tuberculosis screening: No symptoms or risk factors identified. Assessment: 20:30 General: Appears See triage note. kb3 Vital Signs: 20:40 BP 100 / 75; Pulse 78; Resp 18; Temp 98.5(TE); Pulse Ox 98% on R/A; Weight 56.7 kg; oe Height 5 ft. 1 in. ; 23:00 BP 110 / 75; Pulse 75; Resp 18; Temp 98.9; Pulse Ox 100% ; kb3 20:40 Body Mass Index 23.62 (56.70 kg, 154.94 cm) oe ED Course: 20:12 Patient arrived in ED. kj1 20:18 Jarvis Waldron PA is PHCP. cp 20:18 Kirby Lugo MD is Attending Physician. cp 20:30 Patient has correct armband on for positive identification. Call light in reach. kb3 Provided Education on: plan of care. 20:30 No provider procedures requiring assistance completed. Patient did not have IV access kb3 during this emergency room visit. 20:45 Triage completed. kb3 20:45 Arm band placed on right wrist. kb3 Administered Medications: 20:59 Drug: Ondansetron PO 4 mg Route: PO; kb3 21:45 Follow up: Response: No adverse reaction; Nausea is decreased; Vomiting decreased kb3 22:53 Drug: Oseltamivir PO 75 mg Route: PO; kb3 23:02 Follow up: Response: No adverse reaction kb3 Medication: 20:30 VIS not applicable for this client. kb3 Outcome: 22:30 Discharge ordered by . cp 23:00 Discharged to home ambulatory, with family. kb3 23:00 Condition: stable kb3 23:00 Discharge instructions given to patient, family, Instructed on discharge instructions, follow up and referral plans. medication usage, Demonstrated understanding of instructions, follow-up care, medications, Prescriptions given X 2. 23:05 Patient left the ED. kb3 Signatures: Jarvis Waldron PA PA cp Tyrone Schwarz oe Arabella Whitlock kj1 Jazmine Seaman, RN RN kb3
--- NOTE | 2023-04-12 22:31 | EDPHYS ---
Physician Documentation [facility] Name: Yanique Mcrae Age: 42 yrs Sex: Female : 1980 Arrival Date: 04/12/2023 Time: 20:03 Bed DIS6 Private MD: ED Physician Kirby Lugo HPI: 04/12 20:45 This 42 yrs old Female presents to ER via Ambulatory with complaints of cp Nausea/Vomiting. 20:45 The patient presents to the emergency department with nausea, vomiting, that is cp intermittent. Onset: The symptoms/episode began/occurred this morning. Possible causes: bad food exposure, pulled pork eaten last night. Associated signs and symptoms: Pertinent positives: abdominal cramps, Pertinent negatives: constipation, diarrhea, fever, GI bleeding, active vomiting. Severity of symptoms: in the emergency department the symptoms are unchanged despite home interventions. Historical: - Allergies: 20:45 No Known Allergies; kb3 - Home Meds: 20:45 None [Active]; kb3 - PMHx: 20:45 H Pylori; kb3 - PSHx: 20:45 Appendectomy; section; tubal; kb3 - Immunization history:: Adult Immunizations up to date. - Social history:: Smoking status: Patient denies any tobacco usage or history of. ROS: 20:50 Eyes: Negative for injury, pain, redness, and discharge. cp 20:50 Constitutional: Negative for body aches, chills, fever, poor PO intake. 20:50 ENT: Negative for drainage from ear(s), ear pain, sore throat, difficulty swallowing, difficulty handling secretions. 20:50 Cardiovascular: Negative for chest pain. 20:50 Respiratory: Negative for cough, shortness of breath, wheezing. 20:50 Abdomen/GI: Positive for nausea and vomiting, abdominal cramps, Negative for diarrhea, constipation, active vomiting. 20:50 Neuro: Negative for altered mental status, dizziness, headache. 20:50 All other systems are negative. Exam: 20:53 Constitutional: The patient appears in no acute distress, alert, awake, non-toxic, well cp developed, well nourished. 20:53 Head/Face: Normocephalic, atraumatic. cp 20:53 Eyes: Periorbital structures: appear normal, Conjunctiva: normal, Lids and lashes: appear normal, bilaterally. 20:53 ENT: External ear(s): are unremarkable, Nose: is normal, Mouth: Lips: moist, Oral mucosa: pink and intact, moist. 20:53 Chest/axilla: Inspection: normal. 20:53 Cardiovascular: Rate: normal. 20:53 Respiratory: the patient does not display signs of respiratory distress, Respirations: normal, no use of accessory muscles, no retractions, labored breathing, is not present, Breath sounds: are clear throughout, no decreased breath sounds, no stridor, no wheezing. 20:53 Abdomen/GI: Exam negative for discomfort, distension, guarding, Inspection: abdomen appears normal. 20:53 Skin: no rash present. Vital Signs: 20:40 BP 100 / 75; Pulse 78; Resp 18; Temp 98.5(TE); Pulse Ox 98% on R/A; Weight 56.7 kg; oe Height 5 ft. 1 in. ; 23:00 BP 110 / 75; Pulse 75; Resp 18; Temp 98.9; Pulse Ox 100% ; kb3 20:40 Body Mass Index 23.62 (56.70 kg, 154.94 cm) oe MDM: 20:24 Patient medically screened. 21:00 Differential diagnosis: Nonspecific abd pain, gastritis, viral gastroenteritis, cp gastroenteritis. 22:30 Data reviewed: vital signs, nurses notes, lab test result(s). 22:30 I considered the following discharge prescriptions or medication management in the emergency department Medications were administered in the Emergency Department. See MAR. Counseling: I had a detailed discussion with the patient and/or guardian regarding the historical points, exam findings, and any diagnostic results supporting the discharge/admit diagnosis, lab results, to return to the emergency department if symptoms worsen or persist or if there are any questions or concerns that arise at home. Response to treatment: the patient's symptoms have markedly improved after treatment, no vomiting observed, patient tolerating po fluids. Daughter positive for influenza B. Will treat with Tamiflu and discharge to home for continued monitoring. 04/12 20:36 Order name: COVID-19 SARS RT PCR; Complete Time: 22:14 04/12 22:14 Interpretation: Reviewed. 04/12 20:36 Order name: Influenza Screen (a \T\ B); Complete Time: 22:14 04/12 22:14 Interpretation: Reviewed. cp 04/12 21:19 Order name: PO challenge; Complete Time: 21:36 cp Administered Medications: 20:59 Drug: Ondansetron PO 4 mg Route: PO; kb3 21:45 Follow up: Response: No adverse reaction; Nausea is decreased; Vomiting decreased kb3 22:53 Drug: Oseltamivir PO 75 mg Route: PO; kb3 23:02 Follow up: Response: No adverse reaction kb3 Disposition Summary: 04/12/23 22:30 Discharge Ordered Location: Home cp Problem: new cp Symptoms: have improved cp Condition: Stable cp Diagnosis - Nausea with vomiting, unspecified cp - Viral infection, unspecified cp Followup: cp - With: Emergency Department - When: 1 - 2 days - Reason: Worsening of condition Discharge Instructions: - Discharge Summary Sheet cp - Influenza, Adult cp - Nausea and Vomiting, Adult cp Forms: - Medication Reconciliation Form cp - Thank You Letter cp - Antibiotic Education cp - Prescription Opioid Use cp - Patient Portal Instructions cp - Leadership Thank You Letter cp - Work release form kb3 Prescriptions: - Zofran 4 mg Oral Tablet - take 1 tablet by ORAL route every 12 hours As needed; 20 tablet; Refills: 0, cp Product Selection Permitted - Tamiflu 75 mg Oral Capsule - take 1 tablet by ORAL route every 12 hours for 5 days; 10 tablet; Refills: 0, cp Product Selection Permitted Signatures: Dispatcher [employer] EDMS Jarvis Waldron PA PA cp Jazmine Seaman, RN RN kb3 Corrections: (The following items were deleted from the chart) 04/13 22:53 22:52 Constitutional: Negative for body aches, chills, fever, poor PO intake, cp cp 22:53 22:52 Eyes: Negative for injury, pain, redness, and discharge, cp cp 22:54 22:52 Respiratory: Negative for cough, shortness of breath, wheezing, cp cp 22:54 22:52 Abdomen/GI: Positive for nausea and vomiting, abdominal cramps, Negative for cp diarrhea, constipation, active vomiting, cp 22:54 22:52 ENT: Negative for drainage from ear(s), ear pain, sore throat, difficulty cp swallowing, difficulty handling secretions, cp 22:54 22:52 Cardiovascular: Negative for chest pain, cp cp 22:54 22:52 Neuro: Negative for altered mental status, dizziness, headache, cp cp 22:54 22:52 All other systems are negative, cp cp 04/12 20:15 Eyes: Negative for injury, pain, redness, and discharge, cp cp 04/13 22:04/12 20:15 Constitutional: Negative for body aches, chills, fever, poor PO intake, cp cp
[2023-04-12] MEDS ORDERED: OSELTAMIVIR 75 MG CAP PO ONE (22:52)
[2023-04-12 23:16] VITALS: BP 110/75; TEMP 98.9; O2SAT 100
== END 2023-04-12 23:05 | disposition home or self-care (01) ==
LOC: ER 20:03
DX: B34.9 Viral infection, unspecified (principal); Z20.822 Contact with and (suspected) exposure to COVID-19
CPT/HCPCS: 87635; 87804 ×2; 99283; Q0162